=== PATIENT | female | born 1930 | race Caucasian/White ===

== ENCOUNTER 2016-12-16 06:49 | Day surgery (SDC) | payer MEDICARE, OTHER ==
[~2016-12-16 06:49] MED LIST: BUPIVACAINE HCL 0.75% INJ/PF (7.5 MG/1 ML) 10 ML SDV OS PRN; KETOROLAC TROMETHAMINE 0.45% 4 DROP/0.4 ML DROPERETTE OS PRN; LIDOCAINE 4% INJ/PF (40 MG/ML) 5 ML AMPUL OS PRN
[2016-12-16] MEDS ORDERED: PHENYLEPHRINE/KETOROLAC 1%-0.3% 4 ML VIAL ONE (07:12)
[2016-12-16] MEDS ORDERED: CHONDR SU A NA/HYALUR INTRAOC KIT (SURGICARE) ONE (07:12)
[2016-12-16] MEDS ORDERED: LIDOCAINE 1% INJ-PF (10 MG/ML) 30 ML SDV ONE (07:12)
[2016-12-16] MEDS ORDERED: HYALURONATE SODIUM SYRINGE 0.55 ML ONE (07:14)
[2016-12-16] MEDS: CYCLOPENTOLATE 0.2%/PHENYLEPHRINE 1% OPH SOLN 2 ML OS PRN ×3 (07:35→07:55)
[2016-12-16] MEDS: TROPICAMIDE 1% OPH SOLN 3 ML OS PRN ×3 (07:35→07:55)
[2016-12-16] MEDS: BESIFLOXACIN HCL 0.6% OPH SUSP 5 ML BOTTLE OS PRN ×4 (07:36→08:44)
[2016-12-16] MEDS: TETRACAINE HCL 0.5% OPH SOLN 0.6 ML DROPERETTE OS PRN ×2 (07:37→07:56)
[2016-12-16] MEDS ORDERED: MIDAZOLAM 2 MG/2 ML INJ ONE (07:45)
[2016-12-16] MEDS ORDERED: FENTANYL CITRATE INJ/PF 100 MCG/2 ML AMPUL ONE (07:45)
--- NOTE | 2016-12-16 09:23 | [facility] DISCHARGE SUMMARY E ---
[facility] Discharge Summary NAME: TAN ARAUJO AGE: 86Y ADMITTED: 12/16/2016 DISCHARGED: 12/16/2016 FINAL DIAGNOSES: 1. Cataract, left eye. 2. Glaucoma, left eye. INDICATIONS FOR SURGERY: Difficulty reading the newspaper and driving at night. HOSPITAL COURSE: The patient is an 86-year-old lady who underwent uneventful cataract extraction with insertion of iStent and intraocular lens, left eye. She will be discharged to home. She was instructed to resume preoperative medications, to take Tylenol as needed for discomfort, to keep her eye shielded, to use Besivance, Durezol and Ilevro at 3 p.m. and 8 p.m., to continue her Xalatan, and to follow up in my office in 1 day. DICTATING PHYSICIAN: DIANNE VALENCIA M.D. [id number] PHY#: [id number] ID: [id number] JOB#: [id number] ACCT: [id number] cc:DIANNE VALENCIA M.D. >
--- NOTE | 2016-12-16 09:24 | [facility] OPERATIVE REPORT E ---
[facility] Operative Report NAME: TAN ARAUJO AGE: 86Y DATE OF SURGERY: 12/16/2016 ROOM: PREOPERATIVE DIAGNOSES: 1. Cataract, left eye. 2. Glaucoma, left eye. POSTOPERATIVE DIAGNOSES: 1. Cataract, left eye. 2. Glaucoma, left eye. PROCEDURE PERFORMED: Phacoemulsification with posterior chamber intraocular lens, left eye, with insertion of iStent, left eye. SURGEON: DIANNE VALENCIA M.D. ANESTHESIA: Topical with MAC. PROCEDURE: The patient was brought to the Operating Room and placed on the operative table. Following tetracaine drops, topical anesthesia was administered. This consisted of instrument wipe pledgets soaked in a solution of 4% Xylocaine mixed with 0.75% Marcaine in a 1:2 ratio. A 2 x 1 cm pledget was placed in the superior fornix. A 1 x 1 cm pledget was placed in the inferior fornix. The eye was patched shut for 5 minutes. The patch was removed. The eye was sterilely prepped and draped in the usual manner. Lid speculum was placed in the eye. The pledgets were removed and 4-0 black silk sutures were placed around the superior and the inferior rectus muscles to be used as traction. A conjunctival peritomy was made at the 10 o'clock position. Hemostasis was obtained with bipolar cautery. A posterior limbal groove was created using a crescent knife and dissected anteriorly towards the cornea. A sharp point blade was used to create a paracentesis site at the 2 o'clock position. A 2.4-mm keratome was used to enter the anterior chamber through the groove. Viscoelastic was injected into the anterior chamber. An anterior capsulotomy was performed using Utrata forceps in a capsulorrhexis fashion. Hydrodissection and hydrodelineation were performed. Phacoemulsification was performed in schiau-bnp-wfmoqar technique. A total of 1 minute 27 seconds phaco time was used. Following this, the I/A unit was used to remove residual cortex. Viscoelastic was injected into the capsular bag. Intraocular lens model [id number], 23.0 diopters, serial number [id number], was placed in the capsular bag. Following insertion of intraocular lens, additional Provisc was placed in the eye. The microscope was tilted 30 degrees and the patient's head was rotated away from the microscope. A gonioprism was placed on the eye and the trabecular meshwork was adequately visualized. Viscoelastic was placed on the cornea. The iStent was opened. The iStent was placed in the incision and the goniolens placed back on the eye. The iStent was inserted into the trabecular meshwork uneventfully and seated well with reflux of blood through the lumen. The gonioprism was removed. The I/A unit was used to remove residual viscoelastic. The wound was seen to be watertight under high and low pressure, and no sutures were placed. The 4-0 black silk sutures and lid speculum were removed. Besivance was placed in the eye. The eye was shielded and the patient was sent to recovery room in good condition. DICTATING PHYSICIAN: DIANNE VALENCIA M.D. [id number] PHY#: [id number] ID: [id number] JOB#: [id number] ACCT: [id number] cc:DIANNE VALENCIA M.D. > MTDD
== END 2016-12-16 09:47 | disposition home or self-care (01) ==
LOC: SC 06:49
PROVIDERS: ATTEND Ophthalmology
PROC: 089330Z Drainage of Left Anterior Chamber with Drainage Device, Percutaneous Approach (ICD-10-PCS; 2016-12-16)
PROC: 08RK3JZ Replacement of Left Lens with Synthetic Substitute, Percutaneous Approach (ICD-10-PCS; principal; 2016-12-16 08:00)
DX: H25.812 Combined forms of age-related cataract, left eye (principal); H40.1121 Primary open-angle glaucoma, left eye, mild stage; E07.9 Disorder of thyroid, unspecified; Z79.899 Other long term (current) drug therapy
CPT/HCPCS: 0191T; 66984; 142; C1783; C9447; J2250; J3010; J3490; V2632

== ENCOUNTER 2017-01-06 08:41 | Day surgery (SDC) | payer MEDICARE, OTHER ==
[~2017-01-06 08:41] MED LIST changes: +BESIFLOXACIN HCL 0.6% OPH SUSP 5 ML BOTTLE OD PRN; +BUPIVACAINE HCL 0.75% INJ/PF (7.5 MG/1 ML) 10 ML SDV OD PRN; -BUPIVACAINE HCL 0.75% INJ/PF (7.5 MG/1 ML) 10 ML SDV OS PRN; +CYCLOPENTOLATE 0.2%/PHENYLEPHRINE 1% OPH SOLN 2 ML OD PRN; +KETOROLAC TROMETHAMINE 0.45% 4 DROP/0.4 ML DROPERETTE OD PRN; -KETOROLAC TROMETHAMINE 0.45% 4 DROP/0.4 ML DROPERETTE OS PRN; +LIDOCAINE 3.5% OPH GEL/PF 1 ML/TUBE OD PRN; +LIDOCAINE 4% INJ/PF (40 MG/ML) 5 ML AMPUL OD PRN; -LIDOCAINE 4% INJ/PF (40 MG/ML) 5 ML AMPUL OS PRN; +TROPICAMIDE 1% OPH SOLN 3 ML OD PRN
[2017-01-06] MEDS ORDERED: LIDOCAINE 1% INJ-PF (10 MG/ML) 30 ML SDV ONE (08:54)
[2017-01-06] MEDS ORDERED: PHENYLEPHRINE/KETOROLAC 1%-0.3% 4 ML VIAL ONE (08:54)
[2017-01-06] MEDS ORDERED: CHONDR SU A NA/HYALUR INTRAOC KIT (SURGICARE) ONE (08:54)
== END 2017-01-06 09:11 | disposition home or self-care (01) ==
LOC: SC 08:41
PROVIDERS: ATTEND Ophthalmology
DX: R69 Illness, unspecified (principal)
CPT/HCPCS: A9270 GY; C9447; J3490

== ENCOUNTER 2017-01-20 10:14 | Day surgery (SDC) | payer MEDICARE, OTHER ==
[~2017-01-20 10:14] MED LIST changes: -BESIFLOXACIN HCL 0.6% OPH SUSP 5 ML BOTTLE OD PRN; -CYCLOPENTOLATE 0.2%/PHENYLEPHRINE 1% OPH SOLN 2 ML OD PRN; -LIDOCAINE 3.5% OPH GEL/PF 1 ML/TUBE OD PRN; -TROPICAMIDE 1% OPH SOLN 3 ML OD PRN
[2017-01-20] MEDS ORDERED: LIDOCAINE 4% INJ/PF (40 MG/ML) 5 ML AMPUL ONE (11:46)
[2017-01-20] MEDS ORDERED: PHENYLEPHRINE/KETOROLAC 1%-0.3% 4 ML VIAL ONE (11:47)
[2017-01-20] MEDS ORDERED: LIDOCAINE 1% INJ-PF (10 MG/ML) 30 ML SDV ONE (11:47)
[2017-01-20] MEDS ORDERED: CHONDR SU A NA/HYALUR INTRAOC KIT (SURGICARE) ONE (11:48)
[2017-01-20] MEDS: CYCLOPENTOLATE 0.2%/PHENYLEPHRINE 1% OPH SOLN 2 ML OD PRN ×3 (11:54→12:14)
[2017-01-20] MEDS: BESIFLOXACIN HCL 0.6% OPH SUSP 5 ML BOTTLE OD PRN ×3 (11:54→13:37)
[2017-01-20] MEDS: TROPICAMIDE 1% OPH SOLN 3 ML OD PRN ×3 (11:54→12:14)
[2017-01-20] MEDS: LIDOCAINE 3.5% OPH GEL/PF 1 ML/TUBE OD PRN ×2 (11:55→12:14)
[2017-01-20] MEDS ORDERED: MIDAZOLAM 2 MG/2 ML INJ ONE (12:25)
[2017-01-20] MEDS ORDERED: FENTANYL CITRATE INJ/PF 100 MCG/2 ML AMPUL ONE (12:25)
--- NOTE | 2017-01-20 16:22 | [facility] OPERATIVE REPORT E ---
[facility] Operative Report NAME: TAN ARAUJO AGE: 86Y DATE OF SURGERY: 01/20/2017 ROOM: PREOPERATIVE DIAGNOSIS: 1. Cataract, right eye. 2. Glaucoma, right eye. POSTOPERATIVE DIAGNOSIS: 1. Cataract, right eye. 2. Glaucoma, right eye. OPERATION: Phacoemulsification with posterior chamber intraocular lens implant with insertion of eye stent, right eye. SURGEON: DIANNE VALENCIA M.D. ANESTHESIA: Topical with intraocular lidocaine. PROCEDURE: The patient was brought to the Operating Room and placed on the operative table. Following tetracaine drops, topical anesthesia was administered. This consisted of instrument wipe pledgets soaked in a solution of 4% Xylocaine mixed with 0.75% Marcaine in a 1:2 ratio. A 2 x 1 cm pledget was placed in the superior fornix. A 1 x 1 cm pledget was placed in the inferior fornix. The eye was patched shut for 5 minutes. The patch was removed. The eye was sterilely prepped and draped in the usual manner. Lid speculum was placed in the eye. The pledgets were removed. 4-0 black silk sutures were placed around the superior and the inferior rectus muscles to be used as traction. A conjunctival peritomy was made at the 10 o'clock position. Hemostasis was obtained with bipolar cautery. A posterior limbal groove was created using a crescent knife and dissected anteriorly towards the cornea. A sharp point blade was used to create a paracentesis site at the 2 o'clock position. A 2.4 mm keratome was used to enter the anterior chamber through the groove. Viscoelastic was injected into the anterior chamber. An anterior capsulotomy was performed using Utrata forceps in a capsulorrhexis fashion. Hydrodissection and hydrodelineation were performed. Phacoemulsification was performed in wnlpnx-hck-olflxiv technique. A total of 1 minute and 47 seconds phaco time was used. Following this, the I/A unit was used to remove residual cortex. Viscoelastic was injected into the capsular bag. Intraocular lens model SN60WF, 22.0 diopters, serial number [id number] was placed in the capsular bag. Following insertion of lens implant, additional Provisc was placed into the anterior chamber. The patient's head was rotated 30 degrees to the left, and the microscope was also tilted 30 degrees. A gonioprism was placed on the eye, and the trabecular mesh work was easily visualized. The eye stent was opened, and the eye stent was placed in the trabecular mesh work. It seated nicely with blood reflux through the lumen. Following this, the Malyugin eye unit was used to remove residual viscoelastic. The wound seemed to be watertight under high/low pressure and sutures were placed, 4-0 black silk sutures and lid speculum removed. The eye was shielded after Besivance drops were placed. The patient tolerated the procedure well and was sent to the recovery room in good condition. DICTATING PHYSICIAN: DIANNE VALENCIA M.D. [id number] PHY#: [id number] ID: [id number] JOB#: [id number] ACCT: [id number] cc:DIANNE VALENCIA M.D. > MTDD
--- NOTE | 2017-01-20 16:27 | DISCHARGE SUMMARY E ---
Discharge Summary NAME: TAN ARAUJO : 1930 AGE: 86Y ADMITTED: 01/20/2017 DISCHARGED: 01/20/2017 HISTORY AND HOSPITAL COURSE: The patient is an 86-year-old lady who underwent uneventful cataract extraction with intraocular lens implant with insertion of eye stent right eye on 01/20/2017. She will be discharged to home. She is instructed to resume preoperative medications, take Tylenol as needed for discomfort, to keep her eye shielded, to use Durezol, Ilevro, Besivance at 3:00 p.m. and 8:00 p.m., to use her latanoprost at night, and to follow up in my office in 1 day. DICTATING PHYSICIAN: DIANNE VALENCIA M.D. [id number] PHY#: [id number] ID: [id number] JOB#: [id number] ACCT: [id number] cc:DIANNE VALENCIA M.D. >
== END 2017-01-20 14:36 | disposition home or self-care (01) ==
LOC: SC 10:14
PROVIDERS: ATTEND Ophthalmology
PROC: 08RJ3JZ Replacement of Right Lens with Synthetic Substitute, Percutaneous Approach (ICD-10-PCS; 2017-01-20)
PROC: 089230Z Drainage of Right Anterior Chamber with Drainage Device, Percutaneous Approach (ICD-10-PCS; principal; 2017-01-20 11:45)
DX: H25.811 Combined forms of age-related cataract, right eye (principal); H40.1111 Primary open-angle glaucoma, right eye, mild stage; Z96.1 Presence of intraocular lens; Z98.42 Cataract extraction status, left eye; E07.9 Disorder of thyroid, unspecified
CPT/HCPCS: 0191T; 66984; 142; A9270 GY; C1783; C9447; J2250; J3010; J3490; V2632

== ENCOUNTER → 2017-05-14 | Outpatient (CLI) | payer MEDICARE, OTHER ==
--- NOTE | 2017-05-14 16:23 | WOMENS IMAGING REPORT ---
EXAM DESCRIPTION: BILAT SCREENING MAMMO W/CAD COMPLETED DATE/TIME: 05/14/2017 2:34 pm REASON FOR STUDY: SCREENING MAMMO Z12.31 ENCNTR SCREEN MAMMOGRAM FOR MALIGNANT NEOPLASM OF DOE COMPARISON: 2011 to 2015 TECHNIQUE: Standard craniocaudal and mediolateral oblique views of each breast recorded using digita l acquisition. LIMITATIONS: None. FINDINGS: No masses, calcifications or architectural distortion. No areas of suspicion. Read with the assistance of CAD. .[facility] - R2 Cenova Version 1.3 .[facility] Imaging - R2 Cenova Version 1.3 .[facility] - R2 Cenova Version 2.4 .[facility] - R2 Cenova Version 2.4 .[facility] - R2 Drill Operator Version 9.2 IMPRESSION: NORMAL MAMMOGRAM. BIRADS 1. BREAST DENSITY: b. There are scattered areas of fibroglandular density. BIRAD: 1 NEGATIVE RECOMMENDATION: ROUTINE SCREENING COMMENT: The patient has been notified of the results by letter per MQSA requirements. Additional no tification policies are in place for contacting patient with suspicious or incomplete findings. Quality ID #225: The [employer] recommends an annual screening mammogram for women aged 40 years or over. This facility utilizes a reminder system to ensure that all patients receive reminder letters, and/or direct phone calls for appointments. This includes reminders for routine scr eening mammograms, diagnostic mammograms, or other Breast Imaging Interventions when appropriate. Th is patient will be placed in the appropriate reminder system. The [employer] (ACR) has developed recommendations for screening MRI of the breast s in certain patient populations, to be used in conjunction with mammography. Breast MRI surveillanc e may be appropriate for women with more than 20% lifetime risk of developing breast cancer as deter mined by genetic testing, significant family history of the disease, or history of mantle radiation f or Hodgkins Disease. ACR Practice Guidelines 2008. TECHNICAL DOCUMENTATION: FINDING NUMBER: (1) ASSESSMENT: (1) JOB ID: [id number] [employer]- All Rights Reserved
== END ==
LOC: WI 13:25
PROVIDERS: ATTEND Internal Medicine
DX: Z12.31 Encounter for screening mammogram for malignant neoplasm of breast (principal)
CPT/HCPCS: 77067; G0202

== ENCOUNTER → 2018-05-28 | Outpatient (CLI) | payer MEDICARE, OTHER ==
[2018-05-28 10:00] LABS: ABSOLUTE BASOPHILS # (AUTO) 0.1 10^3/uL (0.0-0.2); ABSOLUTE EOSINOPHILS # (AUTO) 0.1 10^3/uL (0.0-0.6); ABSOLUTE LYMPHOCYTES (AUTO) 1.2 10^3/uL (0.5-4.7); ABSOLUTE MONOCYTES (AUTO) 1.3 10^3/uL (0.1-1.4); ABSOLUTE NEUT (AUTO) 8.3 10^3/uL (1.7-8.2); BASOPHILS % (AUTO) 0.5 % (0-2); EOSINOPHILS % (AUTO) 0.7 % (0-6); HEMATOCRIT 39.1 % (36.0-47.0); HEMOGLOBIN 13.8 g/dL (12.0-15.5); LYMPHOCYTES % (AUTO) 10.9 % (13-45); MEAN CORPUSCULAR HEMOGLOBIN 31.7 pg (27.0-33.4); MEAN CORPUSCULAR HGB CONC 35.4 g/dL (32.0-36.0); MEAN CORPUSCULAR VOLUME 90 fl (80-97); MONOCYTES % (AUTO) 11.8 % (3-13); PLATELET COUNT 280 10^3/uL (150-450); RED BLOOD COUNT 4.36 10^6/uL (3.72-5.28); RED CELL DISTRIBUTION WIDTH 13.4 % (11.5-14.0); SEGMENTED NEUTROPHILS % (AUTO) 76.1 % (42-78); TOTAL CELLS COUNTED % (AUTO) 100 %
[2018-05-29 12:31] LABS: ALANINE AMINOTRANSFERASE 28 U/L (9-52); ALKALINE PHOSPHATASE 51 U/L (38-126); ANION GAP 9 (5-19); ASPARTATE AMINO TRANSFERASE 46 U/L (14-36); BILIRUBIN,DIRECT 0.4 mg/dL (0.0-0.4); BILIRUBIN,TOTAL 0.7 mg/dL (0.2-1.3); BLOOD UREA NITROGEN 19 mg/dL (7-20); CALCIUM 9.4 mg/dL (8.4-10.2); CARBON DIOXIDE 28 mmol/L (22-30); CHLORIDE 96 mmol/L (98-107); CHOLESTEROL 133.27 mg/dL (0-200); GLUCOSE 107 mg/dL (75-110); POTASSIUM 4.3 mmol/L (3.6-5.0); SODIUM 132.7 mmol/L (137-145); TOTAL PROTEIN 5.8 g/dL (6.3-8.2); TRIGLYCERIDES 104 mg/dL (<150)
[2018-05-29 12:42] LABS: DIRECT LDL 62 mg/dL (<100)
[2018-05-29 12:48] LABS: FREE T4 (FREE THYROXINE) 1.43 ng/dL (0.78-2.19)
[2018-05-29 13:01] LABS: THYROID STIMULATING HORMONE 3.17 uIU/mL (0.47-4.68)
== END ==
LOC: OD 09:21
PROVIDERS: ATTEND Internal Medicine
DX: E03.9 Hypothyroidism, unspecified (principal); E43 Unspecified severe protein-calorie malnutrition; R53.83 Other fatigue; E78.00 Pure hypercholesterolemia, unspecified; F03.90 Unspecified dementia, unspecified severity, without behavioral disturbance, psychotic disturbance, mood disturbance, and anxiety
CPT/HCPCS: 36415; 80053; 80061; 82607; 84439; 84443; 85025

== ENCOUNTER → 2018-06-03 | Outpatient (CLI) | payer MEDICARE, OTHER ==
--- NOTE | 2018-06-03 14:49 | WOMENS IMAGING REPORT ---
EXAM DESCRIPTION: BILAT SCREENING MAMMO W/CAD COMPLETED DATE/TIME: 06/03/2018 12:15 pm REASON FOR STUDY: SCREENING MAMMO Z12.31 ENCNTR SCREEN MAMMOGRAM FOR MALIGNANT NEOPLASM OF DOE COMPARISON: Multiple since 2008 TECHNIQUE: Standard craniocaudal and mediolateral oblique views of each breast recorded using digita l acquisition. LIMITATIONS: None. FINDINGS: No masses, calcifications or architectural distortion. No areas of suspicion. Read with the assistance of CAD. .[facility] - R2 Cenova Version 1.3 .[facility] Imaging - R2 Cenova Version 1.3 .[facility] - R2 Cenova Version 2.4 .[facility] [place] - R2 Cenova Version 2.4 .[facility] - R2 Heating Mechanic Version 9.2 IMPRESSION: NORMAL MAMMOGRAM. BIRADS 1. BREAST DENSITY: b. There are scattered areas of fibroglandular density. BIRAD: 1 NEGATIVE RECOMMENDATION: ROUTINE SCREENING COMMENT: The patient has been notified of the results by letter per MQSA requirements. Additional no tification policies are in place for contacting patient with suspicious or incomplete findings. Quality ID #225: The [employer] recommends an annual screening mammogram for women aged 40 years or over. This facility utilizes a reminder system to ensure that all patients receive reminder letters, and/or direct phone calls for appointments. This includes reminders for routine scr eening mammograms, diagnostic mammograms, or other Breast Imaging Interventions when appropriate. Th is patient will be placed in the appropriate reminder system. The [employer] (ACR) has developed recommendations for screening MRI of the breast s in certain patient populations, to be used in conjunction with mammography. Breast MRI surveillanc e may be appropriate for women with more than 20% lifetime risk of developing breast cancer as deter mined by genetic testing, significant family history of the disease, or history of mantle radiation f or Hodgkins Disease. ACR Practice Guidelines 2008. TECHNICAL DOCUMENTATION: FINDING NUMBER: (1) ASSESSMENT: (1) JOB ID: [id number] [employer]- All Rights Reserved Reading location - IP/workstation name: [email or web address]
== END ==
LOC: WI 11:37
PROVIDERS: ATTEND Internal Medicine
DX: Z12.31 Encounter for screening mammogram for malignant neoplasm of breast (principal)
CPT/HCPCS: 77067

== ENCOUNTER 2018-06-10 17:26 | Inpatient (IN) | payer MEDICARE, OTHER ==
[~2018-06-10 17:26] MED LIST changes: -BUPIVACAINE HCL 0.75% INJ/PF (7.5 MG/1 ML) 10 ML SDV OD PRN; +DEXAMETHASONE SOD PHOSPHATE INJ 4 MG/1 ML VIAL ONE; -KETOROLAC TROMETHAMINE 0.45% 4 DROP/0.4 ML DROPERETTE OD PRN; +LIDOCAINE 2% INJ-PF (20 MG/ML) 2 ML AMPUL ONE; -LIDOCAINE 4% INJ/PF (40 MG/ML) 5 ML AMPUL OD PRN; +METOCLOPRAMIDE HCL INJ/PF 10 MG/2 ML SDV ONE; +ONDANSETRON HCL INJ/PF 4 MG/2 ML SDV ONE; +PHENYLEPHRINE HCL INJ/PF 10 MG/1 ML SDV ONE; +ROCURONIUM BROMIDE INJ 50 MG/5 ML VIAL IV ONE; +SUCCINYLCHOLINE CHLORIDE INJ 200 MG/10 ML VIAL ONE
[2018-06-10] MEDS ORDERED: NORMAL SALINE 1000 ML 1,000 ML IV ONE ×2 (18:04→21:25)
--- NOTE | 2018-06-10 18:08 | ER Document Report ---
ED Medical Screen (RME) - General Chief Complaint: Constipation Stated Complaint: ABDOMINAL PAIN Time Seen by Provider: 06/10/18 17:57 Mode of Arrival: Medic Information source: Patient, Relative - Son and [id number] Notes: Patient presents emergency department with complaints of severe abdominal pain past 3 days. Son reports very little p.o. intake drinks 1 Ensure a day with decreased appetite. Reports he had the same issue around Georgina time possible constipation. They have been giving patient prune juice and fluids and nothing has helped. Patient does not remember when her last bowel movement was. Abdomen is very distended very tender to palpation no bowel sounds noted TRAVEL OUTSIDE OF THE [place] IN LAST 30 DAYS: No - Related Data Allergies/Adverse Reactions: No Known Allergies Allergy (Unverified 11/11/11 11:18) Past Medical History - Past Medical History Cardiac Medical History: Denies: Hx Coronary Artery Disease, Hx Heart Attack, Hx Hypertension Pulmonary Medical History: Denies: Hx Asthma, Hx Bronchitis, Hx COPD, Hx Pneumonia Neurological Medical History: Denies: Hx Cerebrovascular Accident, Hx Seizures Endocrine Medical History: Reports: Hx Hypothyroidism GI Medical History: Denies: Hx Hepatitis, Hx Hiatal Hernia, Hx Ulcer Musculoskeltal Medical History: Denies Hx Arthritis Psychiatric Medical History: Reports: Hx Dementia Infectious Medical History: Denies: Hx Hepatitis Past Surgical History: Reports: Hx Tonsillectomy. Denies: Hx Hysterectomy, Hx Mastectomy, Hx Open Heart Surgery, Hx Pacemaker - Immunizations Hx Diphtheria, Pertussis, Tetanus Vaccination: Yes
[2018-06-10 18:34] LABS: ABSOLUTE LYMPHOCYTES (AUTO) 0.5 10^3/uL (0.5-4.7); ABSOLUTE MONOCYTES (AUTO) 0.5 10^3/uL (0.1-1.4); ABSOLUTE NEUT (AUTO) 8.6 10^3/uL (1.7-8.2); BASOPHILS % (AUTO) 0.2 % (0-2); HEMATOCRIT 47.3 % (36.0-47.0); LYMPHOCYTES % (AUTO) 5.3 % (13-45); MEAN CORPUSCULAR HEMOGLOBIN 30.9 pg (27.0-33.4); MEAN CORPUSCULAR HGB CONC 33.9 g/dL (32.0-36.0); MEAN CORPUSCULAR VOLUME 91 fl (80-97); MONOCYTES % (AUTO) 4.8 % (3-13); PLATELET COUNT 428 10^3/uL (150-450); RED BLOOD COUNT 5.18 10^6/uL (3.72-5.28); SEGMENTED NEUTROPHILS % (AUTO) 89.7 % (42-78); TOTAL CELLS COUNTED % (AUTO) 100 %; WHITE BLOOD COUNT 9.6 10^3/uL (4.0-10.5)
[2018-06-10 18:39] LABS: ALANINE AMINOTRANSFERASE 17 U/L (9-52); ALBUMIN 3.2 g/dL (3.5-5.0); ALKALINE PHOSPHATASE 56 U/L (38-126); ANION GAP 10 (5-19); ASPARTATE AMINO TRANSFERASE 70 U/L (14-36); BILIRUBIN,DIRECT 0.5 mg/dL (0.0-0.4); BILIRUBIN,TOTAL 0.9 mg/dL (0.2-1.3); BLOOD UREA NITROGEN 18 mg/dL (7-20); CALCIUM 9.6 mg/dL (8.4-10.2); CARBON DIOXIDE 28 mmol/L (22-30); CHLORIDE 92 mmol/L (98-107); GLUCOSE 232 mg/dL (75-110); LIPASE 105.1 U/L (23-300); POTASSIUM 4.6 mmol/L (3.6-5.0); TOTAL PROTEIN 6.3 g/dL (6.3-8.2)
--- NOTE | 2018-06-10 18:41 | RADIOLOGY REPORT (SQ) ---
EXAM DESCRIPTION: KUB/ABDOMEN (SINGLE VIEW) COMPLETED DATE/TIME: 06/10/2018 6:25 pm REASON FOR STUDY: distended, pain, ? constipation COMPARISON: None. NUMBER OF VIEWS: One view. TECHNIQUE: Supine radiographic image of the abdomen acquired. LIMITATIONS: None. FINDINGS: BOWEL GAS PATTERN: Relative paucity of bowel gas. No dilated loops. No excessive stool. CALCIFICATIONS: No suspicious calcifications. SOFT TISSUES: No gross mass or suggestion of organomegaly. HARDWARE: None in the abdomen. BONES: No acute fracture. Degenerative changes in the spine. No worrisome bone lesions. OTHER: No other significant finding. IMPRESSION: NO RADIOGRAPHIC EVIDENCE FOR ACUTE ABDOMINAL DISEASE. TECHNICAL DOCUMENTATION: JOB ID: [id number] [employer]- All Rights Reserved Reading location - IP/workstation name: [email or web address]
[2018-06-10] MEDS ORDERED: ACETAMINOPHEN 650 MG SUPP.RECT PR ONE (19:10)
--- NOTE | 2018-06-10 19:12 | ER Document Report ---
ED General - General Chief Complaint: Constipation Stated Complaint: ABDOMINAL PAIN Time Seen by Provider: 06/10/18 17:57 Mode of Arrival: Ambulatory Information source: Patient Notes: This is an 87-year-old female with a history of hypothyroidism emergency room with weakness, abdominal distention and abdominal pain for the last few days. Patient's family states she is been too weak to get out of bed. TRAVEL OUTSIDE OF THE [place] IN LAST 30 DAYS: No - HPI Onset: Last week Onset/Duration: Gradual Quality of pain: Dull Severity: Moderate Pain Level: 2 Associated symptoms: denies: Chest pain, Nonproductive cough, Diarrhea, Fever, Nausea, Vomiting, Shortness of breath Exacerbated by: Denies Relieved by: Denies Similar symptoms previously: No Recently seen / treated by doctor: No - Related Data Allergies/Adverse Reactions: No Known Allergies Allergy (Unverified 11/11/11 11:18) Past Medical History - General Information source: Patient, Relative - Son and [id number] - Social History Smoking Status: Never Smoker Cigarette use (# per day): No Chew tobacco use (# tins/day): No Frequency of alcohol use: None Drug Abuse: None Lives with: Family Family History: None Patient has suicidal ideation: No Patient has homicidal ideation: No - Past Medical History Cardiac Medical History: Denies: Hx Coronary Artery Disease, Hx Heart Attack, Hx Hypertension Pulmonary Medical History: Denies: Hx Asthma, Hx Bronchitis, Hx COPD, Hx Pneumonia Neurological Medical History: Denies: Hx Cerebrovascular Accident, Hx Seizures Endocrine Medical History: Reports: Hx Hypothyroidism Renal/ Medical History: Denies: Hx Peritoneal Dialysis GI Medical History: Denies: Hx Hepatitis, Hx Hiatal Hernia, Hx Ulcer Musculoskeletal Medical History: Denies Hx Arthritis Psychiatric Medical History: Reports: Hx Dementia Infectious Medical History: Denies: Hx Hepatitis Past Surgical History: Reports: Hx Tonsillectomy. Denies: Hx Hysterectomy, Hx Mastectomy, Hx Open Heart Surgery, Hx Pacemaker - Immunizations Hx Diphtheria, Pertussis, Tetanus Vaccination: Yes Review of Systems - Review of Systems Constitutional: denies: Chills, Fever EENT: No symptoms reported Cardiovascular: No symptoms reported Respiratory: No symptoms reported Gastrointestinal: See HPI, Abdominal pain Genitourinary: No symptoms reported Female Genitourinary: No symptoms reported Musculoskeletal: No symptoms reported Skin: No symptoms reported Hematologic/Lymphatic: No symptoms reported Neurological/Psychological: See HPI, Weakness Physical Exam - Vital signs Vitals: Temp Pulse Resp BP Pulse Ox 97.6 F 117 H 20 134/80 H 95 06/10/18 17:34 06/10/18 17:34 06/10/18 17:34 06/10/18 17:34 06/10/18 17:34 Notes: Physical exam: GENERAL: 87-year-old female, appears ill, answering questions HEAD: Atraumatic, normocephalic. EYES: Pupils equal round and reactive to light, extraocular movements intact, sclera anicteric, conjunctiva are normal. ENT: TMs normal, nares patent, oropharynx clear without exudates. Moist mucous membranes. NECK: Normal range of motion, supple without obvious mass or JVD. LUNGS: Breath sounds clear to auscultation bilaterally and equal. No wheezes rales or rhonchi. HEART: Regular rate and rhythm without murmurs, rubs or gallops. ABDOMEN: Soft, distended with lower abdominal tenderness more on the left side. Rectal: Scant stool in vault, brown stool, sent for study, temperature 101.4 rectally EXTREMITIES: Normal range of motion, no pitting or edema. No clubbing or cyanosis. Back: Patient has no palpable tenderness to the spine. NEUROLOGICAL: Cranial nerves II through XII grossly intact. Normal speech, moving all extremities. PSYCH: Normal mood, normal affect. SKIN: Warm, Dry, normal turgor, no rashes or lesions noted. Course - Re-evaluation Re-evalutation: 06/10/18 21:39 Patient is n.p.o. at this point. IV fluids and IV antibiotics being administered. I discussed the results of the CT with the radiologist as well as Dr. Keys (general surgery) - Vital Signs Vital signs: Temp Pulse Resp BP Pulse Ox 101.4 F H 100 24 H 151/88 H 100 06/10/18 19:03 06/10/18 22:11 06/10/18 22:11 06/10/18 22:11 06/10/18 22:11 - Laboratory Result Diagrams: 06/10/18 17:03 06/10/18 17:03 Laboratory results interpreted by me: 06/10/18 06/10/18 06/10/18 17:03 17:03 20:00 Hgb 16.0 H Hct 47.3 H Seg Neutrophils % 89.7 H Lymphocytes % 5.3 L Absolute Neutrophils 8.6 H Sodium 130.0 L Chloride 92 L Est GFR (Non-Af Amer) 57 L Glucose 232 H Lactic Acid 4.6 H Direct Bilirubin 0.5 H AST 70 H Albumin 3.2 L Urine Protein Urine Glucose (UA) Urine Ketones Urine Urobilinogen Urine Ascorbic Acid 06/10/18 22:17 Hgb Hct Seg Neutrophils % Lymphocytes % Absolute Neutrophils Sodium Chloride Est GFR (Non-Af Amer) Glucose Lactic Acid Direct Bilirubin AST Albumin Urine Protein 100 H Urine Glucose (UA) 50 H Urine Ketones TRACE H Urine Urobilinogen 2.0 H Urine Ascorbic Acid 40 H - Diagnostic Test Radiology reviewed: Image reviewed, Reports reviewed - CT of the abdomen shows free air under the left hemidiaphragm Critical Care Note - Critical Care Note Total time excluding time spent on procedures (mins): 60 Discharge - Discharge Clinical Impression: Acute peritonitis, Perforated viscus Condition: Serious Disposition: ADMITTED INPATIENT Admitting Provider: Surgicalist Unit Admitted: Surgical Floor
--- NOTE | 2018-06-10 19:38 | RADIOLOGY REPORT (SQ) ---
EXAM DESCRIPTION: CHEST SINGLE VIEW COMPLETED DATE/TIME: 06/10/2018 7:21 pm REASON FOR STUDY: chest pain COMPARISON: 01/26/2016. EXAM PARAMETERS: NUMBER OF VIEWS: One view. TECHNIQUE: Single frontal radiographic view of the chest acquired. RADIATION DOSE: NA LIMITATIONS: None. FINDINGS: LUNGS AND PLEURA: Mild pleural and parenchymal scarring. No opacities, masses or pneumoth orax. No pleural effusion. MEDIASTINUM AND HILAR STRUCTURES: No masses. Contour normal. HEART AND VASCULAR STRUCTURES: Heart normal in size. Normal vasculature. BONES: No acute findings. HARDWARE: None in the chest. OTHER: No other significant finding. IMPRESSION: CHRONIC SCARRING. NO ACUTE RADIOGRAPHIC FINDING IN THE CHEST. TECHNICAL DOCUMENTATION: JOB ID: [id number] [employer]- All Rights Reserved Reading location - IP/workstation name: [email or web address]
[2018-06-10] MEDS ORDERED: ERTAPENEM SODIUM INJ 1 GM VIAL IV ONE (20:28)
--- NOTE | 2018-06-10 21:24 | RADIOLOGY REPORT (SQ) ---
EXAM DESCRIPTION: CT ABDOMEN PELVIS WITH IV CONTRAST COMPLETED DATE/TME: 06/10/2018 19:07 CLINICAL HISTORY: 87 years, Female, acute abd pain COMPARISON: 01/26/2016 CT TECHNIQUE: 357 Images stored on PACS. All CT scanners at this facility use dose modulation, iterative reconstruction, and/or weight based dosing when appropriate to reduce radiation dose to as low as reasonably achievable (ALARA). [facility]: Dose Right [facility]: CareDose [facility]: Dose Right [facility]: Teradose 4D [facility]: Fullscreen LIMITATIONS: None. FINDINGS: Limited evaluation of the lung bases demonstrates small bibasilar pleural effusions. Osseous structures of the abdomen/pelvis are grossly intact. There is a large volume of free fluid. There is free intraperitoneal air, consistent with rupture of a hollow viscus. Exact site of the rupture is indeterminate. Subjective wall thickening of the distal esophagus. A large amount of the free intraperitoneal air is in the upper abdomen.. However, there are dilated fluid-filled loops of small bowel with relative decompression of the colon. The spleen, adrenal glands, are unremarkable. Atrophic appearance to the pancreas. There are lobulated cystic structures associated with the body of the stomach. These measure approximately 3.0 x 3.0 cm and 3.6 x 2.7 cm, respectively. Severe atheromatous change. Fibroid change to the uterus. Some of the free intraperitoneal air extends to the melba hepatis and into the posterior mediastinum/GE junction. Normal appendix.. IMPRESSION: Free intraperitoneal air consistent with rupture of a hollow viscus. Large volume of ascites. Exact site for the perforated viscus is indeterminate. Some of the free intraperitoneal air extends into the posterior mediastinum/GE junction region. Subjective wall thickening of the distal esophagus. There are 2 somewhat thick walled cystic masses associated with the stomach, possibly relating to gastric cysts versus pseudocysts. Areas of abscess not excluded . Atrophic appearance to the pancreas. Not stated previously, there is also a 3.8 mm hypodensity in the body of the pancreas which could reflect tiny cyst adenoma. Dilated fluid-filled loops of small bowel, with several small bowel loops having a thick-walled appearance. Findings may reflect reactive enteritis with ileus. Partial or incomplete obstruction not excluded. Small bibasilar pleural effusions.. TECHNICAL DOCUMENTATION: Quality ID # [id number]: Final reports with documentation of one or more dose reduction techniques (e.g., Automated exposure control, adjustment of the mA and/or kV according to patient size, use of iterative reconstruction technique) copyright 2010 [employer]- All Rights Reserved
--- NOTE | 2018-06-10 22:06 | PDOC H&P ---
History of Present Illness Admission Date/PCP: RAJ GUERRERO MD Patient complains of: Generalized weakness History of Present Illness: TAN ARAUJO is a 87 year old female With dementia noted with generalized weakness over the past couple weeks that has progressively worsened to the point where she has been bedbound for the last couple of days. Patient was noted with abdominal distention with marked tenderness today and she was subsequently brought in. She has had a poor appetite over the past several weeks. Uncertain whether she has had any fever. Uncertain whether she has experienced any constipation. Family notes that she has had no nausea or vomiting. And although she has had a poor appetite she has been holding down any that she consumes. She had a colonoscopy several years ago that apparently was normal. She has no history of gastrointestinal problems in the past. No history of reflux disease. No history of dysphasia. No alcoh ol nor cigarette smoking abuse. No family history of gastrointestinal malignancies. Past Medical History Cardiac Medical History: Denies: Coronary Artery Disease, Myocardial Infarction, Hypertension Pulmonary Medical History: Denies: Asthma, Bronchitis, Chronic Obstructive Pulmonary Disease (COPD), Pneumonia Neurological Medical History: Denies: Seizures Endocrine Medical History: Reports: Hypothyroidism GI Medical History: Denies: Hepatitis, Hiatal Hernia Musculoskeltal Medical History: Denies: Arthritis Psychiatric Medical History: Reports: Dementia Hematology: Denies: Anemia, Sickle Cell Disease Past Surgical History Past Surgical History: Reports: Tonsillectomy Denies: Amputation, Hysterectomy, Mastectomy, Pacemaker Social History Smoking Status: Never Smoker Frequency of Alcohol Use: None Hx Recreational Drug Use: No Family History Family History: None Parental Family History Reviewed: Yes Children Family History Reviewed: Yes Sibling(s) Family History Reviewed.: Yes Medication/Allergy Home Medications: Calcium/Magnesium/Vit D3 [Calcium 500 mg Tablet] 1,000 mg PO DAILY 11/11/11 Levothyroxine Sodium [Synthroid 88 Mcg Tablet] 88 mcg PO DAILY 11/11/11 Pnv W-O Ca No5/Fe Fumarate/FA [-U Capsule] 1 cap PO DAILY 11/11/11 Raloxifene HCl [Evista 60 mg Tablet] 60 mg PO DAILY 11/11/11 Besifloxacin HCl [Besivance 0.6% Oph Susp 5 ml] 1 drop OP ASDIR 12/09/16 Cyclosporine 0.05% Oph Emulsio [Restasis 0.05% Opthalmic Droperette] 1 drop OP ASDIR PRN 12/09/16 Difluprednate [Durezol] 1 drop OP ASDIR 12/09/16 Latanoprost 1 drop OP ASDIR 12/09/16 Nepafenac [Ilevro] 1 drop OP ASDIR 12/09/16 Tolterodine Tartrate [Detrol] 2 mg PO DAILY 12/09/16 Allergies/Adverse Reactions: No Known Allergies Allergy (Unverified 11/11/11 11:18) Review of Systems All systems: reviewed and no additional remarkable complaints except as stated Constitutional: PRESENT: as per HPI, other - No significant weight loss as per the family. Gastrointestinal: PRESENT: as per HPI Endocrine: PRESENT: other - History of hypothyroidism. Physical Exam Vital Signs: Temp Pulse Resp BP Pulse Ox 101.4 F H 117 H 20 134/80 H 95 06/10/18 19:03 06/10/18 17:34 06/10/18 17:34 06/10/18 17:34 06/10/18 17:34 Intake & Output 06/09/18 06/10/18 06/11/18 06:59 06:59 06:59 Intake Total 1000 Balance 1000 Weight 54.6 kg General appearance: PRESENT: no acute distress, cooperative Eye exam: PRESENT: conjunctiva pink Neck exam: PRESENT: other - Supple with no tenderness. No crepitus. Respiratory exam: PRESENT: clear to auscultation fahad Cardiovascular exam: PRESENT: tachycardia GI/Abdominal exam: PRESENT: other - Distended firm diffuse abdominal tenderness with guarding. Neurological exam: PRESENT: alert, awake Psychiatric exam: PRESENT: flat affect Skin exam: PRESENT: warm Results Laboratory Results: 06/10/18 17:03 06/10/18 17:03 06/10/18 06/10/18 06/10/18 17:03 17:03 19:03 WBC 9.6 RBC 5.18 Hgb 16.0 H Hct 47.3 H MCV 91 MCH 30.9 MCHC 33.9 RDW 14.0 Plt Count 428 Seg Neutrophils % 89.7 H Lymphocytes % 5.3 L Monocytes % 4.8 Eosinophils % 0.0 Basophils % 0.2 Absolute Neutrophils 8.6 H Absolute Lymphocytes 0.5 Absolute Monocytes 0.5 Absolute Eosinophils 0.0 Absolute Basophils 0.0 Sodium 130.0 L Potassium 4.6 Chloride 92 L Carbon Dioxide 28 Anion Gap 10 BUN 18 Creatinine 0.93 Est GFR ( Amer) > 60 Est GFR (Non-Af Amer) 57 L Glucose 232 H Lactic Acid Calcium 9.6 Total Bilirubin 0.9 AST 70 H ALT 17 Alkaline Phosphatase 56 Total Protein 6.3 Albumin 3.2 L Lipase 105.1 Stool Occult Blood NEGATIVE 06/10/18 20:00 WBC RBC Hgb Hct MCV MCH MCHC RDW Plt Count Seg Neutrophils % Lymphocytes % Monocytes % Eosinophils % Basophils % Absolute Neutrophils Absolute Lymphocytes Absolute Monocytes Absolute Eosinophils Absolute Basophils Sodium Potassium Chloride Carbon Dioxide Anion Gap BUN Creatinine Est GFR ( Amer) Est GFR (Non-Af Amer) Glucose Lactic Acid 4.6 H Calcium Total Bilirubin AST ALT Alkaline Phosphatase Total Protein Albumin Lipase Stool Occult Blood Impressions: KUB X-Ray 06/10/18 18:05 IMPRESSION: NO RADIOGRAPHIC EVIDENCE FOR ACUTE ABDOMINAL DISEASE. Abdomen/Pelvis CT 06/10/18 19:07 IMPRESSION: Free intraperitoneal air consistent with rupture of a hollow viscus. Large volume of ascites. Exact site for the perforated viscus is indeterminate. Some of the free intraperitoneal air extends into the posterior mediastinum/GE junction region. Subjective wall thickening of the distal esophagus. There are 2 somewhat thick walled cystic masses associated with the stomach, possibly relating to gastric cysts versus pseudocysts. Areas of abscess not excluded . Atrophic appearance to the pancreas. Not stated previously, there is also a 3.8 mm hypodensity in the body of the pancreas which could reflect tiny cyst adenoma. Dilated fluid-filled loops of small bowel, with several small bowel loops having a thick-walled appearance. Findings may reflect reactive enteritis with ileus. Partial or incomplete obstruction not excluded. Small bibasilar pleural effusions.. TECHNICAL DOCUMENTATION: Quality ID # 436: Final reports with documentation of one or more dose reduction techniques (e.g., Automated exposure control, adjustment of the mA and/or kV according to patient size, use of iterative reconstruction technique) copyright 2011 [employer]- All Rights Reserved Chest X-Ray 06/10/18 19:08 IMPRESSION: CHRONIC SCARRING. NO ACUTE RADIOGRAPHIC FINDING IN THE CHEST. Assessment & Plan - Diagnosis (1) Bowel perforation Is this a current diagnosis for this admission?: Yes Plan: Bowel perforation with peritoneal signs. Patient septic. Will plan exploratory laparotomy. Possible bowel resection possible ostomy. I have explained to the patient's family the risk and benefits of the procedure including risk of adjacent structure injury, bleeding, infection, poor healing, cardiopulmonary risks. They understand and agreed to proceed. They understand that there is a distinct possibility of having to do an ostomy.
[2018-06-10] MEDS ORDERED: BUPIVACAINE HCL 0.25 % INJ/PF (2.5 MG/1 ML) 30 ML VIAL ONE (22:21)
[2018-06-10 22:34] LABS: APPEARANCE,URINE CLOUDY; BILIRUBIN,URINE NEGATIVE (NEGATIVE); COLOR,URINE AMBER; GLUCOSE, URINE 50 mg/dL (NEGATIVE); KETONES,URINE TRACE mg/dL (NEGATIVE); LEUKOCYTE ESTERASE,URINE NEGATIVE (NEGATIVE); NITRITE,URINE NEGATIVE (NEGATIVE); PROTEIN,URINE 100 mg/dL (NEGATIVE); URINE SPECIFIC GRAVITY 1.054
[2018-06-10] MEDS ORDERED: ACETAMINOPHEN 0 MG/0 ML RTUPB IV ONE (22:41)
[2018-06-10] MEDS ORDERED: MIDAZOLAM 2 MG/2 ML INJ ONE (22:41)
[2018-06-10] MEDS ORDERED: PROPOFOL INJ 200 MG/20 ML VIAL IV ONE (22:41)
[2018-06-10] MEDS ORDERED: FENTANYL CITRATE INJ/PF 250 MCG/5 ML AMPULE ONE (22:41)
[2018-06-10] MEDS ORDERED: DEXMEDETOMIDINE INJ 80 MCG/20 ML VIAL IV ONE (22:42)
[2018-06-10] MEDS ORDERED: EPHEDRINE SULFATE INJ 50 MG/1 ML AMPULE ONE (22:42)
[2018-06-10] MEDS ORDERED: MORPHINE SULFATE 10 MG/ML INJ ONE (22:42)
[2018-06-11] MEDS ORDERED: SUGAMMADEX SODIUM 200 MG/2 ML SDV IV ONE (00:08)
[2018-06-11] MEDS ORDERED: MIDAZOLAM 2 MG/2 ML INJ ONE (01:07)
[2018-06-11] MEDS ORDERED: ONDANSETRON HCL INJ/PF 4 MG/2 ML SDV IV PRN (01:59)
[2018-06-11] MEDS ORDERED: GLUCAGON,HUMAN RECOMB 1 MG INJ SUBCUT PRN (01:59)
[2018-06-11] MEDS ORDERED: DEXTROSE 40% GEL 15 GM TUBE PO PRN ×2 (01:59)
[2018-06-11] MEDS ORDERED: DEXTROSE 50%-WATER 25 GM/50 ML DISP.SYRIN IV PRN ×2 (01:59)
[2018-06-11] MEDS: NORMAL SALINE 1000 ML 1,000 ML IV PRN ×3 (03:04→16:46)
[2018-06-11 03:06] LABS: ANION GAP 5 (5-19); BLOOD UREA NITROGEN 16 mg/dL (7-20); CALCIUM 8.2 mg/dL (8.4-10.2); CARBON DIOXIDE 23 mmol/L (22-30); CHLORIDE 104 mmol/L (98-107); GLUCOSE 167 mg/dL (75-110); POTASSIUM 4.5 mmol/L (3.6-5.0); SODIUM 132.2 mmol/L (137-145)
[2018-06-11 03:09] LABS: HEMATOCRIT 47.2 % (36.0-47.0); HEMOGLOBIN 15.4 g/dL (12.0-15.5); MEAN CORPUSCULAR HEMOGLOBIN 30.1 pg (27.0-33.4); MEAN CORPUSCULAR HGB CONC 32.6 g/dL (32.0-36.0); MEAN CORPUSCULAR VOLUME 92 fl (80-97); PLATELET COUNT 280 10^3/uL (150-450); RED BLOOD COUNT 5.12 10^6/uL (3.72-5.28); WHITE BLOOD COUNT 14.2 10^3/uL (4.0-10.5)
[2018-06-11] MEDS: CEFAZOLIN 1 GM/D5W RTU 1 GM/50 ML RTUPB IV SCH ×2 (03:20→09:25)
[2018-06-11] MEDS ORDERED: FLUCONAZOLE 100 MG TABLET ONE (03:42)
[2018-06-11] MEDS ORDERED: FLUCONAZOLE 200 MG/NS RTU 200 MG/100 ML RTUPB IV ONE (04:06)
--- NOTE | 2018-06-11 04:27 | PDOC PROGRESS REPORT ---
Subjective Progress Note for:: 06/11/18 Subjective:: Intubated and sedated. Reason For Visit: PERFORATED GASTRIC ULCER Physical Exam Vital Signs: Temp Pulse Resp BP Pulse Ox 95.7 F L 90 10 L 96/70 L 99 06/11/18 02:13 06/11/18 02:13 06/11/18 02:13 06/11/18 02:13 06/11/18 04:15 Intake & Output 06/09/18 06/10/18 06/11/18 06:59 06:59 06:59 Intake Total 4000 2050 Output Total 110 Balance 4000 1940 Weight 55.9 kg General appearance: PRESENT: no acute distress Respiratory exam: PRESENT: clear to auscultation fahad Cardiovascular exam: PRESENT: RRR - Rate 100 GI/Abdominal exam: PRESENT: other - Soft, nondistended, unable to appreciate whether she is tender. Results Laboratory Results: 06/11/18 02:43 06/11/18 02:43 06/10/18 06/10/18 06/10/18 17:03 17:03 19:03 WBC 9.6 RBC 5.18 Hgb 16.0 H Hct 47.3 H MCV 91 MCH 30.9 MCHC 33.9 RDW 14.0 Plt Count 428 Seg Neutrophils % 89.7 H Lymphocytes % 5.3 L Monocytes % 4.8 Eosinophils % 0.0 Basophils % 0.2 Absolute Neutrophils 8.6 H Absolute Lymphocytes 0.5 Absolute Monocytes 0.5 Absolute Eosinophils 0.0 Absolute Basophils 0.0 Sodium 130.0 L Potassium 4.6 Chloride 92 L Carbon Dioxide 28 Anion Gap 10 BUN 18 Creatinine 0.93 Est GFR ( Amer) > 60 Est GFR (Non-Af Amer) 57 L Glucose 232 H Lactic Acid Calcium 9.6 Total Bilirubin 0.9 AST 70 H ALT 17 Alkaline Phosphatase 56 Total Protein 6.3 Albumin 3.2 L Lipase 105.1 Urine Color Urine Appearance Urine pH Ur Specific [place] Urine Protein Urine Glucose (UA) Urine Ketones Urine Blood Urine Nitrite Ur Leukocyte Esterase Urine WBC (Auto) Urine RBC (Auto) Stool Occult Blood NEGATIVE 06/10/18 06/10/18 06/11/18 20:00 22:17 02:43 WBC RBC Hgb Hct MCV MCH MCHC RDW Plt Count Seg Neutrophils % Lymphocytes % Monocytes % Eosinophils % Basophils % Absolute Neutrophils Absolute Lymphocytes Absolute Monocytes Absolute Eosinophils Absolute Basophils Sodium Potassium Chloride Carbon Dioxide Anion Gap BUN Creatinine Est GFR ( Amer) Est GFR (Non-Af Amer) Glucose Lactic Acid 4.6 H 3.5 H Calcium Total Bilirubin AST ALT Alkaline Phosphatase Total Protein Albumin Lipase Urine Color LUCÍA Urine Appearance CLOUDY Urine pH 5.0 Ur Specific [place] 1.054 Urine Protein 100 H Urine Glucose (UA) 50 H Urine Ketones TRACE H Urine Blood NEGATIVE Urine Nitrite NEGATIVE Ur Leukocyte Esterase NEGATIVE Urine WBC (Auto) 7 Urine RBC (Auto) 7 Stool Occult Blood 06/11/18 06/11/18 02:43 02:43 WBC 14.2 H RBC 5.12 Hgb 15.4 Hct 47.2 H MCV 92 MCH 30.1 MCHC 32.6 RDW 14.0 Plt Count 280 Seg Neutrophils % Lymphocytes % Monocytes % Eosinophils % Basophils % Absolute Neutrophils Absolute Lymphocytes Absolute Monocytes Absolute Eosinophils Absolute Basophils Sodium 132.2 L Potassium 4.5 Chloride 104 Carbon Dioxide 23 Anion Gap 5 BUN 16 Creatinine 0.60 Est GFR ( Amer) > 60 Est GFR (Non-Af Amer) > 60 Glucose 167 H Lactic Acid Calcium 8.2 L Total Bilirubin AST ALT Alkaline Phosphatase Total Protein Albumin Lipase Urine Color Urine Appearance Urine pH Ur Specific [place] Urine Protein Urine Glucose (UA) Urine Ketones Urine Blood Urine Nitrite Ur Leukocyte Esterase Urine WBC (Auto) Urine RBC (Auto) Stool Occult Blood Impressions: KUB X-Ray 06/10/18 18:05 IMPRESSION: NO RADIOGRAPHIC EVIDENCE FOR ACUTE ABDOMINAL DISEASE. Abdomen/Pelvis CT 06/10/18 19:07 IMPRESSION: Free intraperitoneal air consistent with rupture of a hollow viscus. Large volume of ascites. Exact site for the perforated viscus is indeterminate. Some of the free intraperitoneal air extends into the posterior mediastinum/GE junction region. Subjective wall thickening of the distal esophagus. There are 2 somewhat thick walled cystic masses associated with the stomach, possibly relating to gastric cysts versus pseudocysts. Areas of abscess not excluded . Atrophic appearance to the pancreas. Not stated previously, there is also a 3.8 mm hypodensity in the body of the pancreas which could reflect tiny cyst adenoma. Dilated fluid-filled loops of small bowel, with several small bowel loops having a thick-walled appearance. Findings may reflect reactive enteritis with ileus. Partial or incomplete obstruction not excluded. Small bibasilar pleural effusions.. TECHNICAL DOCUMENTATION: Quality ID # 436: Final reports with documentation of one or more dose reduction techniques (e.g., Automated exposure control, adjustment of the mA and/or kV according to patient size, use of iterative reconstruction technique) copyright 2011 [employer]- All Rights Reserved Chest X-Ray 06/10/18 19:08 IMPRESSION: CHRONIC SCARRING. NO ACUTE RADIOGRAPHIC FINDING IN THE CHEST. Assessment & Plan - Diagnosis (1) Bowel perforation Is this a current diagnosis for this admission?: Yes Plan: Gastric ulcer perforation status post omental patch and feeding tube placement. She looks reasonably well postoperatively. Will begin tube feeds via jejunal feeding tube tomorrow. Pending callback from [facility] concerning possible transfer for definitive management of complex gastric ulcer. Keep intubated overnight.
[2018-06-11 05:09] LABS: ARTERIAL BLOOD BASE EXCESS -6.6 mmol/L; ARTERIAL BLOOD H2CO3 1.71 mmol/L (1.05-1.35); ARTERIAL BLOOD HCO3 22.1 mmol/L (20-24); ARTERIAL BLOOD O2 SATURATION 98.6 % (94-98); ARTERIAL BLOOD PCO2 56.8 mmHg (35-45); ARTERIAL BLOOD PH 7.21 (7.35-7.45); ARTERIAL BLOOD PO2 157.8 mmHg (80-100); ARTERIAL BLOOD TOTAL CO2 23.8 mmol/L (21-25)
[2018-06-11 05:11] LABS: ARTERIAL BLOOD FIO2 40%
[2018-06-11] MEDS: FLUCONAZOLE 200 MG/NS RTU 200 MG/100 ML RTUPB IV SCH (05:25)
[2018-06-11] MEDS: MIDAZOLAM 2 MG/2 ML INJ IV PRN ×2 (05:25→09:26)
[2018-06-11] MEDS ORDERED: NORMAL SALINE 500 ML IV ONE (06:00)
--- NOTE | 2018-06-11 06:26 | RADIOLOGY REPORT (SQ) ---
EXAM DESCRIPTION: X-ray single view chest. CLINICAL HISTORY: 87 years Female, Confirm ETT, NG placement COMPARISON: 06/10/2018 TECHNIQUE: Single portable view of the chest performed on 06/11/2018 at 5:42 AM FINDINGS: The lungs are well expanded and are grossly clear. There appears to be mild fibrosis in the lung bases. There is no evidence of a pneumothorax. The cardiac silhouette is normal in size and configuration. The mediastinal contours are normal. No acute osseous abnormality is identified. No focal soft tissue abnormalities are seen. Lines and tubes: The endotracheal tube and feeding tube are grossly stable as visualized. There are multiple overlying environmental monitoring specialist leads. IMPRESSION: 1. No definite acute intrathoracic disease. There is mild chronic scarring in the lung bases. 2. Stable life support lines and tubes as visualized.
--- NOTE | 2018-06-11 08:13 | PDOC PROGRESS REPORT ---
Subjective Progress Note for:: 06/11/18 Reason For Visit: PERFORATED GASTRIC ULCER pt intubated pt on versed Physical Exam Vital Signs: Temp Pulse Resp BP Pulse Ox 99.1 F 106 H 10 L 102/62 98 06/11/18 07:50 06/11/18 07:50 06/11/18 07:50 06/11/18 07:50 06/11/18 07:50 Intake & Output 06/10/18 06/11/18 06/12/18 06:59 06:59 06:59 Intake Total 4000 2650 Output Total 225 Balance 4000 2425 Weight 55.9 kg Respiratory exam: PRESENT: clear to auscultation fahad, unlabored GI/Abdominal exam: PRESENT: other - pt with lower distension tympanitic yonny's serous feeding tube in place Results Laboratory Results: 06/11/18 02:43 06/11/18 02:43 06/10/18 06/10/18 06/10/18 17:03 17:03 19:03 WBC 9.6 RBC 5.18 Hgb 16.0 H Hct 47.3 H MCV 91 MCH 30.9 MCHC 33.9 RDW 14.0 Plt Count 428 Seg Neutrophils % 89.7 H Lymphocytes % 5.3 L Monocytes % 4.8 Eosinophils % 0.0 Basophils % 0.2 Absolute Neutrophils 8.6 H Absolute Lymphocytes 0.5 Absolute Monocytes 0.5 Absolute Eosinophils 0.0 Absolute Basophils 0.0 Carbonic Acid HCO3/H2CO3 Ratio ABG pH ABG pCO2 ABG pO2 ABG HCO3 ABG O2 Saturation ABG Base Excess FiO2 Sodium 130.0 L Potassium 4.6 Chloride 92 L Carbon Dioxide 28 Anion Gap 10 BUN 18 Creatinine 0.93 Est GFR ( Amer) > 60 Est GFR (Non-Af Amer) 57 L Glucose 232 H Lactic Acid Calcium 9.6 Total Bilirubin 0.9 AST 70 H ALT 17 Alkaline Phosphatase 56 Total Protein 6.3 Albumin 3.2 L Lipase 105.1 Urine Color Urine Appearance Urine pH Ur Specific [place] Urine Protein Urine Glucose (UA) Urine Ketones Urine Blood Urine Nitrite Ur Leukocyte Esterase Urine WBC (Auto) Urine RBC (Auto) Stool Occult Blood NEGATIVE 06/10/18 06/10/18 06/11/18 20:00 22:17 02:43 WBC RBC Hgb Hct MCV MCH MCHC RDW Plt Count Seg Neutrophils % Lymphocytes % Monocytes % Eosinophils % Basophils % Absolute Neutrophils Absolute Lymphocytes Absolute Monocytes Absolute Eosinophils Absolute Basophils Carbonic Acid HCO3/H2CO3 Ratio ABG pH ABG pCO2 ABG pO2 ABG HCO3 ABG O2 Saturation ABG Base Excess FiO2 Sodium Potassium Chloride Carbon Dioxide Anion Gap BUN Creatinine Est GFR ( Amer) Est GFR (Non-Af Amer) Glucose Lactic Acid 4.6 H 3.5 H Calcium Total Bilirubin AST ALT Alkaline Phosphatase Total Protein Albumin Lipase Urine Color LUCÍA Urine Appearance CLOUDY Urine pH 5.0 Ur Specific [place] 1.054 Urine Protein 100 H Urine Glucose (UA) 50 H Urine Ketones TRACE H Urine Blood NEGATIVE Urine Nitrite NEGATIVE Ur Leukocyte Esterase NEGATIVE Urine WBC (Auto) 7 Urine RBC (Auto) 7 Stool Occult Blood 06/11/18 06/11/18 06/11/18 02:43 02:43 04:55 WBC 14.2 H RBC 5.12 Hgb 15.4 Hct 47.2 H MCV 92 MCH 30.1 MCHC 32.6 RDW 14.0 Plt Count 280 Seg Neutrophils % Lymphocytes % Monocytes % Eosinophils % Basophils % Absolute Neutrophils Absolute Lymphocytes Absolute Monocytes Absolute Eosinophils Absolute Basophils Carbonic Acid 1.71 H HCO3/H2CO3 Ratio 12:1 ABG pH 7.21 L ABG pCO2 56.8 H ABG pO2 157.8 H ABG HCO3 22.1 ABG O2 Saturation 98.6 H ABG Base Excess -6.6 FiO2 40% Sodium 132.2 L Potassium 4.5 Chloride 104 Carbon Dioxide 23 Anion Gap 5 BUN 16 Creatinine 0.60 Est GFR ( Amer) > 60 Est GFR (Non-Af Amer) > 60 Glucose 167 H Lactic Acid Calcium 8.2 L Total Bilirubin AST ALT Alkaline Phosphatase Total Protein Albumin Lipase Urine Color Urine Appearance Urine pH Ur Specific [place] Urine Protein Urine Glucose (UA) Urine Ketones Urine Blood Urine Nitrite Ur Leukocyte Esterase Urine WBC (Auto) Urine RBC (Auto) Stool Occult Blood Impressions: KUB X-Ray 06/10/18 18:05 IMPRESSION: NO RADIOGRAPHIC EVIDENCE FOR ACUTE ABDOMINAL DISEASE. Abdomen/Pelvis CT 06/10/18 19:07 IMPRESSION: Free intraperitoneal air consistent with rupture of a hollow viscus. Large volume of ascites. Exact site for the perforated viscus is indeterminate. Some of the free intraperitoneal air extends into the posterior mediastinum/GE junction region. Subjective wall thickening of the distal esophagus. There are 2 somewhat thick walled cystic masses associated with the stomach, possibly relating to gastric cysts versus pseudocysts. Areas of abscess not excluded . Atrophic appearance to the pancreas. Not stated previously, there is also a 3.8 mm hypodensity in the body of the pancreas which could reflect tiny cyst adenoma. Dilated fluid-filled loops of small bowel, with several small bowel loops having a thick-walled appearance. Findings may reflect reactive enteritis with ileus. Partial or incomplete obstruction not excluded. Small bibasilar pleural effusions.. TECHNICAL DOCUMENTATION: Quality ID # 436: Final reports with documentation of one or more dose reduction techniques (e.g., Automated exposure control, adjustment of the mA and/or kV according to patient size, use of iterative reconstruction technique) copyright 2011 [employer]- All Rights Reserved Chest X-Ray 06/11/18 04:45 IMPRESSION: 1. No definite acute intrathoracic disease. There is mild chronic scarring in the lung bases. 2. Stable life support lines and tubes as visualized. Assessment & Plan - Plan Summary Plan Summary: pt is s/p perforated gastric ulcer, large phlegmon in luq involving pancreas and spleen wide local drainage and omental patch performed plan extubation per pulmonary. will cont post op care cont iv abx await return of bowel function will need definitive resection, however need to discuss with pt and family when she is stable will need 2-3 wks of improved nutrition if she elects to undergo resection
[2018-06-11] MEDS ORDERED: PHARMACY COMMUNICATION ORDER MC NR (08:30)
[2018-06-11] MEDS: PANTOPRAZOLE SODIUM 40 MG VIAL IV SCH ×2 (09:25→22:29)
[2018-06-11] MEDS: MORPHINE SULFATE 10 MG/ML INJ IV PRN ×2 (09:26→13:53)
[2018-06-11] MEDS ORDERED: ALBUMIN HUMAN 12.5 GM/50 ML RTUINJ IV ONE (11:15)
[2018-06-11] MEDS ORDERED: NORMAL SALINE 1000 ML 1,000 ML IV ONE ×3 (11:15→23:30)
[2018-06-11] MEDS: MIDAZOLAM HCL 50 MG/100 ML RTUINJ IV PRN (11:43)
[2018-06-11 12:05] LABS: ARTERIAL BLOOD BASE EXCESS -4.9 mmol/L; ARTERIAL BLOOD H2CO3 1.18 mmol/L (1.05-1.35); ARTERIAL BLOOD HCO3 20.5 mmol/L (20-24); ARTERIAL BLOOD O2 SATURATION 99.4 % (94-98); ARTERIAL BLOOD PCO2 39.3 mmHg (35-45); ARTERIAL BLOOD PH 7.34 (7.35-7.45); ARTERIAL BLOOD PO2 213.5 mmHg (80-100); ARTERIAL BLOOD TOTAL CO2 21.7 mmol/L (21-25)
[2018-06-11 12:07] LABS: ARTERIAL BLOOD FIO2 40%
[2018-06-11] MEDS ORDERED: NOREPINEPHRINE BITARTRATE INJ/PF 4 MG/4 ML SDV IV ONE (12:59)
[2018-06-11] MEDS ORDERED: VANCOMYCIN HCL 0 MG in DEXTROSE 5%-WATER 250 ML IV NR (14:00)
--- NOTE | 2018-06-11 15:24 | Operative Report ---
Bedside Procedure - History of Present Illness Indication for Procedure: sepsis Date: 06/11/18 Surgeon: BOB CHAVEZ - Central Line Left Subclavian Central line pre-insertion: Sterile PPE donned, Betadine prep applied, Chloraprep applied Central line lumen type: Triple Anesthetic type: 1% Lidocaine Ultrasound guided: No CM at insertion site: 15 Line secured with sutures: Yes Central line post-insertion: Blood return from lumens, Biopatch applied, Sutured, Sterile dressing applied, Position confirmed w/ CXR Number of attempts: 1 Complications: No
[2018-06-11] MEDS: LEVALBUTEROL HCL NEB 0.63 MG/3 ML AMPUL NEB SCH (16:01)
--- NOTE | 2018-06-11 16:08 | RADIOLOGY REPORT (SQ) ---
EXAM DESCRIPTION: CHEST SINGLE VIEW COMPLETED DATE/TIME: 06/11/2018 3:39 pm REASON FOR STUDY: Central Line Placement COMPARISON: 06/11/2018 0542 hours EXAM PARAMETERS: NUMBER OF VIEWS: One view TECHNIQUE: Single frontal radiograph of the chest. RADIATION DOSE: N/A LIMITATIONS: None. FINDINGS: TEMPORARY SUPPORT DEVICES:ETT in expected location. NG tube courses below the du-diaphr agm in to the stomach. Central venous access catheter tip is in expected location. LUNGS AND PLEURA: New opacity at the left lung base. Likely atelectasis. No effusions. No masses. N o pneumothorax. MEDIASTINUM AND HILAR STRUCTURES: No masses. Contour normal. HEART AND VASCULAR STRUCTURES: Heart normal in size. normal vascularity. Aorta normal for age. BONES: No acute findings. OTHER: No other significant finding. IMPRESSION: New opacity at the left lung base. Likely atelectasis. SUPPORT DEVICE(S) IN EXPECTED LOCATIONS. TECHNICAL DOCUMENTATION: JOB ID: [id number] [employer]- All Rights Reserved Reading location - IP/workstation name: [email or web address]
[2018-06-11] MEDS: VANCOMYCIN HCL 1,000 MG in DEXTROSE 5%-WATER 250 ML IV SCH (16:45)
[2018-06-11] MEDS: CEFEPIME 1 GM/D5W RTU 1 GM/50 ML RTUPB IV SCH (17:00)
--- NOTE | 2018-06-11 21:11 | PDOC CONSULTATION ---
Consultation Consult Date: 06/11/18 Attending physician:: BOB CHAVEZ Consult reason:: Medical management History of Present Illness Admission Date/PCP: 06/10/18 22:28 RAJ GUERRERO MD Patient complains of: Patient presented with abdominal distention and pain. History of Present Illness: TAN ARAUJO is a 87 year old female who presented to the hospital on June 10. Please also see the surgical admission note. The patient had been developing weakness as well as abdominal distention. The abdomen became markedly tender on the day of admission. She was brought to the emergency department. She had not exhibited any nausea or vomiting. She did not have an elevated white blood cell count. A CT scan of the abdomen and pelvis was performed and free intraperitoneal air was noted. There is a large volume of ascites. There were 2 thick walled cystic masses associated with the stomach. There was also thickening of some of the loops of small bowel. The patient was taken to the operating room. A large phlegmon was identified and drained. There was a perforation of the stomach. Postoperatively the patient transferred to the intensive care unit and remains intubated. Past Medical History Cardiac Medical History: Denies: Coronary Artery Disease, Myocardial Infarction, Hypertension Pulmonary Medical History: Denies: Asthma, Bronchitis, Chronic Obstructive Pulmonary Disease (COPD), Pneumonia Neurological Medical History: Denies: Seizures Endocrine Medical History: Reports: Hypothyroidism GI Medical History: Denies: Hepatitis, Hiatal Hernia Musculoskeltal Medical History: Denies: Arthritis Psychiatric Medical History: Reports: Dementia Hematology: Denies: Anemia, Sickle Cell Disease Past Surgical History Past Surgical History: Reports: Tonsillectomy Denies: Amputation, Hysterectomy, Mastectomy, Pacemaker Social History Lives with: Family Smoking Status: Never Smoker Frequency of Alcohol Use: None Hx Recreational Drug Use: No Drugs: None Hx Prescription Drug Abuse: No Family History Family History: None Parental Family History Reviewed: Yes Children Family History Reviewed: Yes Sibling(s) Family History Reviewed.: Yes Medication/Allergy Home Medications: Calcium Carbonate [Calcium] 500 mg PO DAILY 06/11/18 Cyclosporine 0.05% Oph Emulsio [Restasis 0.05% Oph Emulsion Pf 0.4 ml] 1 drop OU BID 06/11/18 Levothyroxine Sodium [Synthroid 0.075 mg Tablet] 0.075 mcg PO Q6AM 06/11/18 Modafinil [Provigil] 200 mg PO DAILY 06/11/18 Tolterodine Tartrate [Detrol LA] 4 mg PO DAILY 06/11/18 Allergies/Adverse Reactions: No Known Allergies Allergy (Unverified 11/11/11 11:18) Review of Systems ROS unobtainable: Due to endotracheal tube Physical Exam Vital Signs: Temp Pulse Resp BP Pulse Ox 97.2 F 74 14 115/63 100 06/11/18 19:49 06/11/18 16:00 06/11/18 18:04 06/11/18 18:04 06/11/18 19:19 Intake & Output 06/10/18 06/11/18 06/12/18 06:59 06:59 06:59 Intake Total 4000 2650 4162 Output Total 225 550 Balance 4000 2425 3612 Weight 55.9 kg General appearance: PRESENT: other - Sedated Head exam: PRESENT: normocephalic Ear exam: PRESENT: normal external ear exam Mouth exam: PRESENT: other - Endotracheal tube in place Respiratory exam: PRESENT: clear to auscultation fahad - Anteriorly, symmetrical. ABSENT: accessory muscle use, rales, rhonchi, wheezes Cardiovascular exam: PRESENT: RRR, +S1, +S2 GI/Abdominal exam: PRESENT: distended, hypoactive bowel sounds, soft, other - Midline incision. Small diameter tube for jejunal feedings present. 2 MI drains present as well. Rectal exam: PRESENT: deferred Gentrourinary exam: PRESENT: indwelling catheter Extremities exam: ABSENT: pedal edema Neurological exam: PRESENT: other - Sedated. ABSENT: awake Psychiatric exam: PRESENT: other - Sedated Focused psych exam: PRESENT: other - Sedated Results Laboratory Results: 06/11/18 02:43 06/11/18 02:43 06/10/18 06/10/18 06/11/18 20:00 22:17 02:43 WBC RBC Hgb Hct MCV MCH MCHC RDW Plt Count Carbonic Acid HCO3/H2CO3 Ratio ABG pH ABG pCO2 ABG pO2 ABG HCO3 ABG O2 Saturation ABG Base Excess FiO2 Sodium Potassium Chloride Carbon Dioxide Anion Gap BUN Creatinine Est GFR ( Amer) Est GFR (Non-Af Amer) Glucose Lactic Acid 4.6 H 3.5 H Calcium Urine Color LUCÍA Urine Appearance CLOUDY Urine pH 5.0 Ur Specific [place] 1.054 Urine Protein 100 H Urine Glucose (UA) 50 H Urine Ketones TRACE H Urine Blood NEGATIVE Urine Nitrite NEGATIVE Ur Leukocyte Esterase NEGATIVE Urine WBC (Auto) 7 Urine RBC (Auto) 7 06/11/18 06/11/18 06/11/18 02:43 02:43 04:55 WBC 14.2 H RBC 5.12 Hgb 15.4 Hct 47.2 H MCV 92 MCH 30.1 MCHC 32.6 RDW 14.0 Plt Count 280 Carbonic Acid 1.71 H HCO3/H2CO3 Ratio 12:1 ABG pH 7.21 L ABG pCO2 56.8 H ABG pO2 157.8 H ABG HCO3 22.1 ABG O2 Saturation 98.6 H ABG Base Excess -6.6 FiO2 40% Sodium 132.2 L Potassium 4.5 Chloride 104 Carbon Dioxide 23 Anion Gap 5 BUN 16 Creatinine 0.60 Est GFR ( Amer) > 60 Est GFR (Non-Af Amer) > 60 Glucose 167 H Lactic Acid Calcium 8.2 L Urine Color Urine Appearance Urine pH Ur Specific [place] Urine Protein Urine Glucose (UA) Urine Ketones Urine Blood Urine Nitrite Ur Leukocyte Esterase Urine WBC (Auto) Urine RBC (Auto) 06/11/18 11:52 WBC RBC Hgb Hct MCV MCH MCHC RDW Plt Count Carbonic Acid 1.18 HCO3/H2CO3 Ratio 17:1 ABG pH 7.34 L ABG pCO2 39.3 ABG pO2 213.5 H ABG HCO3 20.5 ABG O2 Saturation 99.4 H ABG Base Excess -4.9 FiO2 40% Sodium Potassium Chloride Carbon Dioxide Anion Gap BUN Creatinine Est GFR ( Amer) Est GFR (Non-Af Amer) Glucose Lactic Acid Calcium Urine Color Urine Appearance Urine pH Ur Specific [place] Urine Protein Urine Glucose (UA) Urine Ketones Urine Blood Urine Nitrite Ur Leukocyte Esterase Urine WBC (Auto) Urine RBC (Auto) Impressions: KUB X-Ray 06/10/18 18:05 IMPRESSION: NO RADIOGRAPHIC EVIDENCE FOR ACUTE ABDOMINAL DISEASE. Abdomen/Pelvis CT 06/10/18 19:07 IMPRESSION: Free intraperitoneal air consistent with rupture of a hollow viscus. Large volume of ascites. Exact site for the perforated viscus is indeterminate. Some of the free intraperitoneal air extends into the posterior mediastinum/GE junction region. Subjective wall thickening of the distal esophagus. There are 2 somewhat thick walled cystic masses associated with the stomach, possibly relating to gastric cysts versus pseudocysts. Areas of abscess not excluded . Atrophic appearance to the pancreas. Not stated previously, there is also a 3.8 mm hypodensity in the body of the pancreas which could reflect tiny cyst adenoma. Dilated fluid-filled loops of small bowel, with several small bowel loops having a thick-walled appearance. Findings may reflect reactive enteritis with ileus. Partial or incomplete obstruction not excluded. Small bibasilar pleural effusions.. TECHNICAL DOCUMENTATION: Quality ID # [id number]: Final reports with documentation of one or more dose reduction techniques (e.g., Automated exposure control, adjustment of the mA and/or kV according to patient size, use of iterative reconstruction technique) copyright 2011 [employer]- All Rights Reserved Chest X-Ray 06/11/18 15:13 IMPRESSION: New opacity at the left lung base. Likely atelectasis. SUPPORT DEVICE(S) IN EXPECTED LOCATIONS. Assessment & Plan - Diagnosis (1) Bowel perforation Is this a current diagnosis for this admission?: Yes Plan: The patient is postop day 1. She has a small caliber tube for jejunal feedings. Nasogastric tube is in place. Still with some bilious drainage. I discontinued the patient's Ancef and started vancomycin and cefepime. I will review the need for the fluconazole and discontinue it if appropriate. We will hold off initiating tube feeding until there are more active bowel sounds. It is possible that malignancy is present. Once the patient recovers from her surgery discussions can be held with the family regarding more definitive resection or not. (2) Acute respiratory failure with hypoxia Is this a current diagnosis for this admission?: Yes Plan: The patient remained intubated postoperatively. We will wean slowly and extubate when appropriate. Continue nebulizer treatments. (3) Lactic acidemia Is this a current diagnosis for this admission?: Yes Plan: She continues on IV fluids. Her serum lactic acid will be repeated in the morning. (4) Hypothyroidism Qualifiers: Hypothyroidism type: unspecified Qualified Code(s): E03.9 - Hypothyroidism, unspecified Is this a current diagnosis for this admission?: Yes Plan: The patient is normally on 75 mcg of levothyroxine orally. I will start 40 mcg by IV at this time and monitor the patient. - Time Time Spent: 50 to 70 Minutes Medications reviewed and adjusted accordingly: Yes - Plan Summary Plan Summary: Thank you for allowing me to assist in the care of this patient. The hospitalist service will continue to follow.
[2018-06-11] MEDS: DEXTROSE 5%-WATER 250 ML with NOREPINEPHRINE BITARTRATE 4 MG IV PRN ×2 (21:29)
[2018-06-12] MEDS: LEVALBUTEROL HCL NEB 0.63 MG/3 ML AMPUL NEB SCH ×4 (00:52→23:40)
[2018-06-12] MEDS: NORMAL SALINE 1000 ML 1,000 ML IV PRN (01:19)
[2018-06-12] MEDS: MORPHINE SULFATE 10 MG/ML INJ IV PRN ×2 (02:50→18:41)
[2018-06-12 04:52] LABS: MEAN CORPUSCULAR HEMOGLOBIN 31.1 pg (27.0-33.4); MEAN CORPUSCULAR HGB CONC 34.1 g/dL (32.0-36.0); MEAN CORPUSCULAR VOLUME 91 fl (80-97); PLATELET COUNT 232 10^3/uL (150-450); RED CELL DISTRIBUTION WIDTH 14.5 % (11.5-14.0); WHITE BLOOD COUNT 14.7 10^3/uL (4.0-10.5)
[2018-06-12] MEDS: FLUCONAZOLE 200 MG/NS RTU 200 MG/100 ML RTUPB IV SCH (05:05)
[2018-06-12 05:10] LABS: BLOOD UREA NITROGEN 14 mg/dL (7-20); GLUCOSE 127 mg/dL (75-110); POTASSIUM 4.1 mmol/L (3.6-5.0)
[2018-06-12 05:15] LABS: CARBON DIOXIDE 19 mmol/L (22-30); CHLORIDE 110 mmol/L (98-107); SODIUM 133.5 mmol/L (137-145)
[2018-06-12 05:19] LABS: ANION GAP 5 (5-19)
[2018-06-12 05:21] LABS: CALCIUM 6.9 mg/dL (8.4-10.2)
[2018-06-12 05:31] LABS: HEMOGLOBIN 10.6 g/dL (12.0-15.5)
[2018-06-12 05:33] LABS: ARTERIAL BLOOD BASE EXCESS -5.6 mmol/L; ARTERIAL BLOOD H2CO3 0.98 mmol/L (1.05-1.35); ARTERIAL BLOOD HCO3 18.7 mmol/L (20-24); ARTERIAL BLOOD O2 SATURATION 98.8 % (94-98); ARTERIAL BLOOD PCO2 32.5 mmHg (35-45); ARTERIAL BLOOD PH 7.38 (7.35-7.45); ARTERIAL BLOOD TOTAL CO2 19.7 mmol/L (21-25)
[2018-06-12 05:34] LABS: ABSOLUTE LYMPHOCYTES# (MANUAL) 0.7 10^3/uL (0.5-4.7); ABSOLUTE MONOCYTES # (MANUAL) 1.3 10^3/uL (0.1-1.4); ABSOLUTE NEUTROPHILS# (MANUAL) 12.6 10^3/uL (1.7-8.2); BASOPHILS % (MANUAL) 0 % (0-2); EOSINOPHILS % (MANUAL) 0 % (0-6); LYMPHOCYTES % (MANUAL) 5 % (13-45); MONOCYTES % (MANUAL) 9 % (3-13); SEGMENTED NEUTROPHILS % (MAN) 66 % (42-78); TOTAL CELLS COUNTED 100
[2018-06-12 05:35] LABS: ANISOCYTOSIS SLIGHT; BURR CELLS 2+; PLATELET COMMENT ADEQUATE; POIKILOCYTOSIS 2+; POLYCHROMASIA 1+; TOXIC GRANULATION 1+; TOXIC VACUOLATION PRESENT
[2018-06-12 05:35] LABS: ARTERIAL BLOOD FIO2 30%
[2018-06-12 05:36] LABS: BAND NEUTROPHILS % (MANUAL) 20 % (3-5)
[2018-06-12] MEDS: MIDAZOLAM HCL 50 MG/100 ML RTUINJ IV PRN (07:07)
--- NOTE | 2018-06-12 08:43 | RADIOLOGY REPORT (SQ) ---
EXAM DESCRIPTION: CHEST SINGLE VIEW COMPLETED DATE/TIME: 06/12/2018 6:27 am REASON FOR STUDY: resp failure COMPARISON: 06/11/2018 EXAM PARAMETERS: NUMBER OF VIEWS: One view TECHNIQUE: Single frontal radiograph of the chest. RADIATION DOSE: N/A LIMITATIONS: None. FINDINGS: TEMPORARY SUPPORT DEVICES:ETT in expected location. NG tube courses below the du-diaphr agm in to the stomach. Central venous access catheter tip is in expected location. LUNGS AND PLEURA: Persistent left basilar opacity. Small left effusion. No masses. No pneumothorax. MEDIASTINUM AND HILAR STRUCTURES: No masses. Contour normal. HEART AND VASCULAR STRUCTURES: Heart normal in size. normal vascularity. Aorta normal for age. BONES: No acute findings. OTHER: No other significant finding. IMPRESSION: Persistent left basilar opacity with small left effusion. SUPPORT DEVICE(S) IN EXPECTED LOCATIONS. TECHNICAL DOCUMENTATION: JOB ID: [id number] [employer]- All Rights Reserved Reading location - IP/workstation name: [email or web address]
[2018-06-12] MEDS ORDERED: FUROSEMIDE INJ/PF 40 MG/4 ML SDV IV ONE (09:59)
[2018-06-12] MEDS ORDERED: LEVOTHYROXINE SODIUM INJ/PF 0.5 MG SDV IV SCH (10:00)
--- NOTE | 2018-06-12 10:10 | PDOC PROGRESS REPORT ---
Subjective Progress Note for:: 06/12/18 Subjective:: The patient is intubated and sedated. She does not appear to be in any discomfort. Reason For Visit: PERFORATED GASTRIC ULCER Physical Exam Vital Signs: Temp Pulse Resp BP Pulse Ox 97.2 F 57 L 14 109/77 100 06/12/18 09:20 06/12/18 08:00 06/12/18 09:20 06/12/18 09:20 06/12/18 09:20 Intake & Output 06/11/18 06/12/18 06/13/18 06:59 06:59 06:59 Intake Total 2650 6237 69 Output Total 225 885 135 Balance 2425 5352 -66 Weight 55.9 kg 64.1 kg General appearance: PRESENT: no acute distress, other - Sedated and intubated Head exam: PRESENT: normocephalic, other Eye exam: PRESENT: other - Did not assess Ear exam: PRESENT: normal external ear exam Mouth exam: PRESENT: other - Endotracheal tube in place. Nasogastric tube in place. Throat exam: PRESENT: other - Endotracheal tube in place Respiratory exam: PRESENT: clear to auscultation fahad - I did not appreciate any abnormal breath sounds anteriorly but the patient does have very limited inspiratory phase., decreased breath sounds, other - Patient is not breathing above the ventilator rate. Cardiovascular exam: PRESENT: RRR, +S1, +S2 GI/Abdominal exam: PRESENT: diminished bowel sounds, soft, other - Tube for jejunal feeding in place. ABSENT: tenderness Rectal exam: PRESENT: deferred Extremities exam: PRESENT: pedal edema, other - Puffy hands Neurological exam: PRESENT: other - Sedated and intubated Psychiatric exam: PRESENT: other - Unable to assess Focused psych exam: PRESENT: other - Unable to assess Results Laboratory Results: 06/12/18 04:27 06/12/18 04:27 06/11/18 06/12/18 06/12/18 11:52 04:27 04:27 WBC RBC Hgb Hct MCV MCH MCHC RDW Plt Count Seg Neutrophils % Lymphocytes % Monocytes % Eosinophils % Basophils % Absolute Neutrophils Absolute Lymphocytes Absolute Monocytes Absolute Eosinophils Absolute Basophils Carbonic Acid 1.18 Cancelled HCO3/H2CO3 Ratio 17:1 Cancelled ABG pH 7.34 L Cancelled ABG pCO2 39.3 Cancelled ABG pO2 213.5 H Cancelled ABG HCO3 20.5 Cancelled ABG O2 Saturation 99.4 H Cancelled ABG Base Excess -4.9 Cancelled FiO2 40% Cancelled Sodium 133.5 L Potassium 4.1 Chloride 110 H Carbon Dioxide 19 L Anion Gap 5 BUN 14 Creatinine 0.43 L Est GFR ( Amer) > 60 Est GFR (Non-Af Amer) > 60 Glucose 127 H Lactic Acid Calcium 6.9 L* Magnesium 1.5 L Albumin 06/12/18 06/12/18 06/12/18 04:27 04:27 04:27 WBC 14.7 H RBC 3.40 L Hgb 10.6 L D Hct 31.0 L MCV 91 MCH 31.1 MCHC 34.1 RDW 14.5 H Plt Count 232 Seg Neutrophils % Not Reportable Lymphocytes % Not Reportable Monocytes % Not Reportable Eosinophils % Not Reportable Basophils % Not Reportable Absolute Neutrophils Not Reportable Absolute Lymphocytes Not Reportable Absolute Monocytes Not Reportable Absolute Eosinophils Not Reportable Absolute Basophils Not Reportable Carbonic Acid HCO3/H2CO3 Ratio ABG pH ABG pCO2 ABG pO2 ABG HCO3 ABG O2 Saturation ABG Base Excess FiO2 Sodium Potassium Chloride Carbon Dioxide Anion Gap BUN Creatinine Est GFR ( Amer) Est GFR (Non-Af Amer) Glucose Lactic Acid 1.0 Calcium Magnesium Albumin 1.4 L 06/12/18 05:15 WBC RBC Hgb Hct MCV MCH MCHC RDW Plt Count Seg Neutrophils % Lymphocytes % Monocytes % Eosinophils % Basophils % Absolute Neutrophils Absolute Lymphocytes Absolute Monocytes Absolute Eosinophils Absolute Basophils Carbonic Acid 0.98 L HCO3/H2CO3 Ratio 19:1 ABG pH 7.38 ABG pCO2 32.5 L ABG pO2 144.0 H ABG HCO3 18.7 L ABG O2 Saturation 98.8 H ABG Base Excess -5.6 FiO2 30% Sodium Potassium Chloride Carbon Dioxide Anion Gap BUN Creatinine Est GFR ( Amer) Est GFR (Non-Af Amer) Glucose Lactic Acid Calcium Magnesium Albumin Impressions: KUB X-Ray 06/10/18 18:05 IMPRESSION: NO RADIOGRAPHIC EVIDENCE FOR ACUTE ABDOMINAL DISEASE. Abdomen/Pelvis CT 06/10/18 19:07 IMPRESSION: Free intraperitoneal air consistent with rupture of a hollow viscus. Large volume of ascites. Exact site for the perforated viscus is indeterminate. Some of the free intraperitoneal air extends into the posterior mediastinum/GE junction region. Subjective wall thickening of the distal esophagus. There are 2 somewhat thick walled cystic masses associated with the stomach, possibly relating to gastric cysts versus pseudocysts. Areas of abscess not excluded . Atrophic appearance to the pancreas. Not stated previously, there is also a 3.8 mm hypodensity in the body of the pancreas which could reflect tiny cyst adenoma. Dilated fluid-filled loops of small bowel, with several small bowel loops having a thick-walled appearance. Findings may reflect reactive enteritis with ileus. Partial or incomplete obstruction not excluded. Small bibasilar pleural effusions.. TECHNICAL DOCUMENTATION: Quality ID # 436: Final reports with documentation of one or more dose reduction techniques (e.g., Automated exposure control, adjustment of the mA and/or kV according to patient size, use of iterative reconstruction technique) copyright 2011 [employer]- All Rights Reserved Chest X-Ray 06/12/18 06:00 IMPRESSION: Persistent left basilar opacity with small left effusion. SUPPORT DEVICE(S) IN EXPECTED LOCATIONS. Assessment & Plan - Diagnosis (1) Bowel perforation Is this a current diagnosis for this admission?: Yes Plan: With peritonitis. Continue cefepime and vancomycin for peritonitis. White blood cell count is increasing despite dual antibiotic therapy. Bowel sounds are still diminished. No tube feedings at this time. (2) Acute respiratory failure with hypoxia Is this a current diagnosis for this admission?: Yes Plan: Patient remains intubated. She is not breathing above the set ventilator rate. Maintaining oxygen saturation above 90%. Please also see pulmonology note. (3) Hypoalbuminemia Is this a current diagnosis for this admission?: Yes Plan: The patient's urine output has been low. She has not exhibited decreased renal function. She has markedly low albumin. I am going to administer 25 g of IV albumin daily with furosemide therapy. This will likely increase her urine ou tput and we can shoot for euvolemic. We will need to monitor her electrolytes as well. (4) Hypothyroidism Qualifiers: Hypothyroidism type: unspecified Qualified Code(s): E03.9 - Hypothyroidism, unspecified Is this a current diagnosis for this admission?: Yes Plan: Currently receiving levothyroxine by intravenous with dose adjusted for different administration root. (5) Anemia Qualifiers: Anemia type: unspecified type Qualified Code(s): D64.9 - Anemia, unspecified Is this a current diagnosis for this admission?: Yes Plan: The patient's laboratory studies revealed a significant drop in hemoglobin from yesterday. She has been getting aggressive IV hydration and this certainly could be mostly hemodilution. Nursing reports that there are no areas of acute bleeding that have been identified. We will continue to monitor her hemoglobin and transfuse when clinically indicated. (6) Hypomagnesemia Is this a current diagnosis for this admission?: Yes Plan: Serum magnesium is slightly below the lower limit of normal. I will administer 2 g of magnesium sulfate and continue to monitor serum magnesium level. (7) Lactic acidemia Is this a current diagnosis for this admission?: Yes Plan: Resolved. Serum lactic acid is now normal. - Time Time Spent with patient: 35 or more minutes Medications reviewed and adjusted accordingly: Yes - Plan Summary Plan Summary: I did discuss the case with Dr. Pena who is covering the surgical service today.
[2018-06-12] MEDS: PANTOPRAZOLE SODIUM 40 MG VIAL IV SCH ×2 (11:20→23:07)
[2018-06-12] MEDS: ALBUMIN HUMAN 12.5 GM/50 ML RTUINJ IV SCH ×2 (11:20→13:13)
[2018-06-12] MEDS: LEVOTHYROXINE SODIUM INJ/PF 0.1 MG SDV IV SCH (11:20)
[2018-06-12] MEDS ORDERED: MAGNESIUM SULFATE/D5W 1 GM/100 ML RTUPB IV ONE (13:30)
[2018-06-12] MEDS ORDERED: FUROSEMIDE INJ/PF 40 MG/4 ML SDV ONE (14:09)
[2018-06-12] MEDS: DEXTROSE 5%-WATER 250 ML with NOREPINEPHRINE BITARTRATE 4 MG IV PRN ×2 (14:11)
[2018-06-12] MEDS: VANCOMYCIN HCL 1,000 MG in DEXTROSE 5%-WATER 250 ML IV SCH (17:00)
[2018-06-12] MEDS: CEFEPIME 1 GM/D5W RTU 1 GM/50 ML RTUPB IV SCH (17:00)
[2018-06-12] MEDS ORDERED: MAGNESIUM SULFATE/D5W 1 GM/100 ML RTUPB IV PRN ×2 (17:53→20:47)
[2018-06-13] MEDS: MORPHINE SULFATE 10 MG/ML INJ IV PRN ×2 (03:26→09:09)
[2018-06-13 05:11] LABS: ARTERIAL BLOOD BASE EXCESS -2.1 mmol/L; ARTERIAL BLOOD H2CO3 0.99 mmol/L (1.05-1.35); ARTERIAL BLOOD HCO3 21.5 mmol/L (20-24); ARTERIAL BLOOD O2 SATURATION 97.7 % (94-98); ARTERIAL BLOOD PCO2 32.9 mmHg (35-45); ARTERIAL BLOOD PH 7.43 (7.35-7.45); ARTERIAL BLOOD PO2 97.6 mmHg (80-100); ARTERIAL BLOOD TOTAL CO2 22.5 mmol/L (21-25)
[2018-06-13 05:12] LABS: HEMATOCRIT 30.9 % (36.0-47.0); HEMOGLOBIN 10.5 g/dL (12.0-15.5); MEAN CORPUSCULAR HEMOGLOBIN 30.9 pg (27.0-33.4); MEAN CORPUSCULAR HGB CONC 34.1 g/dL (32.0-36.0); MEAN CORPUSCULAR VOLUME 91 fl (80-97); PLATELET COUNT 207 10^3/uL (150-450); RED BLOOD COUNT 3.42 10^6/uL (3.72-5.28); RED CELL DISTRIBUTION WIDTH 14.3 % (11.5-14.0); WHITE BLOOD COUNT 14.1 10^3/uL (4.0-10.5)
[2018-06-13 05:12] LABS: ARTERIAL BLOOD FIO2 25%
[2018-06-13 05:34] LABS: ALANINE AMINOTRANSFERASE 25 U/L (9-52); ALBUMIN 1.7 g/dL (3.5-5.0); ALKALINE PHOSPHATASE 34 U/L (38-126); ASPARTATE AMINO TRANSFERASE 17 U/L (14-36); BILIRUBIN,DIRECT 0.3 mg/dL (0.0-0.4); BILIRUBIN,TOTAL 0.3 mg/dL (0.2-1.3); BLOOD UREA NITROGEN 12 mg/dL (7-20); CALCIUM 7.6 mg/dL (8.4-10.2); GLUCOSE 100 mg/dL (75-110); POTASSIUM 3.5 mmol/L (3.6-5.0); TOTAL PROTEIN 3.6 g/dL (6.3-8.2)
[2018-06-13 05:36] LABS: ABSOLUTE LYMPHOCYTES# (MANUAL) 0.7 10^3/uL (0.5-4.7); ABSOLUTE MONOCYTES # (MANUAL) 0.4 10^3/uL (0.1-1.4); ABSOLUTE NEUTROPHILS# (MANUAL) 12.7 10^3/uL (1.7-8.2); BASOPHILS % (MANUAL) 0 % (0-2); EOSINOPHILS % (MANUAL) 2 % (0-6); LYMPHOCYTES % (MANUAL) 5 % (13-45); MONOCYTES % (MANUAL) 3 % (3-13); NUCLEATED RED BLOOD CELLS 1 /100 WBC (0); SEGMENTED NEUTROPHILS % (MAN) 90 % (42-78); TOTAL CELLS COUNTED 100
[2018-06-13 05:39] LABS: BURR CELLS 1+; CARBON DIOXIDE 25 mmol/L (22-30); CHLORIDE 107 mmol/L (98-107); OVALOCYTES 2+; PLATELET COMMENT ADEQUATE; POIKILOCYTOSIS 2+; SODIUM 135.8 mmol/L (137-145); TEAR DROP CELLS SLIGHT; TOXIC GRANULATION 1+
[2018-06-13 05:43] LABS: ANION GAP 4 (5-19)
[2018-06-13] MEDS: DEXTROSE 5%-WATER 250 ML with NOREPINEPHRINE BITARTRATE 4 MG IV PRN ×4 (06:02→21:57)
--- NOTE | 2018-06-13 06:33 | RADIOLOGY REPORT (SQ) ---
EXAM DESCRIPTION: X-ray single view chest. CLINICAL HISTORY: 87 years Female, follow-up left basilar opacity, possible pneumonia COMPARISON: 06/12/2018 and 06/11/2018 TECHNIQUE: Single portable view of the chest performed on 06/13/2018 at 6:16 AM FINDINGS: The lungs are well expanded. There is ongoing volume loss in the left lung base which may be due to pneumonia. Underlying atelectasis and/or pleural fluid are not excluded. The right lung is grossly clear. There is no evidence of a pneumothorax. The cardiac silhouette is stable and average in size considering the portable technique. The mediastinal contours are normal. No acute osseous abnormality is identified. No focal soft tissue abnormalities are seen. Lines and tubes: The endotracheal tube, feeding tube and left subclavian central venous catheter are grossly stable. IMPRESSION: Overall, no significant change when compared to the most recent study. There is persistent volume loss in the left lung base. The life support lines and tubes are grossly stable.
--- NOTE | 2018-06-13 07:01 | PDOC PROGRESS REPORT ---
Subjective Progress Note for:: 06/12/18 Subjective:: This note is a late entry for visit on 06/12/18 Reason For Visit: PERFORATED GASTRIC ULCER Physical Exam Vital Signs: Intake & Output 06/11/18 06/12/18 06:59 06:59 Intake Total 2650 6237 Output Total 225 885 Balance 2425 5352 Weight 55.9 kg 64.1 kg Results Laboratory Results: 06/10/18 22:17 Barrett Catheter Urine Culture - Final NO GROWTH 2 DAYS Impressions: KUB X-Ray 06/10/18 18:05 IMPRESSION: NO RADIOGRAPHIC EVIDENCE FOR ACUTE ABDOMINAL DISEASE. Abdomen/Pelvis CT 06/10/18 19:07 IMPRESSION: Free intraperitoneal air consistent with rupture of a hollow viscus. Large volume of ascites. Exact site for the perforated viscus is indeterminate. Some of the free intraperitoneal air extends into the posterior mediastinum/GE junction region. Subjective wall thickening of the distal esophagus. There are 2 somewhat thick walled cystic masses associated with the stomach, possibly relating to gastric cysts versus pseudocysts. Areas of abscess not excluded . Atrophic appearance to the pancreas. Not stated previously, there is also a 3.8 mm hypodensity in the body of the pancreas which could reflect tiny cyst adenoma. Dilated fluid-filled loops of small bowel, with several small bowel loops having a thick-walled appearance. Findings may reflect reactive enteritis with ileus. Partial or incomplete obstruction not excluded. Small bibasilar pleural effusions.. TECHNICAL DOCUMENTATION: Quality ID # 436: Final reports with documentation of one or more dose reduction techniques (e.g., Automated exposure control, adjustment of the mA and/or kV according to patient size, use of iterative reconstruction technique) copyright 2011 [employer]- All Rights Reserved Assessment & Plan - Diagnosis (1) Gastric perforation Is this a current diagnosis for this admission?: Yes (2) Hypotension Qualifiers: Hypotension type: other hypotension type Qualified Code(s): I95.89 - Other hypotension Is this a current diagnosis for this admission?: Yes (3) Severe sepsis Is this a current diagnosis for this admission?: Yes (4) Acute respiratory failure with hypoxia Is this a current diagnosis for this admission?: Yes - Plan Summary Plan Summary: This is an 87-year-old female with a perforated gastric ulcer of unknown origin. The patient underwent surgery 2 days ago. She is still requiring maximal ventilatory support as well as vasopressors. I have had a long discussion with the family regarding her care. I believe the patient's overall prognosis is poor due to her advanced age, medical comorbidities, and severity of illness. The patient's family is aware of the patient's living will. They are going to review the documents and make appropriate decisions based on the patient's wishes. Continue supportive care for now. Medicine following.
[2018-06-13] MEDS ORDERED: FUROSEMIDE INJ/PF 40 MG/4 ML SDV IV ONE (08:09)
[2018-06-13] MEDS: LEVALBUTEROL HCL NEB 0.63 MG/3 ML AMPUL NEB SCH ×2 (08:47→15:47)
[2018-06-13] MEDS: PANTOPRAZOLE SODIUM 40 MG VIAL IV SCH ×2 (09:09→21:58)
[2018-06-13] MEDS: ALBUMIN HUMAN 12.5 GM/50 ML RTUINJ IV SCH ×2 (09:10→10:22)
[2018-06-13] MEDS: LEVOTHYROXINE SODIUM INJ/PF 0.1 MG SDV IV SCH (09:10)
--- NOTE | 2018-06-13 09:34 | PDOC PROGRESS REPORT ---
Subjective Progress Note for:: 06/13/18 Subjective:: The patient remains intubated and sedated. She does not appear to be in any discomfort. Reason For Visit: PERFORATED GASTRIC ULCER Physical Exam Vital Signs: Temp Pulse Resp BP Pulse Ox 99.0 F 66 14 96/52 L 100 06/13/18 06:05 06/13/18 08:47 06/13/18 08:47 06/13/18 06:05 06/13/18 08:47 Intake & Output 06/12/18 06/13/18 06/14/18 06:59 06:59 06:59 Intake Total 6237 1760 Output Total 885 5545 Balance 5352 -1685 Weight 64.1 kg 62.9 kg General appearance: PRESENT: no acute distress, other - Intubated and sedated Head exam: PRESENT: normocephalic Eye exam: PRESENT: other - Did not assess Ear exam: PRESENT: normal external ear exam Mouth exam: PRESENT: other - Endotracheal tube in place Teeth exam: PRESENT: other - Did not assess Throat exam: PRESENT: other - Did not assess Neck exam: ABSENT: carotid bruit, JVD Respiratory exam: PRESENT: rhonchi - On the right. Faint on the left. Decreased inspiratory phase., symmetrical, unlabored. ABSENT: accessory muscle use, rales, stridor, tachypnea Cardiovascular exam: PRESENT: RRR, +S1, +S2 GI/Abdominal exam: PRESENT: diminished bowel sounds, soft, other - Dressing over midline incision. Small bore jejunostomy tube present.. ABSENT: distended Gentrourinary exam: PRESENT: indwelling catheter Extremities exam: PRESENT: pedal edema Neurological exam: ABSENT: awake Psychiatric exam: ABSENT: agitated Focused psych exam: ABSENT: restlessness Skin exam: PRESENT: dry, warm Results Laboratory Results: 06/13/18 04:35 06/13/18 04:35 06/13/18 06/13/18 06/13/18 04:35 04:35 04:44 WBC 14.1 H RBC 3.42 L Hgb 10.5 L Hct 30.9 L MCV 91 MCH 30.9 MCHC 34.1 RDW 14.3 H Plt Count 207 Seg Neutrophils % Not Reportable Lymphocytes % Not Reportable Monocytes % Not Reportable Eosinophils % Not Reportable Basophils % Not Reportable Absolute Neutrophils Not Reportable Absolute Lymphocytes Not Reportable Absolute Monocytes Not Reportable Absolute Eosinophils Not Reportable Absolute Basophils Not Reportable Carbonic Acid 0.99 L HCO3/H2CO3 Ratio 21:1 ABG pH 7.43 ABG pCO2 32.9 L ABG pO2 97.6 ABG HCO3 21.5 ABG O2 Saturation 97.7 ABG Base Excess -2.1 FiO2 25% Sodium 135.8 L Potassium 3.5 L Chloride 107 Carbon Dioxide 25 Anion Gap 4 L BUN 12 Creatinine 0.58 Est GFR ( Amer) > 60 Est GFR (Non-Af Amer) > 60 Glucose 100 Calcium 7.6 L Magnesium 1.9 Total Bilirubin 0.3 AST 17 ALT 25 Alkaline Phosphatase 34 L Total Protein 3.6 L Albumin 1.7 L 06/10/18 22:17 Barrett Catheter Urine Culture - Final NO GROWTH 2 DAYS Impressions: KUB X-Ray 06/10/18 18:05 IMPRESSION: NO RADIOGRAPHIC EVIDENCE FOR ACUTE ABDOMINAL DISEASE. Abdomen/Pelvis CT 06/10/18 19:07 IMPRESSION: Free intraperitoneal air consistent with rupture of a hollow viscus. Large volume of ascites. Exact site for the perforated viscus is indeterminate. Some of the free intraperitoneal air extends into the posterior mediastinum/GE junction region. Subjective wall thickening of the distal esophagus. There are 2 somewhat thick walled cystic masses associated with the stomach, possibly relating to gastric cysts versus pseudocysts. Areas of abscess not excluded . Atrophic appearance to the pancreas. Not stated previously, there is also a 3.8 mm hypodensity in the body of the pancreas which could reflect tiny cyst adenoma. Dilated fluid-filled loops of small bowel, with several small bowel loops having a thick-walled appearance. Findings may reflect reactive enteritis with ileus. Partial or incomplete obstruction not excluded. Small bibasilar pleural effusions.. TECHNICAL DOCUMENTATION: Quality ID # 436: Final reports with documentation of one or more dose reduction techniques (e.g., Automated exposure control, adjustment of the mA and/or kV according to patient size, use of iterative reconstruction technique) copyright 2011 [employer]- All Rights Reserved Chest X-Ray 06/13/18 06:00 IMPRESSION: Overall, no significant change when compared to the most recent study. There is persistent volume loss in the left lung base. The life support lines and tubes are grossly stable. Assessment & Plan - Diagnosis (1) Bowel perforation Is this a current diagnosis for this admission?: Yes Plan: Status post laparotomy. Please see surgical list note. Did not he initiate tube feedings yet. (2) Acute respiratory failure with hypoxia Is this a current diagnosis for this admission?: Yes Plan: Remains intubated. Not breathing above the set ventilator rate. Maintaining good oxygenation on current FiO2. Still with rhonchi on the right. (3) Hypoalbuminemia Is this a current diagnosis for this admission?: Yes Plan: Infusing albumin daily to help with diuresis. Serum albumin pre-infusion was only 1.4 which is a poor prognostic indicator. (4) Hypothyroidism Qualifiers: Hypothyroidism type: unspecified Qualified Code(s): E03.9 - Hypothyroidism, unspecified Is this a current diagnosis for this admission?: Yes Plan: Continuing dose of levothyroxine. (5) Anemia Qualifiers: Anemia type: unspecified type Qualified Code(s): D64.9 - Anemia, unspecified Is this a current diagnosis for this admission?: Yes Plan: Stable with hemoglobin remaining just above 10.0. (6) Hypomagnesemia Is this a current diagnosis for this admission?: Yes Plan: Supplemented and now serum magnesium is normal. (7) Lactic acidemia Is this a current diagnosis for this admission?: Yes Plan: Resolved. - Time Time Spent with patient: 25-34 minutes Medications reviewed and adjusted accordingly: Yes - Plan Summary Plan Summary: Dr. Pena did discuss prognosis with the family yesterday. I believe they will discuss the patient's current condition and prognosis amongst themselves. They will inform us if they wish to change his status to a comfort measures only plan. If that is the case then terminal extubation with aggressive comfort measures will be instituted.
[2018-06-13] MEDS ORDERED: POTASSI CL 20 MEQ/50 ML RIDER 20 MEQ/50 ML RTUPB IV ONE (10:15)
[2018-06-13] MEDS ORDERED: FUROSEMIDE INJ/PF 40 MG/4 ML SDV ONE (12:36)
[2018-06-13] MEDS: VANCOMYCIN HCL 1,000 MG in DEXTROSE 5%-WATER 250 ML IV SCH (17:00)
--- NOTE | 2018-06-13 17:00 | PDOC PROGRESS REPORT ---
Subjective Reason For Visit: PERFORATED GASTRIC ULCER Physical Exam Vital Signs: Temp Pulse Resp BP Pulse Ox 100.2 F 89 14 107/56 L 100 06/13/18 15:50 06/13/18 15:48 06/13/18 15:50 06/13/18 15:50 06/13/18 15:50 Intake & Output 06/12/18 06/13/18 06/14/18 06:59 06:59 06:59 Intake Total 6237 1760 54 Output Total 885 3445 1000 Balance 2843 -3505 -231 Weight 64.1 kg 62.9 kg Results Laboratory Results: 06/13/18 04:35 06/13/18 04:35 06/13/18 06/13/18 06/13/18 04:35 04:35 04:44 WBC 14.1 H RBC 3.42 L Hgb 10.5 L Hct 30.9 L MCV 91 MCH 30.9 MCHC 34.1 RDW 14.3 H Plt Count 207 Seg Neutrophils % Not Reportable Lymphocytes % Not Reportable Monocytes % Not Reportable Eosinophils % Not Reportable Basophils % Not Reportable Absolute Neutrophils Not Reportable Absolute Lymphocytes Not Reportable Absolute Monocytes Not Reportable Absolute Eosinophils Not Reportable Absolute Basophils Not Reportable Carbonic Acid 0.99 L HCO3/H2CO3 Ratio 21:1 ABG pH 7.43 ABG pCO2 32.9 L ABG pO2 97.6 ABG HCO3 21.5 ABG O2 Saturation 97.7 ABG Base Excess -2.1 FiO2 25% Sodium 135.8 L Potassium 3.5 L Chloride 107 Carbon Dioxide 25 Anion Gap 4 L BUN 12 Creatinine 0.58 Est GFR ( Amer) > 60 Est GFR (Non-Af Amer) > 60 Glucose 100 Calcium 7.6 L Magnesium 1.9 Total Bilirubin 0.3 AST 17 ALT 25 Alkaline Phosphatase 34 L Total Protein 3.6 L Albumin 1.7 L Impressions: KUB X-Ray 06/10/18 18:05 IMPRESSION: NO RADIOGRAPHIC EVIDENCE FOR ACUTE ABDOMINAL DISEASE. Abdomen/Pelvis CT 06/10/18 19:07 IMPRESSION: Free intraperitoneal air consistent with rupture of a hollow viscus. Large volume of ascites. Exact site for the perforated viscus is indeterminate. Some of the free intraperitoneal air extends into the posterior mediastinum/GE junction region. Subjective wall thickening of the distal esophagus. There are 2 somewhat thick walled cystic masses associated with the stomach, possibly relating to gastric cysts versus pseudocysts. Areas of abscess not excluded . Atrophic appearance to the pancreas. Not stated previously, there is also a 3.8 mm hypodensity in the body of the pancreas which could reflect tiny cyst adenoma. Dilated fluid-filled loops of small bowel, with several small bowel loops having a thick-walled appearance. Findings may reflect reactive enteritis with ileus. Partial or incomplete obstruction not excluded. Small bibasilar pleural effusions.. TECHNICAL DOCUMENTATION: Quality ID # 436: Final reports with documentation of one or more dose reduction techniques (e.g., Automated exposure control, adjustment of the mA and/or kV according to patient size, use of iterative reconstruction technique) copyright 2011 [employer]- All Rights Reserved Chest X-Ray 06/13/18 06:00 IMPRESSION: Overall, no significant change when compared to the most recent study. There is persistent volume loss in the left lung base. The life support lines and tubes are grossly stable. Assessment & Plan - Diagnosis (1) Gastric perforation Is this a current diagnosis for this admission?: Yes (2) Hypotension Qualifiers: Hypotension type: other hypotension type Qualified Code(s): I95.89 - Other hypotension Is this a current diagnosis for this admission?: Yes (3) Severe sepsis Is this a current diagnosis for this admission?: Yes (4) Acute respiratory failure with hypoxia Is this a current diagnosis for this admission?: Yes - Plan Summary Plan Summary: This is an 87-year-old female with a perforated gastric ulcer of unknown origin. An attempt was made to reduce and discontinue her vasopressors. This was unsuccessful. She is still requiring maximal ventilatory support as well as vasopressors. I believe the patient's overall prognosis is poor due to her advanced age, medical comorbidities, and severity of illness. Continue supportive care for now. Medicine following.
[2018-06-13] MEDS: CEFEPIME 1 GM/D5W RTU 1 GM/50 ML RTUPB IV SCH (17:45)
[2018-06-13 18:29] LABS: ALBUMIN 2.1 g/dL (3.5-5.0); BLOOD UREA NITROGEN 11 mg/dL (7-20); GLUCOSE 110 mg/dL (75-110); PHOSPHORUS 1.8 mg/dL (2.5-4.5); POTASSIUM 3.4 mmol/L (3.6-5.0)
[2018-06-13 18:34] LABS: CARBON DIOXIDE 28 mmol/L (22-30); CHLORIDE 105 mmol/L (98-107); SODIUM 134.9 mmol/L (137-145)
[2018-06-13 18:40] LABS: ANION GAP 2 (5-19)
[2018-06-14] MEDS: LEVALBUTEROL HCL NEB 0.63 MG/3 ML AMPUL NEB SCH ×3 (00:28→15:47)
[2018-06-14 06:29] LABS: ARTERIAL BLOOD BASE EXCESS 2.8 mmol/L; ARTERIAL BLOOD H2CO3 1.05 mmol/L (1.05-1.35); ARTERIAL BLOOD HCO3 25.9 mmol/L (20-24); ARTERIAL BLOOD O2 SATURATION 95.6 % (94-98); ARTERIAL BLOOD PCO2 34.8 mmHg (35-45); ARTERIAL BLOOD PH 7.49 (7.35-7.45); ARTERIAL BLOOD PO2 71.3 mmHg (80-100)
[2018-06-14 06:30] LABS: HEMATOCRIT 34.2 % (36.0-47.0); HEMOGLOBIN 11.6 g/dL (12.0-15.5); MEAN CORPUSCULAR HEMOGLOBIN 30.5 pg (27.0-33.4); MEAN CORPUSCULAR HGB CONC 33.9 g/dL (32.0-36.0); MEAN CORPUSCULAR VOLUME 90 fl (80-97); PLATELET COUNT 185 10^3/uL (150-450); RED CELL DISTRIBUTION WIDTH 14.2 % (11.5-14.0); WHITE BLOOD COUNT 17.5 10^3/uL (4.0-10.5)
[2018-06-14 06:32] LABS: ARTERIAL BLOOD FIO2 25%
[2018-06-14] MEDS: MIDAZOLAM HCL 50 MG/100 ML RTUINJ IV PRN (06:35)
[2018-06-14 06:46] LABS: ALBUMIN 1.9 g/dL (3.5-5.0); BLOOD UREA NITROGEN 12 mg/dL (7-20); CALCIUM 7.8 mg/dL (8.4-10.2); GLUCOSE 103 mg/dL (75-110); POTASSIUM 3.5 mmol/L (3.6-5.0)
[2018-06-14 06:51] LABS: CARBON DIOXIDE 30 mmol/L (22-30); CHLORIDE 101 mmol/L (98-107); SODIUM 133.2 mmol/L (137-145)
[2018-06-14 06:52] LABS: BASOPHILS % (MANUAL) 0 % (0-2); EOSINOPHILS % (MANUAL) 0 % (0-6)
[2018-06-14 06:53] LABS: ABSOLUTE LYMPHOCYTES# (MANUAL) 1.9 10^3/uL (0.5-4.7); ABSOLUTE MONOCYTES # (MANUAL) 0.9 10^3/uL (0.1-1.4); ABSOLUTE NEUTROPHILS# (MANUAL) 14.7 10^3/uL (1.7-8.2); ANION GAP 2 (5-19); LYMPHOCYTES % (MANUAL) 10 % (13-45); MONOCYTES % (MANUAL) 5 % (3-13); SEGMENTED NEUTROPHILS % (MAN) 84 % (42-78); TOTAL CELLS COUNTED 100
[2018-06-14 06:56] LABS: OVALOCYTES 1+; PLATELET COMMENT ADEQUATE; POIKILOCYTOSIS 1+; SCHISTOCYTES SLIGHT; TOXIC GRANULATION 1+; TOXIC VACUOLATION PRESENT
--- NOTE | 2018-06-14 08:42 | RADIOLOGY REPORT (SQ) ---
EXAM DESCRIPTION: CHEST SINGLE VIEW COMPLETED DATE/TIME: 06/14/2018 6:47 am REASON FOR STUDY: resp failure COMPARISON: Chest films 06/11/2018, 06/12/2018, 06/13/2018 EXAM PARAMETERS: NUMBER OF VIEWS: One view. TECHNIQUE: Single frontal radiographic view of the chest acquired. RADIATION DOSE: NA LIMITATIONS: None. FINDINGS: LUNGS AND PLEURA: New numerous lung rim tumor using elevation atelectasis versus pneumonia nearing Lungs are hyperinflated and hyperlucent from obstructive lung disease with increasing interstitial ma rkings in both means from lung chronic pulmonary numerous in No pneumothorax. No pleural effusion. MEDIASTINUM AND HILAR STRUCTURES: No masses. Contour normal. HEART AND VASCULAR STRUCTURES: Heart normal in size. Normal vasculature. BONES: No acute findings. HARDWARE: Endotracheal tube tip 6 cm above the ashley. Nasogastric tube tip and side port in the sto mach. Left subclavian triple lumen catheter tip in the superior vena cava. Left upper quadrant surg ical drains are present. OTHER: No other significant finding. IMPRESSION: Trace left basilar airspace disease. Tubes and lines in good positioning. TECHNICAL DOCUMENTATION: JOB ID: [id number] [employer]- All Rights Reserved Reading location - IP/workstation name: [id number] BEDS AT [facility]
--- NOTE | 2018-06-14 09:40 | PDOC PROGRESS REPORT ---
Subjective Progress Note for:: 06/14/18 Reason For Visit: The patient remains in the ICU, on levo fed, poor urine output. Marginal hemodynamic status. Remains on the ventilator. Physical Exam Vital Signs: Temp Pulse Resp BP Pulse Ox 99.7 F 80 14 117/78 100 06/14/18 08:00 06/14/18 07:55 06/14/18 07:55 06/14/18 06:36 06/14/18 07:55 Intake & Output 06/13/18 06/14/18 06/15/18 06:59 06:59 06:59 Intake Total 2060 293 Output Total 3445 2335 125 Balance -1385 -2 -125 Weight 62.9 kg 59.3 kg General appearance: PRESENT: other - Intubated, sedated, on ventilator GI/Abdominal exam: PRESENT: other - Jejunostomy tube flushed with 10 cc of normal saline recapped; left mid abdominal wall drains x2 with serous drainage. Results Laboratory Results: 06/14/18 06:08 06/14/18 06:08 06/13/18 06/14/18 06/14/18 18:00 06:08 06:08 WBC RBC Hgb Hct MCV MCH MCHC RDW Plt Count Seg Neutrophils % Lymphocytes % Monocytes % Eosinophils % Basophils % Absolute Neutrophils Absolute Lymphocytes Absolute Monocytes Absolute Eosinophils Absolute Basophils Carbonic Acid 1.05 HCO3/H2CO3 Ratio 24:1 ABG pH 7.49 H ABG pCO2 34.8 L ABG pO2 71.3 L ABG HCO3 25.9 H ABG O2 Saturation 95.6 ABG Base Excess 2.8 FiO2 25% Sodium 134.9 L Cancelled Potassium 3.4 L Cancelled Chloride 105 Cancelled Carbon Dioxide 28 Cancelled Anion Gap 2 L Cancelled BUN 11 Cancelled Creatinine 0.57 Cancelled Est GFR ( Amer) > 60 Cancelled Est GFR (Non-Af Amer) > 60 Cancelled Glucose 110 Cancelled Calcium 8.0 L Cancelled Phosphorus 1.8 L Magnesium 1.9 Albumin 2.1 L 06/14/18 06/14/18 06:08 06:08 WBC 17.5 H RBC 3.80 Hgb 11.6 L Hct 34.2 L MCV 90 MCH 30.5 MCHC 33.9 RDW 14.2 H Plt Count 185 Seg Neutrophils % Not Reportable Lymphocytes % Not Reportable Monocytes % Not Reportable Eosinophils % Not Reportable Basophils % Not Reportable Absolute Neutrophils Not Reportable Absolute Lymphocytes Not Reportable Absolute Monocytes Not Reportable Absolute Eosinophils Not Reportable Absolute Basophils Not Reportable Carbonic Acid HCO3/H2CO3 Ratio ABG pH ABG pCO2 ABG pO2 ABG HCO3 ABG O2 Saturation ABG Base Excess FiO2 Sodium 133.2 L Potassium 3.5 L Chloride 101 Carbon Dioxide 30 Anion Gap 2 L BUN 12 Creatinine 0.44 L Est GFR ( Amer) > 60 Est GFR (Non-Af Amer) > 60 Glucose 103 Calcium 7.8 L Phosphorus 2.0 L Magnesium Albumin 1.9 L Impressions: KUB X-Ray 06/10/18 18:05 IMPRESSION: NO RADIOGRAPHIC EVIDENCE FOR ACUTE ABDOMINAL DISEASE. Abdomen/Pelvis CT 06/10/18 19:07 IMPRESSION: Free intraperitoneal air consistent with rupture of a hollow viscus. Large volume of ascites. Exact site for the perforated viscus is indeterminate. Some of the free intraperitoneal air extends into the posterior mediastinum/GE junction region. Subjective wall thickening of the distal esophagus. There are 2 somewhat thick walled cystic masses associated with the stomach, possibly relating to gastric cysts versus pseudocysts. Areas of abscess not excluded . Atrophic appearance to the pancreas. Not stated previously, there is also a 3.8 mm hypodensity in the body of the pancreas which could reflect tiny cyst adenoma. Dilated fluid-filled loops of small bowel, with several small bowel loops having a thick-walled appearance. Findings may reflect reactive enteritis with ileus. Partial or incomplete obstruction not excluded. Small bibasilar pleural effusions.. TECHNICAL DOCUMENTATION: Quality ID # 436: Final reports with documentation of one or more dose reduction techniques (e.g., Automated exposure control, adjustment of the mA and/or kV according to patient size, use of iterative reconstruction technique) copyright 2011 [employer]- All Rights Reserved Chest X-Ray 06/14/18 06:00 IMPRESSION: Trace left basilar airspace disease. Tubes and lines in good positioning. Assessment & Plan - Diagnosis (1) Gastric perforation Is this a current diagnosis for this admission?: Yes Plan: Impression: Status post exploratory laparotomy, gastric perforation repair in 87-year-old white female remaining in the ICU on pressors on ventilatory support, with persisting leukocytosis ReCommendations: 1. Given patient's advanced age, magnitude of acute septic episode, postoperative day 4 and still on full vent, patient's prognosis is extremely poor. Therefore level of advanced directives including DNR status need to be discussed with this can or appropriate healthcare power of erisa attorney. Apparently efforts are being made to contact such individuals. 2. We will discuss the above with primary care team.
--- NOTE | 2018-06-14 10:55 | PDOC PROGRESS REPORT ---
Subjective Progress Note for:: 06/14/18 Subjective:: The patient is resting on the ventilator. Responds to painful stimulus but not verbal stimulus. Reason For Visit: PERFORATED GASTRIC ULCER Physical Exam Vital Signs: Temp Pulse Resp BP Pulse Ox 99.7 F 80 14 117/78 100 06/14/18 08:00 06/14/18 07:55 06/14/18 07:55 06/14/18 06:36 06/14/18 07:55 Intake & Output 06/13/18 06/14/18 06/15/18 06:59 06:59 06:59 Intake Total 2060 293 Output Total 3445 2335 125 Balance -1385 -2042 -125 Weight 62.9 kg 59.3 kg General appearance: PRESENT: no acute distress, other - Intubated and sedated Head exam: PRESENT: normocephalic Eye exam: PRESENT: conjunctiva pale. ABSENT: scleral icterus Ear exam: PRESENT: normal external ear exam Mouth exam: PRESENT: other - Endotracheal tube in place Teeth exam: PRESENT: other - Did not assess Throat exam: PRESENT: other - Unable to assess Neck exam: ABSENT: carotid bruit, lymphadenopathy Respiratory exam: PRESENT: crackles - On the right, decreased breath sounds - On the left base, unlabored - Respiratory rate determined by ventilator. ABSENT: accessory muscle use, rales, wheezes Cardiovascular exam: PRESENT: RRR, +S1, +S2 GI/Abdominal exam: PRESENT: diminished bowel sounds, soft, tenderness - Near the incision Gentrourinary exam: PRESENT: indwelling catheter Extremities exam: PRESENT: other - Bilateral upper extremity swelling. ABSENT: calf tenderness Neurological exam: ABSENT: awake Psychiatric exam: ABSENT: agitated Focused psych exam: ABSENT: restlessness Skin exam: PRESENT: pallor Results Laboratory Results: 06/14/18 06:08 06/14/18 06:08 06/13/18 06/14/18 06/14/18 18:00 06:08 06:08 WBC RBC Hgb Hct MCV MCH MCHC RDW Plt Count Seg Neutrophils % Lymphocytes % Monocytes % Eosinophils % Basophils % Absolute Neutrophils Absolute Lymphocytes Absolute Monocytes Absolute Eosinophils Absolute Basophils Carbonic Acid 1.05 HCO3/H2CO3 Ratio 24:1 ABG pH 7.49 H ABG pCO2 34.8 L ABG pO2 71.3 L ABG HCO3 25.9 H ABG O2 Saturation 95.6 ABG Base Excess 2.8 FiO2 25% Sodium 134.9 L Cancelled Potassium 3.4 L Cancelled Chloride 105 Cancelled Carbon Dioxide 28 Cancelled Anion Gap 2 L Cancelled BUN 11 Cancelled Creatinine 0.57 Cancelled Est GFR ( Amer) > 60 Cancelled Est GFR (Non-Af Amer) > 60 Cancelled Glucose 110 Cancelled Calcium 8.0 L Cancelled Phosphorus 1.8 L Magnesium 1.9 Albumin 2.1 L 06/14/18 06/14/18 06:08 06:08 WBC 17.5 H RBC 3.80 Hgb 11.6 L Hct 34.2 L MCV 90 MCH 30.5 MCHC 33.9 RDW 14.2 H Plt Count 185 Seg Neutrophils % Not Reportable Lymphocytes % Not Reportable Monocytes % Not Reportable Eosinophils % Not Reportable Basophils % Not Reportable Absolute Neutrophils Not Reportable Absolute Lymphocytes Not Reportable Absolute Monocytes Not Reportable Absolute Eosinophils Not Reportable Absolute Basophils Not Reportable Carbonic Acid HCO3/H2CO3 Ratio ABG pH ABG pCO2 ABG pO2 ABG HCO3 ABG O2 Saturation ABG Base Excess FiO2 Sodium 133.2 L Potassium 3.5 L Chloride 101 Carbon Dioxide 30 Anion Gap 2 L BUN 12 Creatinine 0.44 L Est GFR ( Amer) > 60 Est GFR (Non-Af Amer) > 60 Glucose 103 Calcium 7.8 L Phosphorus 2.0 L Magnesium Albumin 1.9 L Impressions: KUB X-Ray 06/10/18 18:05 IMPRESSION: NO RADIOGRAPHIC EVIDENCE FOR ACUTE ABDOMINAL DISEASE. Abdomen/Pelvis CT 06/10/18 19:07 IMPRESSION: Free intraperitoneal air consistent with rupture of a hollow viscus. Large volume of ascites. Exact site for the perforated viscus is indeterminate. Some of the free intraperitoneal air extends into the posterior mediastinum/GE junction region. Subjective wall thickening of the distal esophagus. There are 2 somewhat thick walled cystic masses associated with the stomach, possibly relating to gastric cysts versus pseudocysts. Areas of abscess not excluded . Atrophic appearance to the pancreas. Not stated previously, there is also a 3.8 mm hypodensity in the body of the pancreas which could reflect tiny cyst adenoma. Dilated fluid-filled loops of small bowel, with several small bowel loops having a thick-walled appearance. Findings may reflect reactive enteritis with ileus. Partial or incomplete obstruction not excluded. Small bibasilar pleural effusions.. TECHNICAL DOCUMENTATION: Quality ID # 436: Final reports with documentation of one or more dose reduction techniques (e.g., Automated exposure control, adjustment of the mA and/or kV according to patient size, use of iterative reconstruction technique) copyright 2011 [employer]- All Rights Reserved Chest X-Ray 06/14/18 06:00 IMPRESSION: Trace left basilar airspace disease. Tubes and lines in good positioning. Assessment & Plan - Diagnosis (1) Bowel perforation Is this a current diagnosis for this admission?: Yes Plan: Addressed surgically. The patient remains on dual antibiotic therapy. Despite this her white blood cell count is consistently increasing. Remains with low- grade temperature. Prognosis is grave. (2) Acute respiratory failure with hypoxia Is this a current diagnosis for this admission?: Yes Plan: Remains intubated. No spontaneous respirations above the set rate. Will maintain settings in anticipation of comfort measures on according to my discussion with the patient's daughter. (3) Hypoalbuminemia Is this a current diagnosis for this admission?: Yes Plan: Artificially improved with IV albumin given to assist with diuresis. Premorbid albumin was only 1.4 which contributes to her poor prognosis. (4) Hypothyroidism Qualifiers: Hypothyroidism type: unspecified Qualified Code(s): E03.9 - Hypothyroidism, unspecified Is this a current diagnosis for this admission?: Yes Plan: Given the current plan I will discontinue her levothyroxine. (5) Anemia Qualifiers: Anemia type: unspecified type Qualified Code(s): D64.9 - Anemia, unspecified Is this a current diagnosis for this admission?: Yes Plan: Slightly improved. Possibly hemoconcentration from removal of 3 and half liters of fluid over the last 2 days. (6) Hypomagnesemia Is this a current diagnosis for this admission?: Yes Plan: Serum magnesium is now normal. (7) Lactic acidemia Is this a current diagnosis for this admission?: Yes Plan: Resolved. - Time Time Spent with patient: 35 or more minutes Medications reviewed and adjusted accordingly: Yes - Plan Summary Plan Summary: I was able to review a copy of the patient's living will. It clearly states that she does not want heroic measures with a terminal prognosis. Her condition at this time certainly qualifies. I had a discussion with her daughter Radha Roach this morning. She is in agreement with moving towards comfort measures however she would like to wait until as there are some family members who have not had a chance to visit. We did discuss her current CODE STATUS. She did agree that if anything were to happen between now and a change to DO NOT RESUSCITATE would be consistent with her mother's wishes. That order was placed.
[2018-06-14] MEDS: MORPHINE SULFATE 10 MG/ML INJ IV PRN (11:40)
[2018-06-14] MEDS: PANTOPRAZOLE SODIUM 40 MG VIAL IV SCH ×2 (11:40→22:05)
[2018-06-14 14:10] LABS: PATH REVIEW PATHOLOGIST REVIEWED
[2018-06-14] MEDS: VANCOMYCIN HCL 1,000 MG in DEXTROSE 5%-WATER 250 ML IV SCH (16:27)
--- NOTE | 2018-06-14 16:32 | Operative Report ---
Operative Report DATE OF SURGERY: 06/11/18 PREOPERATIVE DIAGNOSIS: Perforated bowel, sepsis, peritonitis. POSTOPERATIVE DIAGNOSIS: Perforated gastric ulcer. OPERATION: Exploratory laparotomy with omental patch of gastric ulcer. Jejunal feeding tube placement. Peritoneal cavity washout. SURGEON: JOEY ALMANZA ANESTHESIA: GA TISSUE REMOVED OR ALTERED: None COMPLICATIONS: None ESTIMATED BLOOD LOSS: 100 cc INTRAOPERATIVE FINDINGS: 2 cm perforation of the anterior gastric fundus near the gastric cardia adjacent to the greater curvature with widespread contamination. The greater curvature of the stomach firmly adhered to the transverse colon mesocolon and the region of the tail of the pancreas and the splenic hilum. No peritoneal studding. Smooth liver surface with no obvious liver lesions. Normal-appearing small bowel. Normal-appearing appendix. Normal feeling right and left and sigmoid colon. No transverse colon mass palpable but the distal transverse colon mesentery matted to the greater curvature region of the stomach. No omental masses noted although the omentum along the greater curvature of the stomach firmly adhered to the in the transverse mesocolon. PROCEDURE: Informed consent was obtained. Patient was brought to the operating room placed on the operating table in the supine position. After satisfactory induction of general anesthesia patient's abdomen was prepped and draped in usual sterile fashion. A midline abdominal incision was made dissection was carried out through the fascia and the peritoneal cavity was entered without difficulty. There was copious amount of turbid fluid throughout the peritoneal cavity. There was no odor to the fluid. Fluid was aspirated and an exploratory laparotomy was performed. Palpation initially demonstrated an inflammatory process in the patient's upper abdomen therefore the incision was extended cephalad to obtain better exposure. Palpation of the sigmoid colon revealed no significant abnormalities. The appendix appeared normal. The right colon felt normal. The left colon felt normal. The small bowel was run from the ligament of Treitz to the ileocecal junction and the small bowel had some diffuse edema but otherwise appeared unremarkable. The duodenum felt normal. The liver felt smooth with no obvious masses. The gallbladder appeared normal. There was thickening with marked inflammatory changes along the proximal half of the greater curvature of the stomach encompassing the mesentery of the distal transverse colon and the region of the splenic hilum and tail of the pancreas. There was a 2 cm perforation of the stomach near the gastric cardia at the greater curvature. The stomach wall felt thickened all around this area and the proximal aspect of the greater curvature was firmly adhered to the omentum and the transverse colon mesentery and the splenic hilum and the region of the tail of the pancreas. No masses were seen on the omentum itself. No peritoneal nodules were appreciated. Going through the gastrohepatic ligament there was a free plane posteriorly to the stomach but the lateral aspect of the posterior wall of the stomach, that is the greater curvature was firmly plastered to the surrounding tissues. Patient was obviously malnourished and septic. In order to perform a resection, it would involve a subtotal colectomy with partial transverse colon resection and possible distal pancreatic and possible splenic resection, which I did not think would be appropriate in this setting. I considered biopsying the edge of the gastric perforation but I did not wish to make the perforation larger. The tissues around it felt markedly inflamed. The gastric wall felt thickened all around this area but it was difficult to tell whether there was an actual gastric mass. NG tube placement was confirmed with palpation. The gastric perforation was repaired using an omental patch. The repair appeared secure and it was tested by insufflating air via the NG tube with irrigation fluid and the peritoneal cavity with no appearance of air bubbles within the peritoneal cavity. Hemostasis appeared to be good. The peritoneal cavity was irrigated and irrigant aspirated out. Irrigation fluid was clear at the end of the case. A 8 [place] jejunal feeding tube was placed into the proximal jejunum about 15-20 cm distal to the ligament of Treitz. A pursestring suture was placed at this entrance point. Seromuscular Vicryl sutures were placed to create a tunnel for the feeding tube. At the exit point of the feeding tube the jejunum was tacked to the peritoneum using interrupted Vicryl sutures. Sponge needle and instrument counts were all correct. The fas bev was closed with running PDS suture. Skin was closed with monet. The feeding tube was affixed to the skin using interrupted Prolene sutures. Marcaine was injected at the incision. Patient was taken to the intensive care unit intubated and in critical condition.
[2018-06-14 17:10] LABS: VANCOMYCIN,TROUGH 6.3 ug/mL (5.0-20.0)
[2018-06-14] MEDS: LEVOTHYROXINE SODIUM INJ/PF 0.1 MG SDV IV SCH (17:15)
[2018-06-14] MEDS: DEXTROSE 5%-WATER 250 ML with NOREPINEPHRINE BITARTRATE 4 MG IV PRN ×2 (17:17)
[2018-06-14] MEDS: CEFEPIME 1 GM/D5W RTU 1 GM/50 ML RTUPB IV SCH (17:17)
[2018-06-14] MEDS: VANCOMYCIN HCL 750 MG in DEXTROSE 5%-WATER 250 ML IV SCH (22:06)
[2018-06-15] MEDS: LEVALBUTEROL HCL NEB 0.63 MG/3 ML AMPUL NEB SCH ×3 (00:25→15:54)
[2018-06-15 05:46] LABS: BLOOD UREA NITROGEN 14 mg/dL (7-20); CALCIUM 7.7 mg/dL (8.4-10.2); GLUCOSE 96 mg/dL (75-110); POTASSIUM 3.6 mmol/L (3.6-5.0)
[2018-06-15 05:49] LABS: HEMATOCRIT 34.3 % (36.0-47.0); HEMOGLOBIN 11.7 g/dL (12.0-15.5); MEAN CORPUSCULAR HEMOGLOBIN 30.2 pg (27.0-33.4); MEAN CORPUSCULAR VOLUME 89 fl (80-97); PLATELET COUNT 211 10^3/uL (150-450); RED BLOOD COUNT 3.87 10^6/uL (3.72-5.28); RED CELL DISTRIBUTION WIDTH 13.9 % (11.5-14.0); WHITE BLOOD COUNT 19.8 10^3/uL (4.0-10.5)
[2018-06-15 05:53] LABS: ANION GAP 5 (5-19); CARBON DIOXIDE 29 mmol/L (22-30); CHLORIDE 98 mmol/L (98-107); SODIUM 131.6 mmol/L (137-145)
[2018-06-15 06:12] LABS: ABSOLUTE LYMPHOCYTES# (MANUAL) 1.8 10^3/uL (0.5-4.7); ABSOLUTE MONOCYTES # (MANUAL) 0.6 10^3/uL (0.1-1.4); BAND NEUTROPHILS % (MANUAL) 2 % (3-5); BASOPHILS % (MANUAL) 0 % (0-2); EOSINOPHILS % (MANUAL) 2 % (0-6); LYMPHOCYTES % (MANUAL) 7 % (13-45); MONOCYTES % (MANUAL) 3 % (3-13); SEGMENTED NEUTROPHILS % (MAN) 80 % (42-78); TOTAL CELLS COUNTED 100
[2018-06-15 06:13] LABS: PLATELET CLUMPS PRESENT; PLATELET COMMENT ADEQUATE; PLATELET GIANT PRESENT; PLATELET LARGE PRESENT; POLYCHROMASIA 1+; SCHISTOCYTES SLIGHT; TOXIC GRANULATION 1+; TOXIC VACUOLATION PRESENT
[2018-06-15 06:14] LABS: MYELOCYTES % (MANUAL) 2 % (0); PROMYELOCYTES % (MANUAL) 2 % (0)
--- NOTE | 2018-06-15 06:48 | RADIOLOGY REPORT (SQ) ---
EXAM DESCRIPTION: XR CHEST 1 VIEW COMPLETED DATE/TME: 06/15/2018 06:00 CLINICAL HISTORY: Respiratory Distress. 87 years Female, resp failure COMPARISON: One day prior. NUMBER OF VIEWS/TECHNIQUE: 1/AP FINDINGS: Tip of an endotracheal tube is 8 cm from the ashley at the thoracic inlet; recommend 3 cm advancement of the endotracheal tube. Moderate left lower thoracic opacity-fusion, moderate interstitial markings, atherosclerosis. Upper abdominal left paramedial surgical clips. Likely drainage catheter/tubing of the apical left upper abdominal quadrant partially imaged. Normal cardiac silhouette size. No pneumothorax. Stable bony thorax. IMPRESSION: 1. Tip of an endotracheal tube is 8 cm from the ashley at the thoracic inlet; recommend 3 cm advancement of the endotracheal tube. 2. Increased left lower lobar opacity.
--- NOTE | 2018-06-15 07:46 | PDOC PROGRESS REPORT ---
Subjective Progress Note for:: 06/15/18 Reason For Visit: PERFORATED GASTRIC ULCER Physical Exam Vital Signs: Temp Pulse Resp BP Pulse Ox 100.0 F 80 14 78/48 L 100 06/15/18 06:07 06/15/18 00:25 06/15/18 06:07 06/15/18 06:07 06/15/18 06:07 Intake & Output 06/14/18 06/15/18 06/16/18 06:59 06:59 06:59 Intake Total 593 586 Output Total 2332 049 500 Balance -8197 -521 -500 Weight 59.3 kg 58.6 kg General appearance: PRESENT: severe distress - pt remains intubated, non responsive and a levophed drip Results Laboratory Results: 06/15/18 05:22 06/15/18 05:22 06/15/18 06/15/18 05:22 05:22 WBC 19.8 H RBC 3.87 Hgb 11.7 L Hct 34.3 L MCV 89 MCH 30.2 MCHC 34.0 RDW 13.9 Plt Count 211 Seg Neutrophils % Not Reportable Lymphocytes % Not Reportable Monocytes % Not Reportable Eosinophils % Not Reportable Basophils % Not Reportable Absolute Neutrophils Not Reportable Absolute Lymphocytes Not Reportable Absolute Monocytes Not Reportable Absolute Eosinophils Not Reportable Absolute Basophils Not Reportable Sodium 131.6 L Potassium 3.6 Chloride 98 Carbon Dioxide 29 Anion Gap 5 BUN 14 Creatinine 0.43 L Est GFR ( Amer) > 60 Est GFR (Non-Af Amer) > 60 Glucose 96 Calcium 7.7 L Impressions: KUB X-Ray 06/10/18 18:05 IMPRESSION: NO RADIOGRAPHIC EVIDENCE FOR ACUTE ABDOMINAL DISEASE. Abdomen/Pelvis CT 06/10/18 19:07 IMPRESSION: Free intraperitoneal air consistent with rupture of a hollow viscus. Large volume of ascites. Exact site for the perforated viscus is indeterminate. Some of the free intraperitoneal air extends into the posterior mediastinum/GE junction region. Subjective wall thickening of the distal esophagus. There are 2 somewhat thick walled cystic masses associated with the stomach, possibly relating to gastric cysts versus pseudocysts. Areas of abscess not excluded . Atrophic appearance to the pancreas. Not stated previously, there is also a 3.8 mm hypodensity in the body of the pancreas which could reflect tiny cyst adenoma. Dilated fluid-filled loops of small bowel, with several small bowel loops having a thick-walled appearance. Findings may reflect reactive enteritis with ileus. Partial or incomplete obstruction not excluded. Small bibasilar pleural effusions.. TECHNICAL DOCUMENTATION: Quality ID # [id number]: Final reports with documentation of one or more dose reduction techniques (e.g., Automated exposure control, adjustment of the mA and/or kV according to patient size, use of iterative reconstruction technique) copyright 2011 [employer]- All Rights Reserved Chest X-Ray 06/15/18 06:00 IMPRESSION: 1. Tip of an endotracheal tube is 8 cm from the ashley at the thoracic inlet; recommend 3 cm advancement of the endotracheal tube. 2. Increased left lower lobar opacity. Assessment & Plan - Inpatient Certification Medical Necessity: Failure to Improve With Outpatient Therapy, Significant Comorbidiites Make Outpatient Treatment Too Risky, Need For IV Fluids - Plan Summary Plan Summary: pt remains intubated, per chart review and discussion with nurses pt is now dnr. family requests no heroic measures plan on extubation when family arrives on surgery is available for any needs.
[2018-06-15] MEDS: VANCOMYCIN HCL 750 MG in DEXTROSE 5%-WATER 250 ML IV SCH ×2 (09:20→21:54)
[2018-06-15] MEDS: PANTOPRAZOLE SODIUM 40 MG VIAL IV SCH ×2 (09:21→21:54)
--- NOTE | 2018-06-15 14:54 | PDOC CONSULTATION ---
Consultation Consult Date: 06/15/18 Attending physician:: BOB CHAVEZ Consult reason:: Respiratory failure History of Present Illness Admission Date/PCP: 06/10/18 22:28 RAJ GUERRERO MD History of Present Illness: TAN ARAUJO is a 87 year old female; taken to the operating room air after p erforated viscus but as well as tumor appeared to be wrapping around his her stomach as well as several vital organs please review surgical note patient is currently intubated and sedated and it is permanent that she has a will place not available at this time and he has a history of smoking the extent of which is yet to be determined Past Medical History Cardiac Medical History: Denies: Coronary Artery Disease, Myocardial Infarction, Hypertension Pulmonary Medical History: Denies: Asthma, Bronchitis, Chronic Obstructive Pulmonary Disease (COPD), Pneumonia Neurological Medical History: Denies: Seizures Endocrine Medical History: Reports: Hypothyroidism GI Medical History: Denies: Hepatitis, Hiatal Hernia Musculoskeltal Medical History: Denies: Arthritis Psychiatric Medical History: Reports: Dementia Hematology: Denies: Anemia, Sickle Cell Disease Past Surgical History Past Surgical History: Reports: Tonsillectomy Denies: Amputation, Hysterectomy, Mastectomy, Pacemaker Social History Information Source: [facility] Records Lives with: Family Smoking Status: Former Smoker Frequency of Alcohol Use: None Hx Recreational Drug Use: No Drugs: None Hx Prescription Drug Abuse: No Family History Parental Family History Reviewed: No Children Family History Reviewed: No Sibling(s) Family History Reviewed.: No Medication/Allergy Home Medications: Calcium Carbonate [Calcium] 500 mg PO DAILY 06/11/18 Cyclosporine 0.05% Oph Emulsio [Restasis 0.05% Oph Emulsion Pf 0.4 ml] 1 drop OU BID 06/11/18 Levothyroxine Sodium [Synthroid 0.075 mg Tablet] 0.075 mcg PO Q6AM 06/11/18 Modafinil [Provigil] 200 mg PO DAILY 06/11/18 Tolterodine Tartrate [Detrol LA] 4 mg PO DAILY 06/11/18 Allergies/Adverse Reactions: No Known Allergies Allergy (Unverified 11/11/11 11:18) Review of Systems ROS unobtainable: Due to endotracheal tube Physical Exam Vital Signs: Temp Pulse Resp BP Pulse Ox 99.1 F 106 H 10 L 102/62 98 06/11/18 07:50 06/11/18 07:50 06/11/18 07:50 06/11/18 07:50 06/11/18 07:50 Intake & Output 06/10/18 06/11/18 06/12/18 06:59 06:59 06:59 Intake Total 4000 2650 Output Total 225 Balance 4000 2425 Weight 55.9 kg General appearance: PRESENT: no acute distress, thin, well-developed, well-nour ished. ABSENT: cooperative, disheveled Head exam: PRESENT: atraumatic, normocephalic Eye exam: PRESENT: conjunctiva pale, EOMI. ABSENT: nystagmus, scleral icterus Mouth exam: PRESENT: dry mucosa, neck supple, tongue midline, other - Endotracheal tube Neck exam: ABSENT: [place] bruit - [address], JVD, lymphadenopathy, thyromegaly, tracheal deviation, tracheostomy Respiratory exam: PRESENT: decreased breath sounds, prolonged expiratory phas, rales, rhonchi, unlabored Cardiovascular exam: PRESENT: RRR, +S1, +S2 Pulses: PRESENT: normal radial pulses GI/Abdominal exam: PRESENT: other - Status post surgery Gentrourinary exam: PRESENT: indwelling catheter Extremities exam: ABSENT: calf tenderness, clubbing, full ROM, joint swelling, pedal edema Musculoskeletal exam: ABSENT: ambulatory, deformity, dislocation Neurological exam: ABSENT: awake Skin exam: PRESENT: dry, warm Results Laboratory Results: 06/11/18 02:43 06/11/18 02:43 06/10/18 06/10/18 06/10/18 17:03 17:03 19:03 WBC 9.6 RBC 5.18 Hgb 16.0 H Hct 47.3 H MCV 91 MCH 30.9 MCHC 33.9 RDW 14.0 Plt Count 428 Seg Neutrophils % 89.7 H Lymphocytes % 5.3 L Monocytes % 4.8 Eosinophils % 0.0 Basophils % 0.2 Absolute Neutrophils 8.6 H Absolute Lymphocytes 0.5 Absolute Monocytes 0.5 Absolute Eosinophils 0.0 Absolute Basophils 0.0 Carbonic Acid HCO3/H2CO3 Ratio ABG pH ABG pCO2 ABG pO2 ABG HCO3 ABG O2 Saturation ABG Base Excess FiO2 Sodium 130.0 L Potassium 4.6 Chloride 92 L Carbon Dioxide 28 Anion Gap 10 BUN 18 Creatinine 0.93 Est GFR ( Amer) > 60 Est GFR (Non-Af Amer) 57 L Glucose 232 H Lactic Acid Calcium 9.6 Total Bilirubin 0.9 AST 70 H ALT 17 Alkaline Phosphatase 56 Total Protein 6.3 Albumin 3.2 L Lipase 105.1 Urine Color Urine Appearance Urine pH Ur Specific [place] Urine Protein Urine Glucose (UA) Urine Ketones Urine Blood Urine Nitrite Ur Leukocyte Esterase Urine WBC (Auto) Urine RBC (Auto) Stool Occult Blood NEGATIVE 06/10/18 06/10/18 06/11/18 20:00 22:17 02:43 WBC RBC Hgb Hct MCV MCH MCHC RDW Plt Count Seg Neutrophils % Lymphocytes % Monocytes % Eosinophils % Basophils % Absolute Neutrophils Absolute Lymphocytes Absolute Monocytes Absolute Eosinophils Absolute Basophils Carbonic Acid HCO3/H2CO3 Ratio ABG pH ABG pCO2 ABG pO2 ABG HCO3 ABG O2 Saturation ABG Base Excess FiO2 Sodium Potassium Chloride Carbon Dioxide Anion Gap BUN Creatinine Est GFR ( Amer) Est GFR (Non-Af Amer) Glucose Lactic Acid 4.6 H 3.5 H Calcium Total Bilirubin AST ALT Alkaline Phosphatase Total Protein Albumin Lipase Urine Color LUCÍA Urine Appearance CLOUDY Urine pH 5.0 Ur Specific [place] 1.054 Urine Protein 100 H Urine Glucose (UA) 50 H Urine Ketones TRACE H Urine Blood NEGATIVE Urine Nitrite NEGATIVE Ur Leukocyte Esterase NEGATIVE Urine WBC (Auto) 7 Urine RBC (Auto) 7 Stool Occult Blood 06/11/18 06/11/18 06/11/18 02:43 02:43 04:55 WBC 14.2 H RBC 5.12 Hgb 15.4 Hct 47.2 H MCV 92 MCH 30.1 MCHC 32.6 RDW 14.0 Plt Count 280 Seg Neutrophils % Lymphocytes % Monocytes % Eosinophils % Basophils % Absolute Neutrophils Absolute Lymphocytes Absolute Monocytes Absolute Eosinophils Absolute Basophils Carbonic Acid 1.71 H HCO3/H2CO3 Ratio 12:1 ABG pH 7.21 L ABG pCO2 56.8 H ABG pO2 157.8 H ABG HCO3 22.1 ABG O2 Saturation 98.6 H ABG Base Excess -6.6 FiO2 40% Sodium 132.2 L Potassium 4.5 Chloride 104 Carbon Dioxide 23 Anion Gap 5 BUN 16 Creatinine 0.60 Est GFR ( Amer) > 60 Est GFR (Non-Af Amer) > 60 Glucose 167 H Lactic Acid Calcium 8.2 L Total Bilirubin AST ALT Alkaline Phosphatase Total Protein Albumin Lipase Urine Color Urine Appearance Urine pH Ur Specific [place] Urine Protein Urine Glucose (UA) Urine Ketones Urine Blood Urine Nitrite Ur Leukocyte Esterase Urine WBC (Auto) Urine RBC (Auto) Stool Occult Blood Impressions: KUB X-Ray 06/10/18 18:05 IMPRESSION: NO RADIOGRAPHIC EVIDENCE FOR ACUTE ABDOMINAL DISEASE. Abdomen/Pelvis CT 06/10/18 19:07 IMPRESSION: Free intraperitoneal air consistent with rupture of a hollow viscus. Large volume of ascites. Exact site for the perforated viscus is indeterminate. Some of the free intraperitoneal air extends into the posterior mediastinum/GE junction region. Subjective wall thickening of the distal esophagus. There are 2 somewhat thick walled cystic masses associated with the stomach, possibly relating to gastric cysts versus pseudocysts. Areas of abscess not excluded . Atrophic appearance to the pancreas. Not stated previously, there is also a 3.8 mm hypodensity in the body of the pancreas which could reflect tiny cyst adenoma. Dilated fluid-filled loops of small bowel, with several small bowel loops having a thick-walled appearance. Findings may reflect reactive enteritis with ileus. Partial or incomplete obstruction not excluded. Small bibasilar pleural effusions.. TECHNICAL DOCUMENTATION: Quality ID # 436: Final reports with documentation of one or more dose reduction techniques (e.g., Automated exposure control, adjustment of the mA and/or kV according to patient size, use of iterative reconstruction technique) copyright 2011 [employer]- All Rights Reserved Chest X-Ray 06/11/18 04:45 IMPRESSION: 1. No definite acute intrathoracic disease. There is mild chronic scarring in the lung bases. 2. Stable life support lines and tubes as visualized. Assessment & Plan - Diagnosis (1) Acute respiratory failure with hypoxia Is this a current diagnosis for this admission?: Yes Plan: Subsequent mechanical ventilation control ventilation appropriate for maintaining pH balance as well as acceptable oxygenation (2) Gastric perforation Is this a current diagnosis for this admission?: Yes Plan: As per surgery (3) Hypoalbuminemia Is this a current diagnosis for this admission?: Yes Plan: Albumin 1.4 very severe (4) Severe sepsis Is this a current diagnosis for this admission?: Yes Plan: Currently using vasopressor agents - Time Total Critical Time (Minutes): 55
[2018-06-15] MEDS: MIDAZOLAM HCL 50 MG/100 ML RTUINJ IV PRN (15:01)
[2018-06-15 16:15] LABS: PATH REVIEW PATHOLOGIST REVIEWED
[2018-06-15] MEDS: DEXTROSE 5%-WATER 250 ML with NOREPINEPHRINE BITARTRATE 4 MG IV PRN ×2 (17:00)
[2018-06-15] MEDS: CEFEPIME 1 GM/D5W RTU 1 GM/50 ML RTUPB IV SCH (17:19)
--- NOTE | 2018-06-15 17:20 | PDOC PROGRESS REPORT ---
Subjective Progress Note for:: 06/15/18 Subjective:: Chart reviewed, no change in condition Reason For Visit: PERFORATED GASTRIC ULCER Physical Exam Vital Signs: Temp Pulse Resp BP Pulse Ox 99.3 F 86 14 110/65 100 06/15/18 16:00 06/15/18 16:00 06/15/18 16:00 06/15/18 16:00 06/15/18 16:00 Intake & Output 06/14/18 06/15/18 06/16/18 06:59 06:59 06:59 Intake Total 593 886 502 Output Total 2335 186 715 Balance -1742 36 -213 Weight 59.3 kg 58.6 kg General appearance: PRESENT: no acute distress, other - intubated Head exam: PRESENT: atraumatic Neck exam: ABSENT: carotid bruit, JVD, lymphadenopathy, thyromegaly GI/Abdominal exam: PRESENT: other - dressings, drainage Rectal exam: PRESENT: deferred Results Laboratory Results: 06/15/18 05:22 06/15/18 05:22 06/15/18 06/15/18 05:22 05:22 WBC 19.8 H RBC 3.87 Hgb 11.7 L Hct 34.3 L MCV 89 MCH 30.2 MCHC 34.0 RDW 13.9 Plt Count 211 Seg Neutrophils % Not Reportable Lymphocytes % Not Reportable Monocytes % Not Reportable Eosinophils % Not Reportable Basophils % Not Reportable Absolute Neutrophils Not Reportable Absolute Lymphocytes Not Reportable Absolute Monocytes Not Reportable Absolute Eosinophils Not Reportable Absolute Basophils Not Reportable Sodium 131.6 L Potassium 3.6 Chloride 98 Carbon Dioxide 29 Anion Gap 5 BUN 14 Creatinine 0.43 L Est GFR ( Amer) > 60 Est GFR (Non-Af Amer) > 60 Glucose 96 Calcium 7.7 L Impressions: KUB X-Ray 06/10/18 18:05 IMPRESSION: NO RADIOGRAPHIC EVIDENCE FOR ACUTE ABDOMINAL DISEASE. Abdomen/Pelvis CT 06/10/18 19:07 IMPRESSION: Free intraperitoneal air consistent with rupture of a hollow viscus. Large volume of ascites. Exact site for the perforated viscus is indeterminate. Some of the free intraperitoneal air extends into the posterior mediastinum/GE junction region. Subjective wall thickening of the distal esophagus. There are 2 somewhat thick walled cystic masses associated with the stomach, possibly relating to gastric cysts versus pseudocysts. Areas of abscess not excluded . Atrophic appearance to the pancreas. Not stated previously, there is also a 3.8 mm hypodensity in the body of the pancreas which could reflect tiny cyst adenoma. Dilated fluid-filled loops of small bowel, with several small bowel loops having a thick-walled appearance. Findings may reflect reactive enteritis with ileus. Partial or incomplete obstruction not excluded. Small bibasilar pleural effusions.. TECHNICAL DOCUMENTATION: Quality ID # 436: Final reports with documentation of one or more dose reduction techniques (e.g., Automated exposure control, adjustment of the mA and/or kV according to patient size, use of iterative reconstruction technique) copyright 2011 [employer]- All Rights Reserved Chest X-Ray 06/15/18 06:00 IMPRESSION: 1. Tip of an endotracheal tube is 8 cm from the ashley at the thoracic inlet; recommend 3 cm advancement of the endotracheal tube. 2. Increased left lower lobar opacity. Assessment & Plan - Diagnosis (1) Acute respiratory failure with hypoxia Is this a current diagnosis for this admission?: Yes (2) Anemia Qualifiers: Anemia type: unspecified type Qualified Code(s): D64.9 - Anemia, unspecified Is this a current diagnosis for this admission?: Yes (3) Bowel perforation Is this a current diagnosis for this admission?: Yes (4) Hypoalbuminemia Is this a current diagnosis for this admission?: Yes (5) Hypomagnesemia Is this a current diagnosis for this admission?: Yes (6) Severe sepsis Is this a current diagnosis for this admission?: Yes - Time Time Spent with patient: 15-24 minutes - Inpatient Certification Based on my medical assessment, after consideration of the patient's comorbid ities, presenting symptoms, or acuity I expect that the services needed warrant INPATIENT care.: Yes Medical Necessity: Other - Intubated - Plan Summary Plan Summary: Condition poor, terminal Prognosis dismal
[2018-06-16] MEDS: LEVALBUTEROL HCL NEB 0.63 MG/3 ML AMPUL NEB SCH ×3 (00:44→16:20)
[2018-06-16 05:24] LABS: ARTERIAL BLOOD BASE EXCESS 3.3 mmol/L; ARTERIAL BLOOD H2CO3 0.98 mmol/L (1.05-1.35); ARTERIAL BLOOD HCO3 25.8 mmol/L (20-24); ARTERIAL BLOOD O2 SATURATION 97.3 % (94-98); ARTERIAL BLOOD PCO2 32.6 mmHg (35-45); ARTERIAL BLOOD PH 7.52 (7.35-7.45); ARTERIAL BLOOD PO2 85.4 mmHg (80-100); ARTERIAL BLOOD TOTAL CO2 26.8 mmol/L (21-25)
[2018-06-16 05:25] LABS: ARTERIAL BLOOD FIO2 25%
[2018-06-16 05:33] LABS: HEMATOCRIT 34.2 % (36.0-47.0); HEMOGLOBIN 11.6 g/dL (12.0-15.5); MEAN CORPUSCULAR HEMOGLOBIN 30.3 pg (27.0-33.4); MEAN CORPUSCULAR HGB CONC 33.9 g/dL (32.0-36.0); MEAN CORPUSCULAR VOLUME 89 fl (80-97); PLATELET COUNT 233 10^3/uL (150-450); RED BLOOD COUNT 3.84 10^6/uL (3.72-5.28); WHITE BLOOD COUNT 21.4 10^3/uL (4.0-10.5)
[2018-06-16 05:44] LABS: BLOOD UREA NITROGEN 12 mg/dL (7-20); CALCIUM 7.9 mg/dL (8.4-10.2); CARBON DIOXIDE 29 mmol/L (22-30); CHLORIDE 98 mmol/L (98-107); GLUCOSE 120 mg/dL (75-110); POTASSIUM 3.5 mmol/L (3.6-5.0); SODIUM 130.8 mmol/L (137-145)
[2018-06-16 05:51] LABS: ANION GAP 4 (5-19)
[2018-06-16] MEDS: MIDAZOLAM HCL 50 MG/100 ML RTUINJ IV PRN ×2 (05:52→16:48)
[2018-06-16 05:53] LABS: ABSOLUTE LYMPHOCYTES# (MANUAL) 1.1 10^3/uL (0.5-4.7); ABSOLUTE MONOCYTES # (MANUAL) 1.1 10^3/uL (0.1-1.4); ABSOLUTE NEUTROPHILS# (MANUAL) 18.8 10^3/uL (1.7-8.2); BASOPHILS % (MANUAL) 0 % (0-2); EOSINOPHILS % (MANUAL) 2 % (0-6); LYMPHOCYTES % (MANUAL) 5 % (13-45); METAMYELOCYTES % (MANUAL) 1 % (0); MONOCYTES % (MANUAL) 5 % (3-13); SEGMENTED NEUTROPHILS % (MAN) 76 % (42-78); TOTAL CELLS COUNTED 100
[2018-06-16 05:54] LABS: ANISOCYTOSIS SLIGHT; BAND NEUTROPHILS % (MANUAL) 11 % (3-5); PLATELET COMMENT ADEQUATE; TOXIC GRANULATION SLIGHT
[2018-06-16] MEDS: DEXTROSE 5%-WATER 250 ML with NOREPINEPHRINE BITARTRATE 4 MG IV PRN ×4 (06:44→23:34)
--- NOTE | 2018-06-16 07:05 | RADIOLOGY REPORT (SQ) ---
EXAM DESCRIPTION: XR CHEST 1 VIEW COMPLETED DATE/TME: 06/16/2018 06:00 CLINICAL HISTORY: Respiratory Distress. 87 years Female, resp failure COMPARISON: One day prior. NUMBER OF VIEWS/TECHNIQUE: 1/AP FINDINGS: Moderate left lower opacity-effusion. Tip of an endotracheal tube is at the thoracic inlet, 8.5 cm from the ashley; consider advancement of the endotracheal tube by 3.5 cm. Likely adequate appearing enteric tube partially obscured. Likely drainage catheter partially imaged at the left upper abdominal quadrant.Adequate appearing left subclavian central line. No pneumothorax. Stable bony thorax. IMPRESSION: Tip of an endotracheal tube is at the thoracic inlet, 8.5 cm from the ashley; consider advancement of the endotracheal tube by 3.5 cm. Else, stable.
[2018-06-16 07:31] LABS: HELICOBACTER PYLORI IGA AB <9.0 units (0.0-8.9); HELICOBACTER PYLORI IGG AB <0.80 (0.00-0.79); HELICOBACTER PYLORI IGM AB <9.0 units (0.0-8.9)
--- NOTE | 2018-06-16 08:53 | PDOC PROGRESS REPORT ---
Subjective Progress Note for:: 06/16/18 Subjective:: patient sedated, unresponsive Reason For Visit: PERFORATED GASTRIC ULCER Physical Exam Vital Signs: Temp Pulse Resp BP Pulse Ox 98.6 F 89 14 103/59 L 99 06/16/18 06:38 06/16/18 08:28 06/16/18 08:28 06/16/18 06:38 06/16/18 08:28 Intake & Output 06/15/18 06/16/18 06/17/18 06:59 06:59 06:59 Intake Total 886 858 250 Output Total 850 1205 200 Balance 36 -347 50 Weight 58.6 kg 60 kg General appearance: PRESENT: other - sedated, unresponsive Respiratory exam: PRESENT: clear to auscultation fahad Cardiovascular exam: PRESENT: RRR GI/Abdominal exam: PRESENT: soft, other - wound c/d/i; MI drains with serous material Results Laboratory Results: 06/16/18 05:15 06/16/18 05:15 06/16/18 06/16/18 06/16/18 05:15 05:15 05:15 WBC 21.4 H RBC 3.84 Hgb 11.6 L Hct 34.2 L MCV 89 MCH 30.3 MCHC 33.9 RDW 14.0 Plt Count 233 Seg Neutrophils % Not Reportable Lymphocytes % Not Reportable Monocytes % Not Reportable Eosinophils % Not Reportable Basophils % Not Reportable Absolute Neutrophils Not Reportable Absolute Lymphocytes Not Reportable Absolute Monocytes Not Reportable Absolute Eosinophils Not Reportable Absolute Basophils Not Reportable Carbonic Acid 0.98 L HCO3/H2CO3 Ratio 26:1 ABG pH 7.52 H ABG pCO2 32.6 L ABG pO2 85.4 ABG HCO3 25.8 H ABG O2 Saturation 97.3 ABG Base Excess 3.3 FiO2 25% Sodium 130.8 L Potassium 3.5 L Chloride 98 Carbon Dioxide 29 Anion Gap 4 L BUN 12 Creatinine 0.53 Est GFR ( Amer) > 60 Est GFR (Non-Af Amer) > 60 Glucose 120 H Calcium 7.9 L 06/10/18 22:30 Blood Blood Culture - Final NO GROWTH IN 5 DAYS 06/10/18 20:00 Blood Blood Culture - Final NO GROWTH IN 5 DAYS Impressions: KUB X-Ray 06/10/18 18:05 IMPRESSION: NO RADIOGRAPHIC EVIDENCE FOR ACUTE ABDOMINAL DISEASE. Abdomen/Pelvis CT 06/10/18 19:07 IMPRESSION: Free intraperitoneal air consistent with rupture of a hollow viscus. Large volume of ascites. Exact site for the perforated viscus is indeterminate. Some of the free intraperitoneal air extends into the posterior mediastinum/GE junction region. Subjective wall thickening of the distal esophagus. There are 2 somewhat thick walled cystic masses associated with the stomach, possibly relating to gastric cysts versus pseudocysts. Areas of abscess not excluded . Atrophic appearance to the pancreas. Not stated previously, there is also a 3.8 mm hypodensity in the body of the pancreas which could reflect tiny cyst adenoma. Dilated fluid-filled loops of small bowel, with several small bowel loops having a thick-walled appearance. Findings may reflect reactive enteritis with ileus. Partial or incomplete obstruction not excluded. Small bibasilar pleural effusions.. TECHNICAL DOCUMENTATION: Quality ID # 436: Final reports with documentation of one or more dose reduction techniques (e.g., Automated exposure control, adjustment of the mA and/or kV according to patient size, use of iterative reconstruction technique) copyright 2011 [employer]- All Rights Reserved Chest X-Ray 06/16/18 06:00 IMPRESSION: Tip of an endotracheal tube is at the thoracic inlet, 8.5 cm from the ashley; consider advancement of the endotracheal tube by 3.5 cm. Else, stable. Assessment & Plan - Diagnosis (1) Terminal care Is this a current diagnosis for this admission?: Yes (2) Bowel perforation Is this a current diagnosis for this admission?: Yes (3) Gastric perforation Is this a current diagnosis for this admission?: Yes - Plan Summary Plan Summary: A/ Chart reviewed Patient suffers from terminal gastrointestinal condition not amenable of surgical care No other options offered by Surgical team P/ Awaiting for son coming from [place] to change the patient status from full care to withdrawal of care Terminal extubation tomorrow No change in treatment at this point
[2018-06-16] MEDS: VANCOMYCIN HCL 750 MG in DEXTROSE 5%-WATER 250 ML IV SCH ×2 (10:00→21:25)
[2018-06-16] MEDS: PANTOPRAZOLE SODIUM 40 MG VIAL IV SCH ×2 (10:00→21:26)
[2018-06-16 10:44] LABS: VANCOMYCIN,TROUGH 10.9 ug/mL (5.0-20.0)
--- NOTE | 2018-06-16 11:39 | PDOC PROGRESS REPORT ---
Subjective Progress Note for:: 06/16/18 Subjective:: no change in condition Patient intubated, non responsive. S/p operative repair /laparotomy of perf viscus, omental patch repair of gastric ulcer Patient is still receiving active treatment pending arrival of son from [place]. Plan for possible withdrawal of care and extubation however this is not certain as the son's wishes or plan unknown. Patient still being actively treated post op Still on mechanical ventilation, has 2 MI drains, NG tube, IV antibiotics, L evophed Reason For Visit: PERFORATED GASTRIC ULCER Physical Exam Vital Signs: Temp Pulse Resp BP Pulse Ox 98.6 F 89 13 103/59 L 97 06/16/18 06:38 06/16/18 08:28 06/16/18 10:00 06/16/18 06:38 06/16/18 10:00 Intake & Output 06/15/18 06/16/18 06/17/18 06:59 06:59 06:59 Intake Total 886 858 250 Output Total 850 1205 575 Balance 36 -347 -325 Weight 58.6 kg 60 kg General appearance: PRESENT: no acute distress, other - mechanical ventilation Head exam: PRESENT: atraumatic Respiratory exam: PRESENT: other - Vent Cardiovascular exam: PRESENT: RRR. ABSENT: diastolic murmur, rubs, systolic murmur GI/Abdominal exam: PRESENT: other - monet in place, wound looks clean [address] with serosangenous fluid Rectal exam: PRESENT: deferred Neurological exam: PRESENT: other - sedated, unresponsive Results Laboratory Results: 06/16/18 05:15 06/16/18 05:15 06/16/18 06/16/18 06/16/18 05:15 05:15 05:15 WBC 21.4 H RBC 3.84 Hgb 11.6 L Hct 34.2 L MCV 89 MCH 30.3 MCHC 33.9 RDW 14.0 Plt Count 233 Seg Neutrophils % Not Reportable Lymphocytes % Not Reportable Monocytes % Not Reportable Eosinophils % Not Reportable Basophils % Not Reportable Absolute Neutrophils Not Reportable Absolute Lymphocytes Not Reportable Absolute Monocytes Not Reportable Absolute Eosinophils Not Reportable Absolute Basophils Not Reportable Carbonic Acid 0.98 L HCO3/H2CO3 Ratio 26:1 ABG pH 7.52 H ABG pCO2 32.6 L ABG pO2 85.4 ABG HCO3 25.8 H ABG O2 Saturation 97.3 ABG Base Excess 3.3 FiO2 25% Sodium 130.8 L Potassium 3.5 L Chloride 98 Carbon Dioxide 29 Anion Gap 4 L BUN 12 Creatinine 0.53 Est GFR ( Amer) > 60 Est GFR (Non-Af Amer) > 60 Glucose 120 H Calcium 7.9 L 06/10/18 22:30 Blood Blood Culture - Final NO GROWTH IN 5 DAYS 06/10/18 20:00 Blood Blood Culture - Final NO GROWTH IN 5 DAYS Impressions: KUB X-Ray 06/10/18 18:05 IMPRESSION: NO RADIOGRAPHIC EVIDENCE FOR ACUTE ABDOMINAL DISEASE. Abdomen/Pelvis CT 06/10/18 19:07 IMPRESSION: Free intraperitoneal air consistent with rupture of a hollow viscus. Large volume of ascites. Exact site for the perforated viscus is indeterminate. Some of the free intraperitoneal air extends into the posterior mediastinum/GE junction region. Subjective wall thickening of the distal esophagus. There are 2 somewhat thick walled cystic masses associated with the stomach, possibly relating to gastric cysts versus pseudocysts. Areas of abscess not excluded . Atrophic appearance to the pancreas. Not stated previously, there is also a 3.8 mm hypodensity in the body of the pancreas which could reflect tiny cyst adenoma. Dilated fluid-filled loops of small bowel, with several small bowel loops having a thick-walled appearance. Findings may reflect reactive enteritis with ileus. Partial or incomplete obstruction not excluded. Small bibasilar pleural effusions.. TECHNICAL DOCUMENTATION: Quality ID # 436: Final reports with documentation of one or more dose reduction techniques (e.g., Automated exposure control, adjustment of the mA and/or kV according to patient size, use of iterative reconstruction technique) copyright 2011 [employer]- All Rights Reserved Chest X-Ray 06/16/18 06:00 IMPRESSION: Tip of an endotracheal tube is at the thoracic inlet, 8.5 cm from the ashley; consider advancement of the endotracheal tube by 3.5 cm. Else, stable. Assessment & Plan - Diagnosis (1) Acute respiratory failure with hypoxia Is this a current diagnosis for this admission?: Yes Plan: Continue mechanical ventilation (2) Anemia Qualifiers: Anemia type: unspecified type Qualified Code(s): D64.9 - Anemia, unspecified Is this a current diagnosis for this admission?: Yes (3) Bowel perforation Is this a current diagnosis for this admission?: Yes Plan: Status post exploratory laparotomy and omental patch of gastric ulcer (4) Hypoalbuminemia Is this a current diagnosis for this admission?: Yes (5) Hypomagnesemia Is this a current diagnosis for this admission?: Yes (6) Severe sepsis Is this a current diagnosis for this admission?: Yes Plan: We will continue with current antibiotics as well as Levophed to support blood pressure - Time Time Spent with patient: 15-24 minutes Medications reviewed and adjusted accordingly: Yes - Inpatient Certification Based on my medical assessment, after consideration of the patient's comorbidities, presenting symptoms, or acuity I expect that the services needed warrant INPATIENT care.: Yes Medical Necessity: Need for IV Antibiotics, Other - Mechanical ventilation - Plan Summary Plan Summary: According to computer records the plan is for patient son to arrive hopefully tomorrow from [place] and at that time MAY decide on terminally extubating the patient however as of this time patient is still under full treatment and management as outlined above. She is a postoperative patient. Medicine was consulted to help in her management. Patient remains on the surgical service as the primary team and I will suggest no change in the primary service as of now. Thank you for asking us to consult on this patient. We will continue to follow with you as appropriate
[2018-06-16] MEDS: CEFEPIME 1 GM/D5W RTU 1 GM/50 ML RTUPB IV SCH (17:40)
[2018-06-17] MEDS: LEVALBUTEROL HCL NEB 0.63 MG/3 ML AMPUL NEB SCH ×3 (00:44→16:19)
[2018-06-17] MEDS: MIDAZOLAM HCL 50 MG/100 ML RTUINJ IV PRN (03:23)
[2018-06-17 05:14] LABS: ARTERIAL BLOOD BASE EXCESS 4.3 mmol/L; ARTERIAL BLOOD HCO3 26.9 mmol/L (20-24); ARTERIAL BLOOD O2 SATURATION 97.9 % (94-98); ARTERIAL BLOOD PCO2 33.2 mmHg (35-45); ARTERIAL BLOOD PH 7.53 (7.35-7.45); ARTERIAL BLOOD PO2 94.1 mmHg (80-100); ARTERIAL BLOOD TOTAL CO2 27.9 mmol/L (21-25)
[2018-06-17 05:15] LABS: ARTERIAL BLOOD FIO2 25%
[2018-06-17 05:20] LABS: HEMATOCRIT 33.3 % (36.0-47.0); HEMOGLOBIN 11.3 g/dL (12.0-15.5); MEAN CORPUSCULAR VOLUME 88 fl (80-97); PLATELET COUNT 249 10^3/uL (150-450); RED BLOOD COUNT 3.78 10^6/uL (3.72-5.28); RED CELL DISTRIBUTION WIDTH 13.9 % (11.5-14.0); WHITE BLOOD COUNT 20.7 10^3/uL (4.0-10.5)
[2018-06-17 05:29] LABS: ALANINE AMINOTRANSFERASE 27 U/L (9-52); ALBUMIN 1.7 g/dL (3.5-5.0); ALKALINE PHOSPHATASE 45 U/L (38-126); ASPARTATE AMINO TRANSFERASE 28 U/L (14-36); BILIRUBIN,DIRECT 0.2 mg/dL (0.0-0.4); BILIRUBIN,TOTAL 0.5 mg/dL (0.2-1.3); BLOOD UREA NITROGEN 11 mg/dL (7-20); CALCIUM 7.8 mg/dL (8.4-10.2); CARBON DIOXIDE 30 mmol/L (22-30); CHLORIDE 98 mmol/L (98-107); GLUCOSE 121 mg/dL (75-110); POTASSIUM 3.7 mmol/L (3.6-5.0); SODIUM 129.7 mmol/L (137-145); TOTAL PROTEIN 3.7 g/dL (6.3-8.2)
[2018-06-17 05:37] LABS: ANION GAP 2 (5-19)
[2018-06-17 05:52] LABS: ABSOLUTE LYMPHOCYTES# (MANUAL) 1.4 10^3/uL (0.5-4.7); ABSOLUTE MONOCYTES # (MANUAL) 1.2 10^3/uL (0.1-1.4); ABSOLUTE NEUTROPHILS# (MANUAL) 17.2 10^3/uL (1.7-8.2); BAND NEUTROPHILS % (MANUAL) 13 % (3-5); BASOPHILS % (MANUAL) 0 % (0-2); EOSINOPHILS % (MANUAL) 4 % (0-6); LYMPHOCYTES % (MANUAL) 6 % (13-45); METAMYELOCYTES % (MANUAL) 1 % (0); MONOCYTES % (MANUAL) 6 % (3-13); PLATELET COMMENT ADEQUATE; RBC MORPHOLOGY COMMENT NORMO-CYTIC/CHROMIC; SEGMENTED NEUTROPHILS % (MAN) 69 % (42-78); TOTAL CELLS COUNTED 100; TOXIC GRANULATION 1+; TOXIC VACUOLATION PRESENT
--- NOTE | 2018-06-17 06:53 | RADIOLOGY REPORT (SQ) ---
EXAM DESCRIPTION: XR CHEST 1 VIEW COMPLETED DATE/TME: 06/17/2018 06:00 CLINICAL HISTORY: Respiratory Distress. 87 years Female, resp faillure COMPARISON: One day prior. NUMBER OF VIEWS/TECHNIQUE: 1/AP FINDINGS: Endotracheal tube tip is at the thoracic inlet, 10.9 cm from ashley; consider advancement/replacement of the endotracheal tube by 6 cm. Moderate left lower retrocardiac opacity. Mild interstitial markings.Left PICC appears adequate. Likely adequate appearing enteric tube partially obscured. Normal cardiac silhouette size.Atherosclerotic vascular disease. No pneumothorax. Stable bony thorax. IMPRESSION: Endotracheal tube tip is at the thoracic inlet, 10.9 cm from ashley; consider advancement/replacement of the endotracheal tube by 6 cm. Else, stable.
--- NOTE | 2018-06-17 07:24 | Progress Note ---
Provider Note Provider Note: Patient terminal Terminal extubation planned for today. patient to be transferred to the Hospitalist service.
[2018-06-17] MEDS: PANTOPRAZOLE SODIUM 40 MG VIAL IV SCH (09:34)
[2018-06-17] MEDS: VANCOMYCIN HCL 750 MG in DEXTROSE 5%-WATER 250 ML IV SCH (09:34)
[2018-06-17] MEDS ORDERED: MORPHINE SULFATE 60 MG/60 ML RTUINJ IV PRN (10:53)
[2018-06-17] MEDS: DEXTROSE 5%-WATER 250 ML with NOREPINEPHRINE BITARTRATE 4 MG IV PRN ×2 (11:20)
[2018-06-17] MEDS: MORPHINE SULFATE 10 MG/ML INJ IV PRN ×4 (15:46→19:43)
[2018-06-17] MEDS: CEFEPIME 1 GM/D5W RTU 1 GM/50 ML RTUPB IV SCH (17:18)
--- NOTE | 2018-06-17 17:26 | PDOC PROGRESS REPORT ---
Subjective Progress Note for:: 06/17/18 Subjective:: no change in condition Patient intubated, non responsive. S/p operative repair /laparotomy of perf viscus, omental patch repair of gastric ulcer Patient is still receiving active treatment pending arrival of son from [place] apparently today Plan for possible withdrawal of care and extubation however Patient still being actively treated post op Still on mechanical ventilation, has 2 MI drains, NG tube, IV antibiotics, Levophed Reason For Visit: PERFORATED GASTRIC ULCER Physical Exam Vital Signs: Temp Pulse Resp BP Pulse Ox 99.7 F 87 8 L 92/48 L 98 06/17/18 14:00 06/17/18 14:15 06/17/18 14:15 06/17/18 14:15 06/17/18 14:15 Intake & Output 06/16/18 06/17/18 06/18/18 06:59 06:59 06:59 Intake Total 858 1222 594 Output Total 1205 1065 405 Balance -347 157 189 Weight 60 kg 59.8 kg General appearance: PRESENT: no acute distress, other - on mechanical ventilation Head exam: PRESENT: atraumatic Neck exam: ABSENT: carotid bruit, JVD, lymphadenopathy, thyromegaly Respiratory exam: PRESENT: clear to auscultation fahad, unlabored GI/Abdominal exam: PRESENT: other - NGT drainingIncision clean, no discharges, MI drain in place Results Laboratory Results: 06/17/18 05:05 06/17/18 05:05 06/17/18 06/17/18 06/17/18 05:05 05:05 05:05 WBC 20.7 H RBC 3.78 Hgb 11.3 L Hct 33.3 L MCV 88 MCH 30.0 MCHC 34.0 RDW 13.9 Plt Count 249 Seg Neutrophils % Not Reportable Lymphocytes % Not Reportable Monocytes % Not Reportable Eosinophils % Not Reportable Basophils % Not Reportable Absolute Neutrophils Not Reportable Absolute Lymphocytes Not Reportable Absolute Monocytes Not Reportable Absolute Eosinophils Not Reportable Absolute Basophils Not Reportable Carbonic Acid 1.00 L HCO3/H2CO3 Ratio 26:1 ABG pH 7.53 H ABG pCO2 33.2 L ABG pO2 94.1 ABG HCO3 26.9 H ABG O2 Saturation 97.9 ABG Base Excess 4.3 FiO2 25% Sodium 129.7 L Potassium 3.7 Chloride 98 Carbon Dioxide 30 Anion Gap 2 L BUN 11 Creatinine 0.47 L Est GFR ( Amer) > 60 Est GFR (Non-Af Amer) > 60 Glucose 121 H Calcium 7.8 L Magnesium 1.9 Total Bilirubin 0.5 AST 28 ALT 27 Alkaline Phosphatase 45 Total Protein 3.7 L Albumin 1.7 L Impressions: KUB X-Ray 06/10/18 18:05 IMPRESSION: NO RADIOGRAPHIC EVIDENCE FOR ACUTE ABDOMINAL DISEASE. Abdomen/Pelvis CT 06/10/18 19:07 IMPRESSION: Free intraperitoneal air consistent with rupture of a hollow viscus. Large volume of ascites. Exact site for the perforated viscus is indeterminate. Some of the free intraperitoneal air extends into the posterior mediastinum/GE junction region. Subjective wall thickening of the distal esophagus. There are 2 somewhat thick walled cystic masses associated with the stomach, possibly relating to gastric cysts versus pseudocysts. Areas of abscess not excluded . Atrophic appearance to the pancreas. Not stated previously, there is also a 3.8 mm hypodensity in the body of the pancreas which could reflect tiny cyst adenoma. Dilated fluid-filled loops of small bowel, with several small bowel loops having a thick-walled appearance. Findings may reflect reactive enteritis with ileus. Partial or incomplete obstruction not excluded. Small bibasilar pleural effusions.. TECHNICAL DOCUMENTATION: Quality ID # 436: Final reports with documentation of one or more dose reduction techniques (e.g., Automated exposure control, adjustment of the mA and/or kV according to patient size, use of iterative reconstruction technique) copyright 2011 [employer]- All Rights Reserved Chest X-Ray 06/17/18 06:00 IMPRESSION: Endotracheal tube tip is at the thoracic inlet, 10.9 cm from ashley; consider advancement/replacement of the endotracheal tube by 6 cm. Else, stable. Assessment & Plan - Diagnosis (1) Acute respiratory failure with hypoxia Is this a current diagnosis for this admission?: Yes (2) Anemia Qualifiers: Anemia type: unspecified type Qualified Code(s): D64.9 - Anemia, unspecified Is this a current diagnosis for this admission?: Yes (3) Bowel perforation Is this a current diagnosis for this admission?: Yes (4) Hypoalbuminemia Is this a current diagnosis for this admission?: Yes (5) Hypomagnesemia Is this a current diagnosis for this admission?: Yes (6) Severe sepsis Is this a current diagnosis for this admission?: Yes - Time Time Spent with patient: Less than 15 minutes Medications reviewed and adjusted accordingly: Yes - Inpatient Certification Based on my medical assessment, after consideration of the patient's comorbidities, presenting symptoms, or acuity I expect that the services needed warrant INPATIENT care.: Yes Medical Necessity: Need for IV Antibiotics - Plan Summary Plan Summary: Patient is still being treated and remains under Surgical service
[2018-06-17 18:34] VITALS: BP 107/52
--- NOTE | 2018-06-18 14:37 | DEATH SUMMARY E ---
Summary NAME: TAN ARAUJO : 1930 AGE: 87Y ADMITTED: 06/10/2018 : 06/17/2018 FINAL DIAGNOSIS: Perforated gastric cancer. PROCEDURE: On June 11 the patient underwent laparotomy, omental patch repair of perforated gastric cancer, feeding jejunostomy tube placement, peritoneal cavity washout. COMPLICATIONS FROM PROCEDURE: None. HOSPITAL COURSE: This is an 87-year-old female who presented to the hospital in the emergency room department with abdominal pain. A CAT scan of the abdomen was done revealing a perforation of an upper abdominal viscus. The patient underwent an exploratory laparotomy by Dr. Blunt and she was found to have a large perforated gastric cancer. This was repaired with an omental patch. Postoperatively the patient remained intubated in the ICU. However, because her condition she progressively deteriorated and due to the fact that her cancer was deemed not curable, a decision was made in agreement with her family to keep the patient intubated for the first postoperative days. Once all her family gathered on June 17, 2018, the patient underwent terminal extubation. She was placed on comfort care with IV pain medications and narcotics. She on June 17, 2018. DICTATING PHYSICIAN: BRAXTON GARCIA M.D. [id number] PHY#: [id number] ID: [id number] JOB#: [id number] ACCT: [id number] cc:BRAXTON GARCIA M.D. > MTDD
--- NOTE | 2018-08-02 11:21 | PDOC PROGRESS REPORT ---
Subjective Progress Note for:: 06/12/18 Subjective:: Intubated and sedated Reason For Visit: PERFORATED GASTRIC ULCER Physical Exam Vital Signs: Temp Pulse Resp BP Pulse Ox 97.2 F 61 14 109/77 100 06/12/18 09:20 06/12/18 00:53 06/12/18 09:20 06/12/18 09:20 06/12/18 09:20 Intake & Output 06/11/18 06/12/18 06/13/18 06:59 06:59 06:59 Intake Total 2650 6237 69 Output Total 225 885 135 Balance 2425 5352 -66 Weight 55.9 kg 64.1 kg General appearance: PRESENT: no acute distress, disheveled, thin. ABSENT: cooperative Head exam: PRESENT: atraumatic, normocephalic Eye exam: PRESENT: conjunctiva pale. ABSENT: nystagmus, periorbital swelling, scleral icterus Mouth exam: PRESENT: dry mucosa, neck supple, tongue midline, other - ET tube in place Neck exam: ABSENT: carotid bruit, full ROM, JVD, lymphadenopathy, meningismus, tenderness, thyromegaly, tracheal deviation, tracheostomy, other Respiratory exam: PRESENT: decreased breath sounds, prolonged expiratory phas, rales, rhonchi, unlabored. ABSENT: retraction, stridor Cardiovascular exam: PRESENT: RRR, +S1, +S2 Pulses: PRESENT: normal radial pulses GI/Abdominal exam: PRESENT: other - Status post surgery Gentrourinary exam: PRESENT: indwelling catheter Extremities exam: PRESENT: pedal edema. ABSENT: calf tenderness, clubbing, joint swelling Musculoskeletal exam: ABSENT: ambulatory, deformity, dislocation Neurological exam: ABSENT: awake Skin exam: PRESENT: dry, warm Results Laboratory Results: 06/12/18 04:27 06/12/18 04:27 06/11/18 06/12/18 06/12/18 11:52 04:27 04:27 WBC RBC Hgb Hct MCV MCH MCHC RDW Plt Count Seg Neutrophils % Lymphocytes % Monocytes % Eosinophils % Basophils % Absolute Neutrophils Absolute Lymphocytes Absolute Monocytes Absolute Eosinophils Absolute Basophils Carbonic Acid 1.18 Cancelled HCO3/H2CO3 Ratio 17:1 Cancelled ABG pH 7.34 L Cancelled ABG pCO2 39.3 Cancelled ABG pO2 213.5 H Cancelled ABG HCO3 20.5 Cancelled ABG O2 Saturation 99.4 H Cancelled ABG Base Excess -4.9 Cancelled FiO2 40% Cancelled Sodium 133.5 L Potassium 4.1 Chloride 110 H Carbon Dioxide 19 L Anion Gap 5 BUN 14 Creatinine 0.43 L Est GFR ( Amer) > 60 Est GFR (Non-Af Amer) > 60 Glucose 127 H Lactic Acid Calcium 6.9 L* Magnesium 1.5 L Albumin 06/12/18 06/12/18 06/12/18 04:27 04:27 04:27 WBC 14.7 H RBC 3.40 L Hgb 10.6 L D Hct 31.0 L MCV 91 MCH 31.1 MCHC 34.1 RDW 14.5 H Plt Count 232 Seg Neutrophils % Not Reportable Lymphocytes % Not Reportable Monocytes % Not Reportable Eosinophils % Not Reportable Basophils % Not Reportable Absolute Neutrophils Not Reportable Absolute Lymphocytes Not Reportable Absolute Monocytes Not Reportable Absolute Eosinophils Not Reportable Absolute Basophils Not Reportable Carbonic Acid HCO3/H2CO3 Ratio ABG pH ABG pCO2 ABG pO2 ABG HCO3 ABG O2 Saturation ABG Base Excess FiO2 Sodium Potassium Chloride Carbon Dioxide Anion Gap BUN Creatinine Est GFR ( Amer) Est GFR (Non-Af Amer) Glucose Lactic Acid 1.0 Calcium Magnesium Albumin 1.4 L 06/12/18 05:15 WBC RBC Hgb Hct MCV MCH MCHC RDW Plt Count Seg Neutrophils % Lymphocytes % Monocytes % Eosinophils % Basophils % Absolute Neutrophils Absolute Lymphocytes Absolute Monocytes Absolute Eosinophils Absolute Basophils Carbonic Acid 0.98 L HCO3/H2CO3 Ratio 19:1 ABG pH 7.38 ABG pCO2 32.5 L ABG pO2 144.0 H ABG HCO3 18.7 L ABG O2 Saturation 98.8 H ABG Base Excess -5.6 FiO2 30% Sodium Potassium Chloride Carbon Dioxide Anion Gap BUN Creatinine Est GFR ( Amer) Est GFR (Non-Af Amer) Glucose Lactic Acid Calcium Magnesium Albumin Impressions: KUB X-Ray 06/10/18 18:05 IMPRESSION: NO RADIOGRAPHIC EVIDENCE FOR ACUTE ABDOMINAL DISEASE. Abdomen/Pelvis CT 06/10/18 19:07 IMPRESSION: Free intraperitoneal air consistent with rupture of a hollow viscus. Large volume of ascites. Exact site for the perforated viscus is indeterminate. Some of the free intraperitoneal air extends into the posterior mediastinum/GE junction region. Subjective wall thickening of the distal esophagus. There are 2 somewhat thick walled cystic masses associated with the stomach, possibly relating to gastric cysts versus pseudocysts. Areas of abscess not excluded . Atrophic appearance to the pancreas. Not stated previously, there is also a 3.8 mm hypodensity in the body of the pancreas which could reflect tiny cyst adenoma. Dilated fluid-filled loops of small bowel, with several small bowel loops having a thick-walled appearance. Findings may reflect reactive enteritis with ileus. Partial or incomplete obstruction not excluded. Small bibasilar pleural effusions.. TECHNICAL DOCUMENTATION: Quality ID # 436: Final reports with documentation of one or more dose reduction techniques (e.g., Automated exposure control, adjustment of the mA and/or kV according to patient size, use of iterative reconstruction technique) copyright 2011 [employer]- All Rights Reserved Chest X-Ray 06/12/18 06:00 IMPRESSION: Persistent left basilar opacity with small left effusion. SUPPORT DEVICE(S) IN EXPECTED LOCATIONS. Assessment & Plan - Diagnosis (1) Acute respiratory failure with hypoxia Is this a current diagnosis for this admission?: Yes Plan: Subsequent mechanical ventilation control ventilation appropriate for maintaining pH balance as well as acceptable oxygenation (2) Bowel perforation Is this a current diagnosis for this admission?: Yes Plan: As per surgery (3) Lactic acidemia Is this a current diagnosis for this admission?: Yes Plan: no Change (4) Severe sepsis Is this a current diagnosis for this admission?: Yes Plan: Currently using vasopressor agents - Time Total Critical Time (Minutes): 45
--- NOTE | 2018-08-02 11:23 | PDOC PROGRESS REPORT ---
Subjective Progress Note for:: 06/13/18 Subjective:: Intubated and sedated Reason For Visit: PERFORATED GASTRIC ULCER Physical Exam Vital Signs: Temp Pulse Resp BP Pulse Ox 99.7 F 66 14 107/54 L 100 06/13/18 10:35 06/13/18 08:47 06/13/18 10:35 06/13/18 10:35 06/13/18 10:35 Intake & Output 06/12/18 06/13/18 06/14/18 06:59 06:59 06:59 Intake Total 6219 1760 54 Output Total 884 0485 Balance 0022 -5472 54 Weight 64.1 kg 62.9 kg General appearance: PRESENT: no acute distress, disheveled, well-developed, well-nourished. ABSENT: cooperative Head exam: PRESENT: atraumatic, normocephalic Eye exam: PRESENT: conjunctiva pale. ABSENT: nystagmus, periorbital swelling Mouth exam: PRESENT: dry mucosa, neck supple, tongue midline, other - ET tube Neck exam: ABSENT: carotid bruit, full ROM, JVD, lymphadenopathy, meningismus, tenderness, thyromegaly, tracheal deviation, tracheostomy, other Respiratory exam: PRESENT: decreased breath sounds, prolonged expiratory phas, rales, rhonchi, symmetrical, unlabored. ABSENT: retraction, stridor Cardiovascular exam: PRESENT: RRR, +S1, +S2 Pulses: PRESENT: normal radial pulses GI/Abdominal exam: PRESENT: other - As per surgery Gentrourinary exam: PRESENT: indwelling catheter Extremities exam: PRESENT: pedal edema. ABSENT: calf tenderness, clubbing, joint swelling Musculoskeletal exam: ABSENT: deformity, dislocation Neurological exam: ABSENT: awake Skin exam: PRESENT: dry, warm Results Laboratory Results: 06/13/18 04:35 06/13/18 04:35 06/13/18 06/13/18 06/13/18 04:35 04:35 04:44 WBC 14.1 H RBC 3.42 L Hgb 10.5 L Hct 30.9 L MCV 91 MCH 30.9 MCHC 34.1 RDW 14.3 H Plt Count 207 Seg Neutrophils % Not Reportable Lymphocytes % Not Reportable Monocytes % Not Reportable Eosinophils % Not Reportable Basophils % Not Reportable Absolute Neutrophils Not Reportable Absolute Lymphocytes Not Reportable Absolute Monocytes Not Reportable Absolute Eosinophils Not Reportable Absolute Basophils Not Reportable Carbonic Acid 0.99 L HCO3/H2CO3 Ratio 21:1 ABG pH 7.43 ABG pCO2 32.9 L ABG pO2 97.6 ABG HCO3 21.5 ABG O2 Saturation 97.7 ABG Base Excess -2.1 FiO2 25% Sodium 135.8 L Potassium 3.5 L Chloride 107 Carbon Dioxide 25 Anion Gap 4 L BUN 12 Creatinine 0.58 Est GFR ( Amer) > 60 Est GFR (Non-Af Amer) > 60 Glucose 100 Calcium 7.6 L Magnesium 1.9 Total Bilirubin 0.3 AST 17 ALT 25 Alkaline Phosphatase 34 L Total Protein 3.6 L Albumin 1.7 L 06/10/18 22:17 Barrett Catheter Urine Culture - Final NO GROWTH 2 DAYS Impressions: KUB X-Ray 06/10/18 18:05 IMPRESSION: NO RADIOGRAPHIC EVIDENCE FOR ACUTE ABDOMINAL DISEASE. Abdomen/Pelvis CT 06/10/18 19:07 IMPRESSION: Free intraperitoneal air consistent with rupture of a hollow viscus. Large volume of ascites. Exact site for the perforated viscus is indeterminate. Some of the free intraperitoneal air extends into the posterior mediastinum/GE junction region. Subjective wall thickening of the distal esophagus. There are 2 somewhat thick walled cystic masses associated with the stomach, possibly relating to gastric cysts versus pseudocysts. Areas of abscess not excluded . Atrophic appearance to the pancreas. Not stated previously, there is also a 3.8 mm hypodensity in the body of the pancreas which could reflect tiny cyst adenoma. Dilated fluid-filled loops of small bowel, with several small bowel loops having a thick-walled appearance. Findings may reflect reactive enteritis with ileus. Partial or incomplete obstruction not excluded. Small bibasilar pleural effusions.. TECHNICAL DOCUMENTATION: Quality ID # 436: Final reports with documentation of one or more dose reduction techniques (e.g., Automated exposure control, adjustment of the mA and/or kV according to patient size, use of iterative reconstruction technique) copyright 2011 [employer]- All Rights Reserved Chest X-Ray 06/13/18 06:00 IMPRESSION: Overall, no significant change when compared to the most recent study. There is persistent volume loss in the left lung base. The life support lines and tubes are grossly stable. Assessment & Plan - Diagnosis (1) Acute respiratory failure with hypoxia Is this a current diagnosis for this admission?: Yes Plan: Subsequent mechanical ventilation control ventilation appropriate for maintaining pH balance as well as acceptable oxygenation (2) Bowel perforation Is this a current diagnosis for this admission?: Yes Plan: As per surgery (3) Lactic acidemia Is this a current diagnosis for this admission?: Yes Plan: ltd Improvement (4) Severe sepsis Is this a current diagnosis for this admission?: Yes Plan: Currently using vasopressor agents - Time Total Critical Time (Minutes): 50
--- NOTE | 2018-08-02 11:25 | PDOC PROGRESS REPORT ---
Subjective Progress Note for:: 06/14/18 Subjective:: Intubated and sedated Reason For Visit: PERFORATED GASTRIC ULCER Physical Exam Vital Signs: Temp Pulse Resp BP Pulse Ox 99.9 F 82 14 117/72 100 06/15/18 08:00 06/15/18 08:00 06/15/18 08:00 06/15/18 08:00 06/15/18 08:00 Intake & Output 06/14/18 06/15/18 06/16/18 06:59 06:59 06:59 Intake Total 593 886 Output Total 2335 850 520 Balance -1742 36 -520 Weight 59.3 kg 58.6 kg General appearance: PRESENT: no acute distress, disheveled, obese. ABSENT: cooperative Head exam: PRESENT: atraumatic, normocephalic Eye exam: PRESENT: conjunctiva pale. ABSENT: EOMI, nystagmus, periorbital swelling, scleral icterus Mouth exam: PRESENT: dry mucosa, neck supple, tongue midline, other - ET tube Neck exam: ABSENT: carotid bruit, full ROM, JVD, lymphadenopathy, meningismus, tenderness, thyromegaly, tracheal deviation, tracheostomy, other Respiratory exam: PRESENT: decreased breath sounds, prolonged expiratory phas, rales, rhonchi, unlabored. ABSENT: retraction, stridor Cardiovascular exam: PRESENT: RRR, +S1, +S2, tachycardia Pulses: PRESENT: normal radial pulses GI/Abdominal exam: PRESENT: other - Status post surgery Gentrourinary exam: PRESENT: indwelling catheter Extremities exam: PRESENT: +1 edema. ABSENT: calf tenderness, clubbing, joint swelling Musculoskeletal exam: ABSENT: ambulatory, deformity, dislocation Neurological exam: ABSENT: awake Skin exam: PRESENT: dry, warm Results Laboratory Results: 06/15/18 05:22 06/15/18 05:22 06/15/18 06/15/18 05:22 05:22 WBC 19.8 H RBC 3.87 Hgb 11.7 L Hct 34.3 L MCV 89 MCH 30.2 MCHC 34.0 RDW 13.9 Plt Count 211 Seg Neutrophils % Not Reportable Lymphocytes % Not Reportable Monocytes % Not Reportable Eosinophils % Not Reportable Basophils % Not Reportable Absolute Neutrophils Not Reportable Absolute Lymphocytes Not Reportable Absolute Monocytes Not Reportable Absolute Eosinophils Not Reportable Absolute Basophils Not Reportable Sodium 131.6 L Potassium 3.6 Chloride 98 Carbon Dioxide 29 Anion Gap 5 BUN 14 Creatinine 0.43 L Est GFR ( Amer) > 60 Est GFR (Non-Af Amer) > 60 Glucose 96 Calcium 7.7 L Impressions: KUB X-Ray 06/10/18 18:05 IMPRESSION: NO RADIOGRAPHIC EVIDENCE FOR ACUTE ABDOMINAL DISEASE. Abdomen/Pelvis CT 06/10/18 19:07 IMPRESSION: Free intraperitoneal air consistent with rupture of a hollow viscus. Large volume of ascites. Exact site for the perforated viscus is indeterminate. Some of the free intraperitoneal air extends into the posterior mediastinum/GE junction region. Subjective wall thickening of the distal esophagus. There are 2 somewhat thick walled cystic masses associated with the stomach, possibly relating to gastric cysts versus pseudocysts. Areas of abscess not excluded . Atrophic appearance to the pancreas. Not stated previously, there is also a 3.8 mm hypodensity in the body of the pancreas which could reflect tiny cyst adenoma. Dilated fluid-filled loops of small bowel, with several small bowel loops having a thick-walled appearance. Findings may reflect reactive enteritis with ileus. Partial or incomplete obstruction not excluded. Small bibasilar pleural effusions.. TECHNICAL DOCUMENTATION: Quality ID # 436: Final reports with documentation of one or more dose reduction techniques (e.g., Automated exposure control, adjustment of the mA and/or kV according to patient size, use of iterative reconstruction technique) copyright 2011 [employer]- All Rights Reserved Chest X-Ray 06/15/18 06:00 IMPRESSION: 1. Tip of an endotracheal tube is 8 cm from the ashley at the thoracic inlet; recommend 3 cm advancement of the endotracheal tube. 2. Increased left lower lobar opacity. Assessment & Plan - Diagnosis (1) Acute respiratory failure with hypoxia Is this a current diagnosis for this admission?: Yes Plan: Subsequent mechanical ventilation control ventilation appropriate for maintaining pH balance as well as acceptable oxygenation (2) Gastric perforation Is this a current diagnosis for this admission?: Yes Plan: As per surgery (3) Lactic acidemia Is this a current diagnosis for this admission?: Yes Plan: ltd Improvement (4) Severe sepsis Is this a current diagnosis for this admission?: Yes Plan: Currently using vasopressor agents - Time Total Critical Time (Minutes): 45
--- NOTE | 2018-08-02 11:27 | PDOC PROGRESS REPORT ---
Subjective Progress Note for:: 06/15/18 Subjective:: Intubated and sedated Reason For Visit: PERFORATED GASTRIC ULCER Physical Exam Vital Signs: Temp Pulse Resp BP Pulse Ox 99.9 F 82 14 117/72 100 06/15/18 08:00 06/15/18 08:00 06/15/18 08:00 06/15/18 08:00 06/15/18 08:00 Intake & Output 06/14/18 06/15/18 06/16/18 06:59 06:59 06:59 Intake Total 593 886 Output Total 2335 850 520 Balance -1742 36 -520 Weight 59.3 kg 58.6 kg General appearance: PRESENT: no acute distress, disheveled, obese. ABSENT: cooperative Head exam: PRESENT: atraumatic, normocephalic Eye exam: PRESENT: conjunctiva pale. ABSENT: EOMI, nystagmus, periorbital swelling Mouth exam: PRESENT: dry mucosa, neck supple, tongue midline, other - Endotracheal tube Neck exam: ABSENT: carotid bruit, full ROM, JVD, lymphadenopathy, meningismus, tenderness, thyromegaly, tracheal deviation, tracheostomy, other Respiratory exam: PRESENT: decreased breath sounds, prolonged expiratory phas, rales, rhonchi, unlabored. ABSENT: retraction, stridor Cardiovascular exam: PRESENT: RRR, +S1, +S2, tachycardia GI/Abdominal exam: PRESENT: other - Status post surgery Gentrourinary exam: PRESENT: indwelling catheter Extremities exam: PRESENT: +1 edema. ABSENT: calf tenderness, clubbing, joint swelling Musculoskeletal exam: ABSENT: ambulatory, deformity, dislocation Neurological exam: ABSENT: awake Skin exam: PRESENT: dry, warm Results Laboratory Results: 06/15/18 05:22 06/15/18 05:22 06/15/18 06/15/18 05:22 05:22 WBC 19.8 H RBC 3.87 Hgb 11.7 L Hct 34.3 L MCV 89 MCH 30.2 MCHC 34.0 RDW 13.9 Plt Count 211 Seg Neutrophils % Not Reportable Lymphocytes % Not Reportable Monocytes % Not Reportable Eosinophils % Not Reportable Basophils % Not Reportable Absolute Neutrophils Not Reportable Absolute Lymphocytes Not Reportable Absolute Monocytes Not Reportable Absolute Eosinophils Not Reportable Absolute Basophils Not Reportable Sodium 131.6 L Potassium 3.6 Chloride 98 Carbon Dioxide 29 Anion Gap 5 BUN 14 Creatinine 0.43 L Est GFR ( Amer) > 60 Est GFR (Non-Af Amer) > 60 Glucose 96 Calcium 7.7 L Impressions: KUB X-Ray 06/10/18 18:05 IMPRESSION: NO RADIOGRAPHIC EVIDENCE FOR ACUTE ABDOMINAL DISEASE. Abdomen/Pelvis CT 06/10/18 19:07 IMPRESSION: Free intraperitoneal air consistent with rupture of a hollow viscus. Large volume of ascites. Exact site for the perforated viscus is indeterminate. Some of the free intraperitoneal air extends into the posterior mediastinum/GE junction region. Subjective wall thickening of the distal esophagus. There are 2 somewhat thick walled cystic masses associated with the stomach, possibly relating to gastric cysts versus pseudocysts. Areas of abscess not excluded . Atrophic appearance to the pancreas. Not stated previously, there is also a 3.8 mm hypodensity in the body of the pancreas which could reflect tiny cyst adenoma. Dilated fluid-filled loops of small bowel, with several small bowel loops having a thick-walled appearance. Findings may reflect reactive enteritis with ileus. Partial or incomplete obstruction not excluded. Small bibasilar pleural effusions.. TECHNICAL DOCUMENTATION: Quality ID # 436: Final reports with documentation of one or more dose reduction techniques (e.g., Automated exposure control, adjustment of the mA and/or kV according to patient size, use of iterative reconstruction technique) copyright 2011 [employer]- All Rights Reserved Chest X-Ray 06/15/18 06:00 IMPRESSION: 1. Tip of an endotracheal tube is 8 cm from the ashley at the thoracic inlet; recommend 3 cm advancement of the endotracheal tube. 2. Increased left lower lobar opacity. Assessment & Plan - Diagnosis (1) Acute respiratory failure with hypoxia Is this a current diagnosis for this admission?: Yes Plan: Subsequent mechanical ventilation control ventilation appropriate for maintaining pH balance as well as acceptable oxygenation (2) Hypoalbuminemia Is this a current diagnosis for this admission?: Yes Plan: Albumin 1.4 very severe (3) Severe sepsis Is this a current diagnosis for this admission?: Yes Plan: Currently using vasopressor agents - Time Total Critical Time (Minutes): 45
--- NOTE | 2018-08-02 11:29 | PDOC PROGRESS REPORT ---
Subjective Progress Note for:: 06/16/18 Subjective:: Intubated and sedated Reason For Visit: PERFORATED GASTRIC ULCER Physical Exam Vital Signs: Temp Pulse Resp BP Pulse Ox 98.6 F 89 14 103/59 L 99 06/16/18 06:38 06/16/18 08:28 06/16/18 08:28 06/16/18 06:38 06/16/18 08:28 Intake & Output 06/15/18 06/16/18 06/17/18 06:59 06:59 06:59 Intake Total 886 858 250 Output Total 850 1205 200 Balance 36 -347 50 Weight 58.6 kg 60 kg General appearance: PRESENT: no acute distress, disheveled, obese. ABSENT: cooperative Head exam: PRESENT: atraumatic, normocephalic Eye exam: PRESENT: conjunctiva pale. ABSENT: EOMI, nystagmus, periorbital swelling, scleral icterus Mouth exam: PRESENT: dry mucosa, neck supple, tongue midline, other - ET tube Neck exam: ABSENT: carotid bruit, full ROM, JVD, lymphadenopathy, meningismus, tenderness, thyromegaly, tracheal deviation, tracheostomy, other Respiratory exam: PRESENT: decreased breath sounds, prolonged expiratory phas, rales, rhonchi, unlabored. ABSENT: retraction, stridor, tachypnea Cardiovascular exam: PRESENT: RRR, +S1, +S2 Pulses: PRESENT: normal radial pulses GI/Abdominal exam: PRESENT: other - Status post surgery Extremities exam: PRESENT: +1 edema. ABSENT: calf tenderness, clubbing, full ROM, joint swelling Musculoskeletal exam: ABSENT: ambulatory, deformity, dislocation Neurological exam: ABSENT: awake Skin exam: PRESENT: dry, warm Results Laboratory Results: 06/16/18 05:15 06/16/18 05:15 06/16/18 06/16/18 06/16/18 05:15 05:15 05:15 WBC 21.4 H RBC 3.84 Hgb 11.6 L Hct 34.2 L MCV 89 MCH 30.3 MCHC 33.9 RDW 14.0 Plt Count 233 Seg Neutrophils % Not Reportable Lymphocytes % Not Reportable Monocytes % Not Reportable Eosinophils % Not Reportable Basophils % Not Reportable Absolute Neutrophils Not Reportable Absolute Lymphocytes Not Reportable Absolute Monocytes Not Reportable Absolute Eosinophils Not Reportable Absolute Basophils Not Reportable Carbonic Acid 0.98 L HCO3/H2CO3 Ratio 26:1 ABG pH 7.52 H ABG pCO2 32.6 L ABG pO2 85.4 ABG HCO3 25.8 H ABG O2 Saturation 97.3 ABG Base Excess 3.3 FiO2 25% Sodium 130.8 L Potassium 3.5 L Chloride 98 Carbon Dioxide 29 Anion Gap 4 L BUN 12 Creatinine 0.53 Est GFR ( Amer) > 60 Est GFR (Non-Af Amer) > 60 Glucose 120 H Calcium 7.9 L 06/10/18 22:30 Blood Blood Culture - Final NO GROWTH IN 5 DAYS 06/10/18 20:00 Blood Blood Culture - Final NO GROWTH IN 5 DAYS Impressions: KUB X-Ray 06/10/18 18:05 IMPRESSION: NO RADIOGRAPHIC EVIDENCE FOR ACUTE ABDOMINAL DISEASE. Abdomen/Pelvis CT 06/10/18 19:07 IMPRESSION: Free intraperitoneal air consistent with rupture of a hollow viscus. Large volume of ascites. Exact site for the perforated viscus is indeterminate. Some of the free intraperitoneal air extends into the posterior mediastinum/GE junction region. Subjective wall thickening of the distal esophagus. There are 2 somewhat thick walled cystic masses associated with the stomach, possibly relating to gastric cysts versus pseudocysts. Areas of abscess not excluded . Atrophic appearance to the pancreas. Not stated previously, there is also a 3.8 mm hypodensity in the body of the pancreas which could reflect tiny cyst adenoma. Dilated fluid-filled loops of small bowel, with several small bowel loops having a thick-walled appearance. Findings may reflect reactive enteritis with ileus. Partial or incomplete obstruction not excluded. Small bibasilar pleural effusions.. TECHNICAL DOCUMENTATION: Quality ID # 436: Final reports with documentation of one or more dose reduction techniques (e.g., Automated exposure control, adjustment of the mA and/or kV according to patient size, use of iterative reconstruction technique) copyright 2011 [employer]- All Rights Reserved Chest X-Ray 06/16/18 06:00 IMPRESSION: Tip of an endotracheal tube is at the thoracic inlet, 8.5 cm from the ashley; consider advancement of the endotracheal tube by 3.5 cm. Else, stable. Assessment & Plan - Diagnosis (1) Acute respiratory failure with hypoxia Is this a current diagnosis for this admission?: Yes Plan: Subsequent mechanical ventilation control ventilation appropriate for maintaining pH balance as well as acceptable oxygenation (2) Gastric perforation Is this a current diagnosis for this admission?: Yes Plan: As per surgery (3) Hypoalbuminemia Is this a current diagnosis for this admission?: Yes Plan: Albumin 1.4 very severe (4) Severe sepsis Is this a current diagnosis for this admission?: Yes Plan: Currently using vasopressor agents - Time Total Critical Time (Minutes): 50
--- NOTE | 2018-08-02 11:30 | PDOC PROGRESS REPORT ---
Subjective Progress Note for:: 06/17/18 Subjective:: Intubated and sedated Reason For Visit: PERFORATED GASTRIC ULCER Physical Exam Vital Signs: Temp Pulse Resp BP Pulse Ox 99.5 F 82 12 113/56 L 99 06/17/18 08:00 06/17/18 08:00 06/17/18 08:00 06/17/18 08:00 06/17/18 08:00 Intake & Output 06/16/18 06/17/18 06/18/18 06:59 06:59 06:59 Intake Total 858 1222 222 Output Total 1205 1065 240 Balance -347 157 -18 Weight 60 kg 59.8 kg General appearance: PRESENT: no acute distress, disheveled, obese. ABSENT: cooperative Head exam: PRESENT: atraumatic, normocephalic Eye exam: PRESENT: conjunctiva pale. ABSENT: EOMI, nystagmus, periorbital swelling, scleral icterus Mouth exam: PRESENT: dry mucosa, neck supple, tongue midline, other - ET tube Neck exam: ABSENT: carotid bruit, full ROM, JVD, lymphadenopathy, meningismus, tenderness, thyromegaly, tracheal deviation, tracheostomy, other Respiratory exam: PRESENT: decreased breath sounds, prolonged expiratory phas, rales, rhonchi, unlabored. ABSENT: retraction, stridor Cardiovascular exam: PRESENT: RRR, +S1, +S2 Pulses: PRESENT: normal radial pulses GI/Abdominal exam: PRESENT: other - Status post surgery Gentrourinary exam: PRESENT: indwelling catheter Extremities exam: PRESENT: +1 edema. ABSENT: calf tenderness, clubbing, full ROM, joint swelling Musculoskeletal exam: ABSENT: ambulatory, deformity, dislocation Neurological exam: ABSENT: awake Skin exam: PRESENT: dry, warm Results Laboratory Results: 06/17/18 05:05 06/17/18 05:05 06/17/18 06/17/18 06/17/18 05:05 05:05 05:05 WBC 20.7 H RBC 3.78 Hgb 11.3 L Hct 33.3 L MCV 88 MCH 30.0 MCHC 34.0 RDW 13.9 Plt Count 249 Seg Neutrophils % Not Reportable Lymphocytes % Not Reportable Monocytes % Not Reportable Eosinophils % Not Reportable Basophils % Not Reportable Absolute Neutrophils Not Reportable Absolute Lymphocytes Not Reportable Absolute Monocytes Not Reportable Absolute Eosinophils Not Reportable Absolute Basophils Not Reportable Carbonic Acid 1.00 L HCO3/H2CO3 Ratio 26:1 ABG pH 7.53 H ABG pCO2 33.2 L ABG pO2 94.1 ABG HCO3 26.9 H ABG O2 Saturation 97.9 ABG Base Excess 4.3 FiO2 25% Sodium 129.7 L Potassium 3.7 Chloride 98 Carbon Dioxide 30 Anion Gap 2 L BUN 11 Creatinine 0.47 L Est GFR ( Amer) > 60 Est GFR (Non-Af Amer) > 60 Glucose 121 H Calcium 7.8 L Magnesium 1.9 Total Bilirubin 0.5 AST 28 ALT 27 Alkaline Phosphatase 45 Total Protein 3.7 L Albumin 1.7 L Impressions: KUB X-Ray 06/10/18 18:05 IMPRESSION: NO RADIOGRAPHIC EVIDENCE FOR ACUTE ABDOMINAL DISEASE. Abdomen/Pelvis CT 06/10/18 19:07 IMPRESSION: Free intraperitoneal air consistent with rupture of a hollow viscus. Large volume of ascites. Exact site for the perforated viscus is indeterminate. Some of the free intraperitoneal air extends into the posterior mediastinum/GE junction region. Subjective wall thickening of the distal esophagus. There are 2 somewhat thick walled cystic masses associated with the stomach, possibly relating to gastric cysts versus pseudocysts. Areas of abscess not excluded . Atrophic appearance to the pancreas. Not stated previously, there is also a 3.8 mm hypodensity in the body of the pancreas which could reflect tiny cyst adenoma. Dilated fluid-filled loops of small bowel, with several small bowel loops having a thick-walled appearance. Findings may reflect reactive enteritis with ileus. Partial or incomplete obstruction not excluded. Small bibasilar pleural effusions.. TECHNICAL DOCUMENTATION: Quality ID # 436: Final reports with documentation of one or more dose reduction techniques (e.g., Automated exposure control, adjustment of the mA and/or kV according to patient size, use of iterative reconstruction technique) copyright 2011 [employer]- All Rights Reserved Chest X-Ray 06/17/18 06:00 IMPRESSION: Endotracheal tube tip is at the thoracic inlet, 10.9 cm from ashley; consider advancement/replacement of the endotracheal tube by 6 cm. Else, stable. Assessment & Plan - Diagnosis (1) Acute respiratory failure with hypoxia Is this a current diagnosis for this admission?: Yes Plan: Subsequent mechanical ventilation control ventilation appropriate for maintaining pH balance as well as acceptable oxygenation (2) Gastric perforation Is this a current diagnosis for this admission?: Yes Plan: As per surgery (3) Hypoalbuminemia Is this a current diagnosis for this admission?: Yes Plan: Albumin 1.4 very severe (4) Severe sepsis Is this a current diagnosis for this admission?: Yes Plan: Currently using vasopressor agents - Time Total Critical Time (Minutes): 45
== END 2018-06-17 20:12 | DRG 329 ==
LOC: ER 17:26 → EH 22:28 → ICU 06-11 02:13
PROVIDERS: ADMIT Surgery; ATTEND Surgery
PROC: 0DU907Z Supplement Duodenum with Autologous Tissue Substitute, Open Approach (ICD-10-PCS; principal; 2018-06-11)
PROC: 0DHA3UZ Insertion of Feeding Device into Jejunum, Percutaneous Approach (ICD-10-PCS; 2018-06-11)
PROC: 5A1955Z Respiratory Ventilation, Greater than 96 Consecutive Hours (ICD-10-PCS; 2018-06-11)
PROC: 3E0F73Z Introduction of Anti-inflammatory into Respiratory Tract, Via Natural or Artificial Opening (ICD-10-PCS; 2018-06-11)
PROC: 3E0F73Z Introduction of Anti-inflammatory into Respiratory Tract, Via Natural or Artificial Opening (ICD-10-PCS; 2018-06-11)
DX: K25.5 Chronic or unspecified gastric ulcer with perforation (principal); J96.01 Acute respiratory failure with hypoxia; R65.20 Severe sepsis without septic shock; K63.1 Perforation of intestine (nontraumatic); K68.9 Other disorders of retroperitoneum; E87.2 Acidosis; Z51.5 Encounter for palliative care; D64.9 Anemia, unspecified; E83.42 Hypomagnesemia; I95.89 Other hypotension; E03.9 Hypothyroidism, unspecified; F03.90 Unspecified dementia, unspecified severity, without behavioral disturbance, psychotic disturbance, mood disturbance, and anxiety; E88.09 Other disorders of plasma-protein metabolism, not elsewhere classified; Z78.1 Physical restraint status; Z87.891 Personal history of nicotine dependence; Z79.899 Other long term (current) drug therapy
CPT/HCPCS: 36415; 51702; 71045; 74018; 74177; 790; 80048; 80053; 80069; 80202; 81001; 82040; 82272; 82803; 83605; 83690; 83735; 85025; 85027; 86677; 87040; 87086; 94002; 94003; 94640; 96361; 96365; 99291; J0131; J0330; J0690; J0692; J1100; J1335; J1450; J1940; J2250; J2270; J2370; J2405; J2704; J2765; J3010; J3370; J3475; J3480; J3490; J7030; J7040; J7060; J7614; P9047; S0164